=== PATIENT | female | born 1950 | race Caucasian/White ===

== ENCOUNTER 2016-04-16 12:16 | Emergency (ER) | payer MEDICARE, OTHER ==
[~2016-04-16] VITALS: Ht 157.5 cm; Wt 180.0 kg
[2016-04-16 12:16] VITALS: Ht 157.5 cm; Wt 180.0 kg
[~2016-04-16 12:16] MED LIST: BENAZEPRIL; BP MED; HTN MED; PAIN MED
--- NOTE | 2016-04-16 12:52 | ERD ---
ER Documentation Chief Complaint Date/Time DATE: 04/16/16 TIME: 12:50 Chief Complaint complains of a ground level stumble and fall last night HPI Patient is a 66-year-old female who presents with right-sided rib pain after mechanical ground-level fall. The patient states that she was walking to the bathroom at night and tripped over her slippers and struck her ribs against furniture. Denies head trauma, denies abdominal pain, denies syncope. Patient denies dyspnea. Patient states that she has pain in her right lower ribs with deep inspiration. Although not initially disclosed, prior to discharge patient states that she has had a cough for 3 days productive of yellow sputum. No measured fever. ROS All systems reviewed and are negative except as per history of present illness. Medications Home Meds Active Scripts Guaifenesin (MUCUS ER) 600 Mg Tablet.er, 600 MG PO BID, #14 TAB Prov:TAZ LANDIS 04/16/16 Tramadol HCl (Tramadol HCl) 50 Mg Tablet, 50 MG PO Q6 Y for PAIN, #24 TAB Prov:TAZ LANDIS 04/16/16 Reported Medications [Pain Med] No Conflict Check 01/27/11 [Htn Med] No Conflict Check 01/27/11 [Benazepril] No Conflict Check 01/27/11 [Bp Med] No Conflict Check 01/27/11 Allergies Allergies: Coded Allergies: No Known Allergy (Unverified , 01/28/11) PMhx/Soc Past medical history: Hypertension Past surgical history: Partial thyroidectomy, oophorectomy, partial gastrectomy , 3 Social history: Denies tobacco use History of Surgery: Yes Anesthesia Reaction: No Hx Neurological Disorder: No Hx Respiratory Disorders: No Hx Cardiac Disorders: Yes (HTN.HEP C) Hx Psychiatric Problems: No Hx Miscellaneous Medical Probl: No (PICC LINE INSERTED YESTERDAY) Hx Alcohol Use: No Hx Substance Use: No Hx Tobacco Use: No FmHx Noncontributory Family History: No coronary disease, No diabetes Physical Exam Vitals Vital Signs Date Time Temp Pulse Resp B/P Pulse Ox O2 Delivery O2 Flow Rate FiO2 04/16/16 12:16 98.4 69 20 144/69 98 Physical Exam Const: Alert, oriented, no acute Head: Atraumatic Eyes: Normal Conjunctiva ENT: Normal External Ears, Nose and Mouth. Neck: Full range of motion..~ No meningismus. NEXUS negative Resp: Anterior and lateral right-sided rib tenderness. No crepitus. No subcutaneous emphysema. Clear to auscultation bilaterally Cardio: Regular rate and rhythm, no murmurs Abd: Soft, non tender, non distended. Normal bowel sounds Skin: No petechiae or rashes Back: No midline or flank tenderness Ext: No cyanosis, or edema Neur: Awake and alert Psych: Normal Mood and Affect Results 24 hrs Current Medications Medications (Trade) Dose Ordered Sig/Bettye Route PRN Reason Start Time Stop Time Status Last Admin Dose Admin Acetaminophen/ Hydrocodone Bitart ([place] (5/325)) 1 tab ONCE ONCE PO 04/16/16 13:00 04/16/16 13:01 DC 04/16/16 13:20 Procedures/MDM MDM: Patient with mechanical ground-level fall and trauma to right chest wall. X-ray negative for fracture. Patient also reports cough productive of yellow sputum. No evidence of infiltrate on chest x-ray, afebrile, normal O2 sat. We will give prescription for guaifenesin. Tramadol for pain from rib contusion. Departure Diagnosis: Primary Impression: URI (upper respiratory infection) Condition: TAZ Pepe Apr 16, 2016 12:51
[2016-04-16] MEDS ORDERED: HYDROCODONE/APAP (5/325) TAB PO ONE (13:00)
--- NOTE | 2016-04-16 13:17 | RADRPT ---
PROCEDURE: XR right rib series. CLINICAL INDICATION: Rib pain TECHNIQUE: 2 views of the rib cage are available for review COMPARISON: No comparison study available FINDINGS: The ribs are normal in mineralization and architecture. No fracture is identified. No osseous lesi on is identified. The visualized lung miner are unremarkable. The pleural spaces are unremarkable . No effusion or pneumothorax is identified. IMPRESSION: Unremarkable examination RPTAT: HGDB .Oscar Bell MD, MD Date Time Electronically viewed and signed by .Oscar Bell MD, on 04/16/2016 13:17 .B/
[2016-04-16] MEDS ORDERED: TRAM50TA2 PO (13:26)
--- NOTE | 2016-04-16 14:17 | RADRPT ---
PROCEDURE: XR Chest. CLINICAL INDICATION: Cough. TECHNIQUE: Single frontal view. COMPARISON: None. FINDINGS: The lungs are clear. The heart size is normal. There is calcification in the aorta consistent with atherosclerosis. There is no pleural effusion. There is no pneumothorax. IMPRESSION: 1. Atherosclerosis. 2. Clear lungs. RPTAT: QQ .Obi Izaguirre MD, MD Date Time Electronically viewed and signed by .Obi Izaguirre MD, MD on 04/16/2016 14:17 .R/
[2016-04-16] MEDS ORDERED: GUAI600T PO (14:23)
[2016-04-16 16:00] VITALS: BP 141/73; PULSE 85; RESP 20; TEMP 98.3
== END 2016-04-16 17:22 | disposition home or self-care (01) ==
LOC: E/R 12:16
DX: J06.9 Acute upper respiratory infection, unspecified (principal); R40.2252 Coma scale, best verbal response, oriented, at arrival to emergency department; I10 Essential (primary) hypertension; R40.2142 Coma scale, eyes open, spontaneous, at arrival to emergency department; R40.2362 Coma scale, best motor response, obeys commands, at arrival to emergency department; W01.190A Fall on same level from slipping, tripping and stumbling with subsequent striking against furniture, initial encounter; Y92.9 Unspecified place or not applicable
CPT/HCPCS: 71010; 71100

== ENCOUNTER 2016-09-16 10:14 | Inpatient (IN) | payer MEDICARE, OTHER ==
[~2016-09-16] VITALS: Ht 162.6 cm; Wt 100.0 kg
[~2016-09-16 10:14] MED LIST changes: +GUAI600T PO; +TRAM50TA2 PO
[2016-09-16] MEDS ORDERED: SOD CHLORIDE 0.9% 1,000 ML IV STA ×2 (10:22→13:08)
--- NOTE | 2016-09-16 10:58 | RADRPT ---
PROCEDURE: XR Chest. CLINICAL INDICATION: Altered Mental Status TECHNIQUE: A single portable AP view of the chest was obtained. COMPARISON: Chest x-ray 04/16/2016 FINDINGS: The cardiac silhouette is mildly enlarged. There are atherosclerotic calcifications of the thoracic aorta. No pneumothorax, significant pleural effusion, or parenchymal consolidation is identified. There is no evidence of significant pulmonary vascular congestion. There are degenerative changes of the spine. IMPRESSION: 1. No evidence for acute cardiopulmonary disease. 2. Mild cardiomegaly. 2. Thoracic aortic atherosclerotic disease. RPTAT: QQ Physician Bridget Date Time Electronically viewed and signed by Physician Bridget on 09/16/2016 10:58 RC/
[2016-09-16 11:17] LABS: BASOPHILS % 0.4 % (0.0-2.0); EOSINOPHILS % 0.2 % (0.0-7.0); HEMATOCRIT 28.3 % (37.0-47.0); HEMOGLOBIN 9.6 g/dl (12.0-16.0); LYMPHOCYTES # 0.9 10^3/ul (0.8-2.9); LYMPHOCYTES % 10.9 % (15.0-51.0); MEAN CORPUSCULAR HEMOGLOBIN 31.6 pg (29.0-33.0); MEAN CORPUSCULAR HGB CONC 33.9 g/dl (32.0-37.0); MEAN CORPUSCULAR VOLUME 93.1 fl (82.0-101.0); MEAN PLATELET VOLUME 9.7 fl (7.4-10.4); MONOCYTE # 0.9 10^3/ul (0.3-0.9); MONOCYTES % 10.3 % (0.0-11.0); NEUTROPHIL # 6.5 10^3/ul (1.6-7.5); NEUTROPHILS % 77.6 % (39.0-77.0); PLATELET COUNT 249 10^3/UL (140-415); RED BLOOD COUNT 3.04 10^6/ul (4.20-5.40); RED CELL DISTRIBUTION WIDTH 15.3 % (11.5-14.5); WHITE BLOOD COUNT 8.3 10^3/ul (4.8-10.8)
[2016-09-16] MEDS ORDERED: DOCU250C58 PO (11:32)
[2016-09-16] MEDS ORDERED: FER325 PO (11:33)
[2016-09-16] MEDS ORDERED: GABA400C14 PO (11:33)
[2016-09-16] MEDS ORDERED: PREM625 PO (11:34)
[2016-09-16] MEDS ORDERED: MULT-105 PO (11:34)
[2016-09-16] MEDS ORDERED: LEVO137T24 PO (11:35)
[2016-09-16] MEDS ORDERED: TOPI100T42 PO (11:36)
[2016-09-16] MEDS ORDERED: ESCI20TA PO (11:36)
[2016-09-16] MEDS ORDERED: PANT40TA3 PO (11:37)
[2016-09-16] MEDS ORDERED: OLME40TA14 PO (11:37)
[2016-09-16] MEDS ORDERED: CLON-379 PO (11:38)
[2016-09-16] MEDS ORDERED: NEBI5TAB9 PO (11:39)
[2016-09-16] MEDS ORDERED: POTA20TA96 PO (11:39)
[2016-09-16] MEDS ORDERED: ERGO500037 PO (11:39)
[2016-09-16] MEDS ORDERED: PRAM0.5T18 PO (11:40)
[2016-09-16] MEDS ORDERED: SPIR25TA PO (11:40)
[2016-09-16] MEDS ORDERED: METO2.5T12 PO (11:40)
[2016-09-16] MEDS ORDERED: DIAZ5TAB4 PO ×2 (11:41→12:31)
[2016-09-16] MEDS ORDERED: HYDR50TA3 PO (11:42)
[2016-09-16] MEDS ORDERED: HYDR-902 PO (11:43)
[2016-09-16] MEDS ORDERED: LORA1TAB PO (11:43)
[2016-09-16] MEDS ORDERED: TEMA15CA PO (11:44)
[2016-09-16] MEDS ORDERED: NITR-58 PO (11:45)
[2016-09-16 11:53] LABS: INR 0.93; PROTIME 12.5 Sec (12.2-14.2)
[2016-09-16 11:54] LABS: PARTIAL THROMBOPLASTIN TIME 33.5 Sec (25.0-35.0)
[2016-09-16 12:09] LABS: ADD UMIC YES; UR AMORPHOUS CRYSTAL FEW /HPF (NONE SEEN); UR ASCORBIC ACID NEGATIVE (NEGATIVE); UR BILIRUBIN (Dip) 1+ mg/dL (NEGATIVE); UR BLOOD (Dip) NEGATIVE (NEGATIVE); UR CLARITY CLOUDY (CLEAR); UR COLOR AMBER (YELLOW); UR GLUCOSE (Dip) NEGATIVE (NEGATIVE); UR KETONES (Dip) NEGATIVE (NEGATIVE); UR LEUKOCYTE ESTERASE (Dip) 2+ Leu/ul (NEGATIVE); UR NITRITE (Dip) NEGATIVE (NEGATIVE); UR RBC 3 /HPF (0-5); UR SQUAMOUS EPITHELIAL CELL FEW /HPF (FEW); UR TOTAL PROTEIN (Dip) 1+ mg/dl (NEGATIVE); UR UROBILINOGEN (Dip) NEGATIVE (NEGATIVE)
--- NOTE | 2016-09-16 12:13 | RADRPT ---
PROCEDURE: CT Brain without. CLINICAL INDICATION: Altered mental status. TECHNIQUE: A CT of the brain was performed on multidetector high-resolution CT scanner utilizing a xial sections from the skull base through the vertex without contrast. The scan was reviewed in sof t tissue brain and high frequency resolution bone algorithm windows. Images were reviewed on a high -resolution PACS workstation. One or more the following does reduction techniques were utilized: Aut omated exposure control, adjustment of the mA/ or kV according to patient's size, or use of iterativ e reconstruction technique. The exam CTDI = 44.68 mGy and the DLP = 720.23 mGy-cm. COMPARISON: None available. FINDINGS: The ventricles and sulci are mildly prominent indicative of volume loss. There is no intracranial h emorrhage, mass effect or midline shift. No abnormal intra-axial or extra-axial fluid collections a re seen. The kincaid/white matter differentiation is preserved. There are moderate scattered foci of hypoattenuation in the white matter, which are nonspecific in e tiology but likely reflect chronic small vessel ischemic changes. There are mild intracranial vascu lar calcifications consistent with atherosclerosis. The visualized paranasal sinuses demonstrate par tial opacification of partially visualized left maxillary sinus. The mastoid air cells are essentia lly clear. IMPRESSION: 1. No acute intracranial hemorrhage, transcortical infarction or mass effect. Please note MRI is mo re sensitive for detection of acute ischemia and can be obtained as clinically warranted. 2. Mild intracranial atherosclerosis and moderate chronic small vessel ischemic changes. 3. Mild generalized cerebral volume loss. RPTAT: AA .Daniella Ojeda MD, MD Date Time Electronically viewed and signed by .Daniella Ojeda MD, MD on 09/16/2016 12:13 .N/
[2016-09-16 12:28] LABS: BARBITURATES NEGATIVE (NEGATIVE)
[2016-09-16] MEDS ORDERED: OMEP40CA6 PO (12:28)
[2016-09-16] MEDS ORDERED: LEVO125T75 PO (12:28)
[2016-09-16 12:29] LABS: BENZODIAZEPINES POSITIVE (NEGATIVE); CANNABINOIDS NEGATIVE (NEGATIVE); COCAINE NEGATIVE (NEGATIVE); OPIATES POSITIVE (NEGATIVE)
[2016-09-16] MEDS ORDERED: TOPI50TA86 PO (12:29)
[2016-09-16] MEDS ORDERED: FURO40TA4 PO (12:29)
[2016-09-16] MEDS ORDERED: CEFTRIAXONE 1 GM/50 ML (PMX) 50 ML IVPB ONE (12:30)
[2016-09-16] MEDS ORDERED: NITR50CA38 PO (12:30)
[2016-09-16] MEDS ORDERED: GABA300C16 PO (12:31)
[2016-09-16] MEDS ORDERED: NEBI10TA2 PO (12:32)
[2016-09-16] MEDS ORDERED: METO5TAB65 PO (12:33)
[2016-09-16] MEDS ORDERED: CLON1PAT2 TD (12:34)
[2016-09-16 12:58] LABS: ALANINE AMINOTRANSFERASE 36 IU/L (13-69); ALBUMIN 3.8 g/dl (3.3-4.9); ALBUMIN/GLOBULIN RATIO 1.18; ALKALINE PHOSPHATASE 56 IU/L (42-121); ANION GAP 22 (8-16); ASPARTATE AMINO TRANSFERASE 42 IU/L (15-46); BILIRUBIN,INDIRECT 0.3 mg/dl (0-1.1); BILIRUBIN,TOTAL 0.3 mg/dl (0.2-1.3); BLOOD UREA NITROGEN 81 mg/dl (7-20); CALCIUM 8.1 mg/dl (8.4-10.2); CARBON DIOXIDE 21 mmol/L (21-31); CHLORIDE 88 mmol/L (97-110); CREATINE KINASE 275 IU/L (23-200); CREATININE 6.25 mg/dl (0.44-1.00); GLUCOSE 111 mg/dl (70-220); SODIUM 125 mmol/L (135-144)
[2016-09-16 13:06] LABS: ACETAMINOPHEN < 10.0 ug/ml (10.0-30.0); ETHANOL < 10.0 mg/dl; POTASSIUM 6.2 mmol/L (3.5-5.1); SALICYLATE < 1.0 mg/dl (5.0-30.0)
[2016-09-16] MEDS ORDERED: FUROSEMIDE 40 MG INJ IV STA (13:07)
[2016-09-16] MEDS ORDERED: ALBUTEROL 0.5% (NEB) 2.5 MG/0.5 ML AMP INH STA (13:07)
[2016-09-16] MEDS ORDERED: NA BICARBONATE 8.4% 50 ML SYG IV STA (13:07)
[2016-09-16] MEDS ORDERED: CA CHLORIDE 10% 10 ML SYRINGE IV STA (13:07)
[2016-09-16] MEDS ORDERED: NA POLYST SULFON 15 GM/60 ML BTL PO STA (13:07)
[2016-09-16 13:09] LABS: CK-MB 7.71 ng/ml (0.0-2.4); TROPONIN-I < 0.012 ng/ml (0.00-0.12)
--- NOTE | 2016-09-16 13:30 | ERA ---
ER Documentation Chief Complaint Date/Time DATE: 09/16/16 TIME: 13:21 Chief Complaint FOUND ALOC PER STAFF MEMBERS. NO TRAUMA. UNK LKWT. HPI This is a 66-year-old female that presents to the emergency department with changes in her mental status. The patient lives in assisted living facility and was found crawling on the floor in the hallway of her apartment complex. The patient indicated that she had taken one [place] prior to arrival and had not eaten for several days. The patient has also complained of frequency urgency and dysuria. She states she has had no fevers or shaking or chills. She denies any difficulty breathing. She has no chest pain or pressure and denies a headache. The patient indicated she did not experience a mechanical fall but just felt weak and unable to stand up after taking the [place] several hours prior to arrival. The patient also has a large battery of medications that was brought with her by EMS and she states she has been noncompliant with all of her medications over the past several days. The patient states she takes the [place] for chronic pain but is unable to give any further history as to where the pain is located. When reviewing the patient's medications she is on Lexapro and she states she has a history of depression but denies any suicidal or homicidal thoughts ideations and indicated this was not an intentional overdose. ROS All systems reviewed and are negative except as per history of present illness. Medications Home Meds Reported Medications Clonidine Patch (CLONIDINE PATCH) 0.2 Mg/24 Hr Patch, 1 PATCH.WK TD Q7D, #4 PATCH.WK 09/16/16 Metolazone* (Metolazone*) 5 Mg Tablet, 2.5 MG PO [id number], TAB EVERY OTHER DAY 09/16/16 Nebivolol Hcl* (Bystolic*) 10 Mg Tablet, 10 MG PO DAILY, #30 TAB 09/16/16 Gabapentin* (Gabapentin*) 300 Mg Capsule, 300 MG PO BID, #60 CAP 09/16/16 Nitrofurantoin Macrocrystal* (Macrodantin*) 50 Mg Cap, 50 MG PO DAILY, CAP 09/16/16 Topiramate* (Topiramate*) 50 Mg Tablet, 50 MG PO QHS, TAB 09/16/16 Furosemide* (Furosemide*) 40 Mg Tablet, 40 MG PO DAILY, TAB 09/16/16 Omeprazole* (Omeprazole*) 40 Mg Capsule.dr, 40 MG PO DAILY, #30 CAP 09/16/16 Levothyroxine Sodium* (Levothyroxine Sodium*) 125 Mcg Tablet, 125 MCG PO BEFORE BREAKFAST, #30 TAB 09/16/16 Lorazepam* (Lorazepam*) 1 Mg Tablet, 1 MG PO TID Y for ANXIETY, #90 TAB 09/16/16 Hydrochlorothiazide* (Hydrochlorothiazide*) 50 Mg Tab, 50 MG PO DAILY, #30 TAB 09/16/16 Diazepam* (Diazepam*) 5 Mg Tablet, 5 MG PO TID, TAB 09/16/16 Spironolactone* (Aldactone*) 25 Mg Tablet, 25 MG PO DAILY, #30 TAB 09/16/16 Pramipexole* (Mirapex*) 0.5 Mg Tablet, 0.5 MG PO DAILY, TAB 09/16/16 Ergocalciferol (Vitamin D2) (VITAMIN D2) 50,000 Unit Capsule, 42971 UNIT PO Q7D , CAP 09/16/16 Potassium Chloride* (Potassium Chloride*) 20 Meq Tablet.er, 20 MEQ PO DAILY, TAB.SA 09/16/16 Clonidine Hcl* (Clonidine Hcl*) 0.1 Mg Tab, 0.1 MG PO TID Y for NEEDED, TAB FOR SBP<165 09/16/16 Olmesartan Medoxomil (Benicar) 40 Mg Tablet, 40 MG PO DAILY, #30 TAB 09/16/16 Escitalopram Oxalate* (Lexapro*) 20 Mg Tablet, 20 MG PO DAILY, #30 TAB 09/16/16 Multivitamin with Minerals (Multivitamins with Minerals) 1 Each Tablet, 1 EACH PO DAILY, TAB 09/16/16 Ferrous Sulfate* (Ferrous Sulfate*) 325 Mg Tabec, 325 MG PO DAILY, TAB 09/16/16 Docusate Sodium* (Colace*) 250 Mg Capsule, 250 MG PO DAILY, #30 CAP 09/16/16 Discontinued Reported Medications Diazepam* (Diazepam*) 5 Mg Tablet, 5 MG PO TID, TAB 09/16/16 Nitrofurantoin Monohyd Macrocr* (Macrobid*) 100 Mg Capsr, 100 MG PO DAILY, CAP 09/16/16 Temazepam* (Temazepam*) 15 Mg Capsule, 15 MG PO HS Y for INSOMNIA, CAP 09/16/16 Hydrocodone/Acetaminophen ([place] 10-325 Tablet) 1 Each Tablet, 1 EACH PO TID, TAB 09/16/16 Metolazone* (Metolazone*) 2.5 Mg Tablet, 2.5 MG PO DAILY, TAB 09/16/16 Nebivolol* (Bystolic*) 5 Mg Tab, 5 MG PO DAILY, #30 TAB 09/16/16 Pantoprazole* (Protonix*) 40 Mg Tablet.dr, 40 MG PO DAILY, TAB 09/16/16 Topiramate* (Topamax*) 100 Mg Tablet, 100 MG PO DAILY Y for NEEDED, TAB 09/16/16 Levothyroxine Sodium* (Synthroid*) 137 Mcg Tablet, 137 MCG PO BEFORE BREAKFAST, #30 TAB 09/16/16 Estrogens Conjugated* (Premarin*) 0.625 Mg Tab, 0.625 MG PO Q2DAYS, TAB 09/16/16 Gabapentin* (Gabapentin*) 400 Mg Capsule, 400 MG PO TID, #90 CAP 09/16/16 [Pain Med] No Conflict Check 01/27/11 [Htn Med] No Conflict Check 01/27/11 [Benazepril] No Conflict Check 01/27/11 [Bp Med] No Conflict Check 01/27/11 Discontinued Scripts Guaifenesin (MUCUS ER) 600 Mg Tablet.er, 600 MG PO BID, #14 TAB Prov:TAZ LANDIS 04/16/16 Tramadol HCl (Tramadol HCl) 50 Mg Tablet, 50 MG PO Q6 Y for PAIN, #24 TAB Prov:TAZ LANDIS 04/16/16 Allergies Allergies: Coded Allergies: No Known Allergy (Unverified , 09/16/16) PMhx/Soc History of Surgery: No Anesthesia Reaction: No Hx Neurological Disorder: No Hx Respiratory Disorders: No Hx Cardiac Disorders: No Hx Psychiatric Problems: Yes (depression and anxiety, HTN and Gerd, ) Hx Miscellaneous Medical Probl: Yes (chronic pain, Hepatitis C, ) Hx Alcohol Use: No Hx Substance Use: No Hx Tobacco Use: No Smoking Status: Never smoker Physical Exam Vitals Vital Signs Date Time Temp Pulse Resp B/P Pulse Ox O2 Delivery O2 Flow Rate FiO2 09/16/16 13:50 98.1 51 18 117/71 95 Room Air 09/16/16 13:30 60 18 95 21 8/6/17 10:30 97.5 75 20 133/100 98 Physical Exam Constitutional:Well-developed. Well-nourished. HEENT:Normocephalic. Atraumatic.Pupils were 2mm equal round reactive to light. Very dry mucous membranes.No tonsillar exudates. No nasoseptal hematoma. No hemotympanum. Neck: No nuchal rigidity. No lymphadenopathy. No posterior cervical spine tenderness or step-offs. Respiratory: Not using accessory muscles of respiration.Lungs were clear to auscultation bilaterally. No rhonchi. No rales. No wheezing. Cardiovascular: Regular rate regular rhythm.No murmurs. No rubs were appreciated.S1, S2 normal. Distal pulses are palpable 2+ bilaterally. GI: Abdomen was soft. Nontender. Non Distended. No pulsatile abdominal masses or bruits. No rebound. No guarding. Bowel sounds were present and normal. Muscle skeletal: Full range of motion of both the upper and lower extremities bilaterally.Normal muscle tone.No assymetrical calf tenderness or swelling. Skin: No petechia, no purpura. No lesions on the palms or the soles of the feet. No maculopapular rash. NEURO: Patient was alert, awake, orientated x3. Patient was slow to answer questions and speech was slightly slurred. No facial droop or flattening nasolabial fold. Gait not observed as patient was too altered to ambulate Result Diagram: 09/16/16 1105 09/16/16 1220 Results 24 hrs Laboratory Tests Test 09/16/16 11:05 09/16/16 11:20 09/16/16 12:20 White Blood Count 8.310^3/ul Red Blood Count 3.0410^6/ul Hemoglobin 9.6g/dl Hematocrit 28.3% Mean Corpuscular Volume 93.1fl Mean Corpuscular Hemoglobin 31.6pg Mean Corpuscular Hemoglobin Concent 33.9g/dl Red Cell Distribution Width 15.3% Platelet Count 68092^3/UL Mean Platelet Volume 9.7fl Neutrophils % 77.6% Lymphocytes % 10.9% Monocytes % 10.3% Eosinophils % 0.2% Basophils % 0.4% Nucleated Red Blood Cells % 0.0/100WBC Neutrophils # 6.510^3/ul Lymphocytes # 0.910^3/ul Monocytes # 0.910^3/ul Eosinophils # 0.010^3/ul Basophils # 0.010^3/ul Nucleated Red Blood Cells # 0.010^3/ul Prothrombin Time 12.5Sec Prothrombin Time Ratio 1.0 INR International Normalized Ratio 0.93 Activated Partial Thromboplast Time 33.5Sec Urine Color KOFI Urine Clarity CLOUDY Urine pH 5.0 Urine Specific [place] 1.020 Urine Ketones NEGATIVEmg/dL Urine Nitrite NEGATIVEmg/dL Urine Bilirubin 1+mg/dL Urine Urobilinogen NEGATIVEmg/dL Urine Leukocyte Esterase 2+Abhinav/ul Urine Microscopic RBC 3/HPF Urine Microscopic WBC 30/HPF Urine Squamous Epithelial Cells FEW/HPF Urine Amorphous Crystals FEW/HPF Urine Hemoglobin NEGATIVEmg/dL Urine Glucose NEGATIVEmg/dL Urine Total Protein 1+mg/dl Urine Opiates Screen POSITIVE Urine Barbiturates NEGATIVE Urine Amphetamines Screen NEGATIVE Urine Benzodiazepines Screen POSITIVE Urine Cocaine Screen NEGATIVE Urine Cannabinoids NEGATIVE Sodium Level 125mmol/L Potassium Level 6.2mmol/L Chloride Level 88mmol/L Carbon Dioxide Level 21mmol/L Anion Gap 22 Blood Urea Nitrogen 81mg/dl Creatinine 6.25mg/dl Glucose Level 111mg/dl Calcium Level 8.1mg/dl Total Bilirubin 0.3mg/dl Direct Bilirubin 0.00mg/dl Indirect Bilirubin 0.3mg/dl Aspartate Amino Transf (AST/SGOT) 42IU/L Alanine Aminotransferase (ALT/SGPT) 36IU/L Alkaline Phosphatase 56IU/L Creatine Kinase 275IU/L Creatine Kinase Index 2.8 Creatinine Kinase MB (Mass) 7.71ng/ml Troponin I < 0.012ng/ml Total Protein 7.0g/dl Albumin 3.8g/dl Globulin 3.20g/dl Albumin/Globulin Ratio 1.18 Salicylates Level < 1.0mg/dl Acetaminophen Level < 10.0ug/ml Ethyl Alcohol Level < 10.0mg/dl Current Medications Medications (Trade) Dose Ordered Sig/Bettye Route PRN Reason Start Time Stop Time Status Last Admin Dose Admin Sodium Chloride 1,000 ml @ 1,000 mls/hr Q1H STAT IV 09/16/16 10:22 09/16/16 11:21 DC 09/16/16 12:12 Ceftriaxone Sodium (Rocephin) 50 ml @ 100 mls/hr ONCE ONCE IVPB 8/6/17 12:30 09/16/16 12:59 DC 09/16/16 12:28 Furosemide (Lasix) 40 mg ONCE STAT IV 09/16/16 13:07 09/16/16 13:14 DC Sodium Polystyrene Sulfonate (Kayexalate) 30 gm ONCE STAT PO 09/16/16 13:07 09/16/16 13:14 DC 09/16/16 13:29 Albuterol (Proventil 0.5% (Neb)) 15 mg ONCE STAT INH 09/16/16 13:07 09/16/16 13:14 DC 09/16/16 13:28 Sodium Bicarbonate (Na Bicarb 8.4% Syg) 50 ml ONCE STAT IV 09/16/16 13:07 09/16/16 13:14 DC 09/16/16 13:29 Calcium Chloride 1000 mg 1,000 mg ONCE STAT IV 09/16/16 13:07 09/16/16 13:14 DC 09/16/16 13:30 Sodium Chloride (NS) 1,000 ml @ 1,000 mls/hr Q1H STAT IV 09/16/16 13:08 09/16/16 14:07 09/16/16 13:31 Ondansetron HCl (Zofran Inj) 4 mg ER BRIDGE PRN IV NAUSEA AND/OR VOMITING 09/16/16 14:30 09/17/16 14:29 Acetaminophen (Tylenol Tab) 650 mg ER BRIDGE PRN PO MILD PAIN/FEVER 09/16/16 14:30 09/17/16 14:29 Procedures/MDM The patient presented to the emergency department with an acute and persistent change in their mental status. The differential diagnosis is diverse however reversible causes such as hypoglycemia, opiate overdose, thiamine deficiency were immediately considered. The patient was placed on a roof mechanic, continuous pulse oximetry and IV access was established. The patients airway was secure however hypoxic events such as anemia, shock, or severe pulmonary disease were all considered as etiologies in this patients presentation. Circulation assessed with good cap refill and did not require fluids or pressure support. Finger stick for rapid glucose determined to be normal. The patient appeared to have clinical dehydration and was given a liter bolus of normal saline. The patient had significant renal failure with a BUN of 81 and a creatinine of 6.25 with a BUN to creatinine ratio of 12.96 likely indicating renal pathology. Therefore I am going to obtain a renal ultrasound as there is no previous laboratory work for comparison, which is concerning for new onset renal failure. I have added a uric acid and phosphorus in order to determine if this is likely from severe dehydration or chronic in nature. The patient was also hyperkalemic with a potassium of 6.2. This was repeated and not hemolyzed and given that it was still elevated the patient was treated for hyperkalemia given an amp of calcium chloride and bicarb Kayexalate Lasix and albuterol to improve the patient's hyperkalemia. 12 Lead EKG tracing ordered and reviewed by myself showed: Normal sinus rhythm of 76 bpm and no arrhythmia. TN interval normal. QRS duration normal. No ST segment elevation No ST segment depression. No changes consistent with acute ischemia. The patient also had a urinary tract infection. Blood cultures and urine cultures were obtained as well as a Rojas catheter for measurement of the patient's urinary output. The patient was treated with IV ceftriaxone. I obtained a CT scan of the patient's head which was reviewed by the radiologist myself and indicated the followin. The proximal intradural vertebral arteries are excluded from the images and cannot be evaluated, slightly limiting evaluation. 2. No evidence of intracranial arterial stenosis. 3. No evidence of intracranial aneurysm. 1 view chest radiograph showed cardiomegaly with no infiltrates or pneumothorax. There was concern for accidental opiate overdose but I did not administer Narcan as the patient was alert awake and answering questions appropriately. The patient's urine drug screen was positive for opiates and benzodiazepines. Serum ethanol level was undetected The patient also had hyponatremia with a serum sodium 125 and was given gentle IV fluid hydration with a liter bolus of normal saline. I spoke with the patient's brine tank tender Dr. Johnson. He indicated that the patient has a history of narcotic abuse with [place] and has not seen the patient for a while however he kindly stated he will be consulted from a nephrology perspective due to her new onset renal failure. He requested the patient be admitted to the hospitalist and therefore I spoke with Dr. Zuniga who stated he will admit the patient. When the patient initially arrived she was hypotensive however after receiving IV fluids her blood pressure was 120/90. The patient will be admitted in serious condition to the telemetry service with an anticipated stay of greater than 2 midnights. Critical Care: Time: 65 minutes Treatments/Evaluations: Close monitoring and treatment of unstable vital signs, cardiorespiratory, and neurologic status, while maintaining tight balance of fluid, respiratory, and cardiac interventions. Time does not include performing any of the above billable procedures. Departure Diagnosis: Primary Impression: Acute renal failure Qualified Code: N17.9 - Acute renal failure, unspecified acute renal failure type Additional Impressions: Hyperkalemia Urinary tract infection Qualified Code: N30.00 - Acute cystitis without hematuria Opiate overdose Qualified Code: T40.601A - Opiate overdose, accidental or unintentional, initial encounter Toxic encephalopathy Condition: Serious FERNANDO GAITAN Sep 16, 2016 13:30
--- NOTE | 2016-09-16 14:08 | RADRPT ---
PROCEDURE: Renal US. CLINICAL INDICATION: new onset renal failure TECHNIQUE: Multiple sonographic images of the kidneys were obtained. The images were reviewed on a PACS workstation. COMPARISON: No prior studies are available for comparison. FINDINGS: The kidneys are well visualized. The right kidney measures 8.9 cm. The left kidney measures 9.8 cm. There are no focal areas of abnormal echogenicity. There is no evidence for obstructive uropathy. Th e bladder is grossly unremarkable. IMPRESSION: No definite abnormalities are identified. RPTAT:AAJJ Physician Lalo Date Time Electronically viewed and signed by Physician Lalo on 09/16/2016 14:08 [place]/
[2016-09-16] MEDS ORDERED: BISACODYL 10 MG SUPP PR PRN (14:30)
[2016-09-16] MEDS ORDERED: NACL 0.9% 3 ML SYG IV SCH (14:30)
[2016-09-16] MEDS ORDERED: DOCUSATE SODIUM 100 MG CAP PO PRN (14:30)
[2016-09-16] MEDS ORDERED: morphine 2 MG INJ IV PRN (14:30)
[2016-09-16] MEDS ORDERED: HYDROCODONE/APAP (5/325) TAB PO PRN ×2 (14:30)
[2016-09-16] MEDS ORDERED: ACETAMINOPHEN 325 MG TAB PO PRN (14:30)
[2016-09-16] MEDS ORDERED: ACETAMINOPHEN 650 MG SUPP PR PRN (14:30)
[2016-09-16] MEDS ORDERED: ONDANSETRON 4 MG INJ IV PRN (14:30)
[2016-09-16] MEDS ORDERED: MAGNESIUM HYDROXIDE 30ML CUP PO PRN (14:30)
[2016-09-16 14:51] LABS: PHOSPHORUS 6.9 mg/dl (2.5-4.9); URIC ACID 12.5 mg/dl (3.1-7.9)
--- NOTE | 2016-09-16 14:53 | HP ---
Date/Time of Note Date/Time of Note DATE: 09/16/16 TIME: 14:44 Assessment/Plan VTE Prophylaxis VTE Prophylaxis Intervention: SCD's Assessment/Plan Chief Complaint/Hosp Course Impression and plan 1. Acute renal failure. Patient does have history of acute renal insufficiency and previously followed up with precision lens grinder apprentice Dr. Isaak Barr. We will consult precision lens grinder apprentice again. Will continue with IV hydration. Monitor electrolyte disturbances. 2. Hyponatremia. Patient was reported with reported poor oral intake. Will start on IV hydration. Monitor level. 3. Hyperkalemia. In the setting of acute renal failure. Provide with Kayexalate. Real Estate Loan Officer was consulted. Await recommendations. 4. Altered mentation. Likely secondary to toxic encephalopathy. Patient with underlying UTI and also with electrolyte disturbances. CT scan of the head was negative. Patient noted with positive opioid and benzodiazepine tox screen. Possible overdose. Patient more alert at this time. Continue neuro checks. We will treat underlying UTI. 5. Urinary tract infection. Will start on antibiotics for now. We will follow -up on urine cultures. 6. Suspect history of chronic pain syndrome. Will get pain management physician to follow. 7. Suspect opiate overdose. Patient alert at this time. Narcan not given. Monitor for now. Monitor neuro status. Pain management physician to follow. Admission process time greater than 40 minutes Discussed plan of care with Dr. Frank Problems: HPI/ROS Admit Date/Time Admit Date/Time Hx of Present Illness This is a 66-year-old female with history of chronic kidney disease, chronic pain on lower back, hypothyroidism, hypertension, suspect depression, who came to [facility] after reportedly being found with altered mentation. Patient reportedly lives at a living assisted facility and was found to be crawling on the floor in her hallway of her apartment complex. There is reported patient was taking [place] for her pain and reportedly patient had not been eating for several days. we did interview the patient stated that she had been feeling sick the day prior to admission. She went to her primary care provider and was told she had a bladder infection. Patient did state that she was given antibiotics but had not taken it. On the day of admission patient reportedly felt dizzy and worse with subjective reports of chest pain and shortness of breath. She did report sitting down on her hallway but denied any loss of consciousness. She states that she was able to get up and as such when she was found was brought to [facility] for further evaluation. On arrival patient was found to have large amount of medications and it is questionable whether patient has been compliant with her medications. She reports having chronic pain on her back. No reports of suicidal ideation. On examination she did have blood work drawn that did show her to be slightly anemic with hemoglobin of 9.6 hematocrit 20.3. Additionally she had basic metabolic panel done that did show her to have a sodium of 125 and potassium of 6.2 and BUN of 81 and a creatinine of 6.25. She also had a creatinine kinase of 275. Initial troponin was noted at 0.012. Renal ultrasound showed no definite abnormalities and brain CT scan of her head showed no acute intracranial hemorrhage or infarction or mass-effect. Patient is verbal communication but she is slightly lethargic. Chest x-ray also revealed her to have no evidence of acute cardio pulmonary disease process. She remained afebrile as well. Urinalysis on examination did show her to have positive leukocyte esterase test suspect for UTI. Currently the patient appears more awake however she still remains lethargic. She is responsive to verbal response. She does report less pain at this time. We will evaluate her for the aformentiond issues. ROS 12 point review of systems obtained and entirely negative except that mentioned in the history of present illness PMH/Family/Social Past Medical History Medical/surgical history chronic kidney disease, chronic pain on lower back, hypothyroidism, hypertension , suspect depression (per patient report) Social History Alcohol Use: none Smoking Status: Never smoker Drug Use: none Exam/Review of Systems Vital Signs Vitals Vital Signs Date Time Temp Pulse Resp B/P Pulse Ox O2 Delivery O2 Flow Rate FiO2 09/16/16 13:50 98.1 51 18 117/71 95 Room Air 09/16/16 13:30 21 Exam Constitutional: alert (Lethargic), other (Obese) Psych: other Head: normocephalic (Appears slightly anxious) Eyes: nl conjunctiva Neck: supple, No jvd Respiratory: clear to auscultation Cardiovascular: other (Bradycardic to regular rate) Gastrointestinal: soft, No tender Musculoskeletal: swelling (Minimally bilateral lower extremities) Neurological: other (Alert to verbal response. Slightly lethargic. Oriented to self) Labs Result Diagram: 09/16/16 1105 09/16/16 1220 Medications Medications Current Medications Diazepam (Valium) 5 mg TID PO ; Start 09/16/16 at 21:00 Docusate Sodium (Colace) 250 mg DAILY PO ; Start 09/17/16 at 09:00 Ferrous Sulfate (Ferrous Sulfate (Ec)) 325 mg DAILY PO ; Start 09/17/16 at 09:00 Gabapentin (Neurontin) 300 mg BID PO ; Start 09/16/16 at 21:00 Miscellaneous Medication (Bystolic) 10 mg DAILY PO ; Start 09/17/16 at 09:00 Topiramate (Topamax) 50 mg QHS PO ; Start 09/16/16 at 21:00 Multivitamins/ Minerals (Theragran-M) 1 tab DAILY PO ; Start 09/17/16 at 09:00 Pantoprazole 40 mg 40 mg DAILY@06 PO ; Start 09/17/16 at 06:00 Sodium Chloride (NS) 1,000 ml @ 100 mls/hr Q10H IV ; Start 09/16/16 at 14:11 Ondansetron HCl (Zofran Inj) 4 mg Q6H PRN IV NAUSEA AND/OR VOMITING; Start 09/16 at 14:30 Acetaminophen (Tylenol Tab) 650 mg Q6H PRN PO PAIN LEVEL 1-3 OR FEVER; Start at 14:30 Acetaminophen (Tylenol Supp) 650 mg Q6H PRN GA PAIN LEVEL 1-3 OR FEVER; Start 09/16/16 at 14:30 Acetaminophen/ Hydrocodone Bitart ([place] (5/325)) 1 tab Q6H PRN PO MODERATE PAIN LEVEL 4-6; Start 09/16/16 at 14:30 Acetaminophen/ Hydrocodone Bitart ([place] (5/325)) 2 tab Q6H PRN PO SEVERE PAIN LEVEL 7-10; Start 09/16/16 at 14:30 Morphine Sulfate (morphine) 2 mg Q4H PRN IV SEVERE PAIN LEVEL 7-10; Start at 14:30 Docusate Sodium (Colace) 100 mg Q12H PRN PO CONSTIPATION; Start 09/16/16 at 14: 30 Magnesium Hydroxide (Milk Of Mag) 30 ml DAILY PRN PO CONSTIPATION; Start at 14:30 Bisacodyl (Dulcolax Supp) 10 mg DAILY PRN [place] CONSTIPATION; Start 09/16/16 at 14: 30 ARIAN WASHINGTON Sep 16, 2016 14:53
[2016-09-16 15:10] VITALS: TEMP 98.1
[2016-09-16 15:39] VITALS: PULSE 85
[2016-09-16 15:40] VITALS: Ht 162.6 cm; Wt 100.0 kg
[2016-09-16 15:58] VITALS: BP 91/55; RESP 18
[2016-09-16] MEDS: SOD CHLORIDE 0.9% 1,000 ML IV SCH ×2 (15:58→23:03)
[2016-09-16 17:00] VITALS: PULSE 85
[2016-09-16 20:00] VITALS: BP 96/48; RESP 18
[2016-09-16 20:05] VITALS: PULSE 66
[2016-09-16] MEDS: DIAZEPAM 5 MG TAB PO SCH (20:48)
[2016-09-16] MEDS: GABAPENTIN 300 MG CAP PO SCH (20:48)
[2016-09-16] MEDS ORDERED: FAMOTIDINE 20 MG TAB PO SCH (21:00)
[2016-09-16] MEDS: TOPIRAMATE 25 MG TAB PO SCH (23:03)
[2016-09-17] VITALS (11 sets, daily range): BP systolic 88–129; BP diastolic 45–68; PULSE 69–96; RESP 15–19
[2016-09-17] MEDS: SOD CHLORIDE 0.9% 1,000 ML IV SCH ×2 (03:13→20:11)
[2016-09-17] MEDS: ALBUTEROL/IPRATROPIUM (NEB) 3 ML AMP HHN PRN (03:49)
[2016-09-17] MEDS: PANTOPRAZOLE (EC) 40 MG TAB PO SCH (05:19)
--- NOTE | 2016-09-17 05:20 | RADRPT ---
PROCEDURE: Chest. CLINICAL INDICATION: Wheezing. TECHNIQUE: Single frontal view of the chest was obtained. COMPARISON: 09/16/2016. FINDINGS: The cardiac silhouette is magnified. The aortic arch is uncoiled and calcified. There is no focal consolidation, vascular congestion or pleural effusion. There is no pneumothorax. IMPRESSION: No evidence for active cardiopulmonary disease. Aortic atherosclerosis. .Miller Fisher MD, Date Time Electronically viewed and signed by .Miller Fisher MD, MD on 09/17/2016 05:20 .T/
[2016-09-17] MEDS: LEVOTHYROXINE 125 MCG TAB PO SCH (06:11)
[2016-09-17 07:06] LABS: ALBUMIN 2.9 g/dl (3.3-4.9); ALBUMIN/GLOBULIN RATIO 1.03; CHOL/HDL RATIO 3.2 RATIO; CREATININE 4.04 mg/dl (0.44-1.00); MAGNESIUM 1.8 mg/dl (1.7-2.5); PHOSPHORUS 6.7 mg/dl (2.5-4.9); TOTAL PROTEIN 5.7 g/dl (6.1-8.1)
[2016-09-17 07:13] LABS: TOTAL IRON BINDING CAPACITY 245 ug/dl (241-421)
[2016-09-17 07:23] LABS: T3 UPTAKE 40.7 % (23.5-40.5)
[2016-09-17 07:25] LABS: IRON 31 ug/dl (35-150)
[2016-09-17 07:37] LABS: THYROID STIMULATING HORMONE 2.03 MIU/L (0.465-4.680)
[2016-09-17] MEDS ORDERED: NEBIVOLOL 5 MG TAB PO SCH (09:00)
--- NOTE | 2016-09-17 09:29 | CONS ---
DATE OF ADMISSION: 09/16/2016 DATE OF CONSULTATION: 09/17/2016 Nephrology Consultation REASON FOR CONSULTATION: Acute kidney injury. REQUESTING PHYSICIANS: MD Philly Banks MD HISTORY OF PRESENT ILLNESS: This is a 66-year-old female with a past medical history of chronic kidney disease stage 3B/4, history of chronic lower back pain, hypothyroidism, hypertension, who presented to [facility] with altered mental status. The patient lives at an assisted living facility and was found to be on the floor in the apartment complex. The patient was taking [place] for pain and reportedly has not been eating for several days. The patient stated she recently went to her primary care physician for a bladder infection, was given antibiotics but had not taken them. The patient, as a result, came to [facility] Emergency Room. Upon arrival, the patient was noted to be altered. Her laboratory data showed a BUN of 81, creatinine 6.25, potassium 6.2, and a sodium of 125. The patient also had a urinalysis that was noted to be dirty. She was given IV fluids, IV antibiotics in the emergency room and admitted to telemetry. Overnight the patient has remained confused, but no other acute events noted. In terms of patient's renal history, the patient has underlying chronic kidney disease with unknown recent baseline creatinine. She was seen by her pan dumper in an outpatient setting. The patient, however, is unaware of the pan dumper's name. She denies any reports of any hemoptysis, hematemesis, or hematochezia. PAST MEDICAL HISTORY: As stated above. History of chronic kidney disease, history of hypothyroidism, history of back pain, hypertension. PAST SURGICAL HISTORY: Unclear. ALLERGIES: NO KNOWN DRUG ALLERGIES. FAMILY HISTORY: Noncontributory. SOCIAL HISTORY: Does not drink, smoke, or do drugs. MEDICATION: Patient medications been reviewed. REVIEW OF SYSTEMS: Review of systems was somewhat limited as the patient is altered. Pertinent positives obtained by reviewing medical records, speaking to hospital staff, as stated in HPI, otherwise negative. PHYSICAL EXAMINATION: VITAL SIGNS: Blood pressure is 88/62, respirations 19, pulse 65, temperature 98.3. HEENT: Head is normocephalic. NECK: Supple. HEART: Regular rate. LUNGS: Diminished breath sounds at the base. ABDOMEN: Soft, nontender to palpation. No rebound or guarding. EXTREMITIES: Negative for clubbing, cyanosis. Trace edema. DERMATOLOGIC: No rashes. MUSCULOSKELETAL: No joint effusion. NEUROLOGIC: Limited exam due to lack of patient cooperation but no obvious focal deficits. LABORATORY: Sodium 130, potassium 5.0, chloride 94. BUN 76, creatinine 4.04. White count 8.3, hemoglobin 9.6, hematocrit of 28.2, and platelet count of 249. Initial imaging studies reviewed, no acute cardiopulmonary disease. ASSESSMENT AND PLAN: This is a 66-year-old female presents with: 1. Nonoliguric acute kidney injury on top of chronic kidney disease stage 3B/4 with unknown baseline creatinine. Etiology of acute kidney injury secondary to hemodynamics, volume depletion due to diuretic therapy. The patient's renal function has improved with IV hydration. The patient's urinalysis was reviewed, no active sediment. The plan at this point is to continue current treatment plan. Continue gentle IV hydration. Continue to hold diuretic therapy. Will monitor renal function closely. Will repeat urinalysis. The patient's renal ultrasound was reviewed, no evidence of obstruction. 2. Hyperkalemia. Etiology is multifactorial secondary to acute kidney injury, aldactone effect, potassium chloride supplementation. The patient's potassium levels have improved. Continue IV hydration and monitor. Continue low potassium diet. 3. Hyponatremia secondary to acute kidney injury causing decreased free water urinary excretion. The patient's sodium levels are improving. Continue IV hydration. 4. Anemia. Monitor hemoglobin and hematocrit levels. 5. Mineral bone disorder. Continue to monitor calcium and phosphorus levels. 6. Acute encephalopathy. Etiology is multifactorial secondary to medications, toxic metabolic, uremia. Continue to monitor. Continue current treatment plan. 7. Sepsis, secondary to urinary tract infection. Continue current antibiotic regimen. 8. History of opiate dependence. Continue to monitor. Thank you, Dr. Frank, for this interesting consult. It will be a pleasure to follow the patient with you throughout the hospital course. Dictated By: Lucas Long DO /marco/kyung /Document#: [id number]
[2016-09-17] MEDS: FERROUS SULFATE (EC) 325 MG TAB PO SCH (09:44)
[2016-09-17] MEDS: DIAZEPAM 5 MG TAB PO SCH ×2 (09:45→12:41)
[2016-09-17] MEDS: MULTIVITAMINS/MINERALS TAB PO SCH (09:45)
[2016-09-17] MEDS: GABAPENTIN 300 MG CAP PO SCH (09:45)
[2016-09-17] MEDS: DOCUSATE SODIUM 250 MG CAP PO SCH (09:45)
[2016-09-17] MEDS: CEFTRIAXONE 2 GM/50 ML (PMX) 50 ML IVPB SCH (12:41)
[2016-09-17 15:36] LABS: ADD UMIC YES; UR AMORPHOUS CRYSTAL FEW /HPF (NONE SEEN); UR ASCORBIC ACID NEGATIVE (NEGATIVE); UR BILIRUBIN (Dip) NEGATIVE (NEGATIVE); UR BLOOD (Dip) 1+ mg/dL (NEGATIVE); UR CLARITY CLOUDY (CLEAR); UR COLOR YELLOW (YELLOW); UR GLUCOSE (Dip) NEGATIVE (NEGATIVE); UR KETONES (Dip) NEGATIVE (NEGATIVE); UR LEUKOCYTE ESTERASE (Dip) NEGATIVE Leu/ul (NEGATIVE); UR NITRITE (Dip) NEGATIVE (NEGATIVE); UR RBC 0 /HPF (0-5); UR TOTAL PROTEIN (Dip) NEGATIVE (NEGATIVE); UR UROBILINOGEN (Dip) NEGATIVE (NEGATIVE)
--- NOTE | 2016-09-17 18:40 | PN ---
Date/Time of Note Date/Time of Note DATE: 09/17/16 TIME: 18:37 Assessment/Plan VTE Prophylaxis VTE Prophylaxis Intervention: LMWH Lines/Catheters IV Catheter Type (from Nrs): Peripheral IV Urinary Cath still in place: No Assessment/Plan Chief Complaint/Hosp Course 66 yo femlae with unclear medical history presenting with encephelopathy of unclear duration. Found to have hyponatremia, hyperkalemia, and CARLOS Hyponatremia: - FW restrict CARLOS on CKD of unclear stage: - Improved, good UOP with IVF - Continue IVF overnight Hyperkalemia is resolved Cause of encephelopathy is unlcear. Will hold all benzos, gapabentin and opaites. EEG and MRI if no improvement. NCHCT unremarkable. Need to obatin collateral. Suspect an elemtn of dementia as she is a senior living resident. Also not clear why on AEDs Problems: Subjective 24 Hr Interval Summary Free Text/Dictation No complaints Clearly remains encephelopathic Cant provide history coherently Exam/Review of Systems Vital Signs Vitals Vital Signs Date Time Temp Pulse Resp B/P Pulse Ox O2 Delivery O2 Flow Rate FiO2 09/17/16 16:29 79 09/17/16 15:12 98.4 19 109/58 99 09/17/16 03:51 2.0 09/17/16 03:50 Nasal Cannula 09/16/16 13:30 21 Intake and Output 09/16/16 09/16/16 09/17/16 15:00 23:00 07:00 Intake Total 820 ml Balance 820 ml Exam Alert Disoriented (1917, can't identify [facility] as a [facility], says Luis Arnett) RRR Comfortable appearing No edema Results Result Diagram: 09/16/16 1105 09/17/16 0611 Results 24 hrs Laboratory Tests Test 09/17/16 06:11 09/17/16 14:50 Sodium Level 132 L Potassium Level 5.0 Chloride Level 94 L Carbon Dioxide Level 23 Anion Gap 20 H Blood Urea Nitrogen 76 H Creatinine 4.04 #H Glucose Level 115 Calcium Level 8.0 L Phosphorus Level 6.7 H Magnesium Level 1.8 Iron Level 31 L Total Iron Binding Capacity 245 Percent Iron Saturation 13 L Total Bilirubin 0.0 L Direct Bilirubin 0.00 Indirect Bilirubin 0.0 Aspartate Amino Transf (AST/SGOT) 34 Alanine Aminotransferase (ALT/SGPT) 34 Alkaline Phosphatase 42 Total Protein 5.7 #L Albumin 2.9 L Globulin 2.80 Albumin/Globulin Ratio 1.03 Triglycerides Level 81 Cholesterol Level 129 LDL Cholesterol, Calculated 73 HDL Cholesterol 40 Cholesterol/HDL Ratio 3.2 Thyroid Stimulating Hormone (TSH) 2.030 Free Thyroxine Index 1.87 Thyroxine (T4) 4.6 L Triiodothyronine (T3) Uptake 40.7 H Urine Color YELLOW Urine Clarity CLOUDY A Urine pH 5.0 Urine Specific Palmer 1.010 Urine Ketones NEGATIVE Urine Nitrite NEGATIVE Urine Bilirubin NEGATIVE Urine Urobilinogen NEGATIVE Urine Leukocyte Esterase NEGATIVE Urine Microscopic RBC 0 Urine Microscopic WBC 0 Urine Amorphous Crystals FEW A Urine Hemoglobin 1+ H Urine Random Creatinine 62.54 Urine Random Sodium 44 Urine Glucose NEGATIVE Urine Total Protein 25.0 H Medications Medications Current Medications Docusate Sodium (Colace) 250 mg DAILY PO Last administered on 09/17/16 09:45; Admin Dose 250 MG; Start 09/17/16 at 09:00 Ferrous Sulfate (Ferrous Sulfate (Ec)) 325 mg DAILY PO Last administered on 09/17 09:44; Admin Dose 325 MG; Start 09/17/16 at 09:00 Topiramate (Topamax) 50 mg QHS PO Last administered on 09/16/16 23:03; Admin Dose 50 MG; Start 09/16/16 at 21:00 Multivitamins/ Minerals (Theragran-M) 1 tab DAILY PO Last administered on 09:45; Admin Dose 1 TAB; Start 09/17/16 at 09:00 Pantoprazole 40 mg 40 mg DAILY@06 PO Last administered on 09/17/16 05:19; Admin Dose 40 MG; Start 09/17/16 at 06:00 Sodium Chloride (NS) 1,000 ml @ 100 mls/hr Q10H IV Last administered on 03:13; Admin Dose 100 MLS/HR; Start 09/16/16 at 14:11 Ondansetron HCl (Zofran Inj) 4 mg Q6H PRN IV NAUSEA AND/OR VOMITING; Start 09/16 at 14:30 Acetaminophen (Tylenol Tab) 650 mg Q6H PRN PO PAIN LEVEL 1-3 OR FEVER; Start at 14:30 Acetaminophen (Tylenol Supp) 650 mg Q6H PRN [place] PAIN LEVEL 1-3 OR FEVER; Start 09/16/16 at 14:30 Acetaminophen/ Hydrocodone Bitart ([place] (5/325)) 1 tab Q6H PRN PO MODERATE PAIN LEVEL 4-6 Last administered on 09/17/16 18:27; Admin Dose 1 TAB; Start 09/16 at 14:30 Acetaminophen/ Hydrocodone Bitart ([place] (5/325)) 2 tab Q6H PRN PO SEVERE PAIN LEVEL 7-10; Start 09/16/16 at 14:30 Morphine Sulfate (morphine) 2 mg Q4H PRN IV SEVERE PAIN LEVEL 7-10; Start at 14:30 Docusate Sodium (Colace) 100 mg Q12H PRN PO CONSTIPATION; Start 09/16/16 at 14: 30 Magnesium Hydroxide (Milk Of Mag) 30 ml DAILY PRN PO CONSTIPATION; Start at 14:30 Bisacodyl (Dulcolax Supp) 10 mg DAILY PRN [place] CONSTIPATION; Start 09/16/16 at 14: 30 Miscellaneous Information Patients own medicat... BID@10,16 XX ; Start 09/16/16 at 16:26 Ceftriaxone Sodium (Rocephin) 50 ml @ 100 mls/hr Q24H IVPB Last administered on 09/17/16 12:41; Admin Dose 100 MLS/HR; Start 09/17/16 at 12:00 Diazepam (Valium) 5 mg TID PRN PO ANXIETY; Start 09/17/16 at 15:30 TAZ BRANDT MD Sep 17, 2016 18:40
--- NOTE | 2016-09-17 18:57 | RADRPT ---
Echocardiogram Report Patient Name: JOSEPH HELTON Gender: Female Date: 1950 Study Date: 17-Sep-2016 Cable Wirer: Julia Golden [facility] Location: [facility] Ref. Physician: ARIAN WASHINGTON Quality: Technically Difficult Study Procedures: Transthoracic echocardiogram with complete 2D, M-Mode, and doppler examination. Indications: Dyspnea. 2D/M Mode Doppler Measurement Value Normal Ranges Measurement Value Normal Ranges LVIDd 2D 3.6 3.5 - 5.6 cm GUILLERMO Vmax 2.5 cm2 LVIDs 2D 1.9 2.1 - 4.1 cm GUILLERMO VTI 2.5 cm2 LVPWd 2D 1.0 0.6 - 1.1 cm AV Mean William 1.4 m/sec IVSd 2D 0.9 0.6 - 1.1 cm AV Mean PG 9.6 mmHg AoR Diam 2D 2.4 2.0 - 3.7 cm AV Peak William 2.3 m/sec EDV 2D 55.0 cm3 AV Peak PG 21.1 mmHg ESV 2D 6.8 cm3 AV VTI 49.9 cm LA Dimen 2D 3.6 2.3 - 4.0 cm LVOT Mean William 1.0 m/sec LVOT Diam 2.1 cm LVOT Mean PG 5.2 mmHg LVOT Peak William 1.6 m/sec LVOT Peak PG 10.2 mmHg LVOT VTI 35.7 cm MV E Peak William 1.1 m/sec MV A Peak William 1.3 m/sec MV E/A 0.9 MV Decel Time 314 msec MV Decel Pope 4 MV E/A 0.9 TR Peak William 2.5 m/sec TR Peak PG 24.5 mmHg RVSP 33.0 mmHg Findings Left Ventricle: Normal left ventricular systolic function. Normal left ventricular cavity size. Normal left ventricular wall thickness. Ejection fraction is visually estimated at 65 %. Tissue Doppler/Mitral Doppler indices are consistent with impaired relaxation (Stage I diastolic dysfunction). Right Ventricle: Normal right ventricular size. Normal right ventricular systolic function. Left Atrium: The left atrium is normal in size. Right Atrium: The right atrium is normal in size. Mitral Valve: Normal appearance and function of the mitral valve with trace physiologic regurgitation. Aortic Valve: Aortic valve Max velocity 2.30 m/sec. Max PG 21.10 mmHg. Mean PG 9.60 mmHg. Aortic valve area 2.50 cm2. Aortic sclerosis without stenosis. Trace aortic valve regurgitation. Tricuspid Valve: Normal appearance of the tricuspid valve. Estimated peak PA systolic pressure 33 mmHg. There is trace to mild tricuspid regurgitation. Pulmonic Valve: Pulmonic valve not well visualized. Pericardium: Normal pericardium with no significant pericardial effusion. Aorta: Normal aortic root. IVC: Normal size and normal respiratory collapse consistent with normal right atrial pressure. Conclusions 1.The left ventricle is normal in size and systolic function. 2.Estimated left ventricular ejection fraction of 65%. 3.Grade 1 diastolic dysfunction. 4.Aortic valve sclerosis without stenosis. Electronically Signed By: Dariusz Ivan 17-Sep-2016 18:56:10 -0700 Patient Name: JOSEPH HELTON Study Date: 17-Sep-2016 [id number]
[2016-09-17] MEDS: TOPIRAMATE 25 MG TAB PO SCH (21:18)
[2016-09-18] VITALS (12 sets, daily range): BP systolic 105–127; BP diastolic 58–82; PULSE 69–92; RESP 15–19
[2016-09-18] MEDS: PANTOPRAZOLE (EC) 40 MG TAB PO SCH (06:00)
[2016-09-18] MEDS: SOD CHLORIDE 0.9% 1,000 ML IV SCH (06:11)
[2016-09-18] MEDS: LEVOTHYROXINE 125 MCG TAB PO SCH (07:31)
[2016-09-18 07:51] LABS: BASOPHILS % 0.3 % (0.0-2.0); EOSINOPHILS % 1.3 % (0.0-7.0); HEMATOCRIT 26.8 % (37.0-47.0); HEMOGLOBIN 8.5 g/dl (12.0-16.0); LYMPHOCYTES # 0.9 10^3/ul (0.8-2.9); LYMPHOCYTES % 27.9 % (15.0-51.0); MEAN CORPUSCULAR HEMOGLOBIN 30.5 pg (29.0-33.0); MEAN CORPUSCULAR HGB CONC 31.7 g/dl (32.0-37.0); MEAN CORPUSCULAR VOLUME 96.1 fl (82.0-101.0); MEAN PLATELET VOLUME 9.7 fl (7.4-10.4); MONOCYTE # 0.5 10^3/ul (0.3-0.9); MONOCYTES % 16.6 % (0.0-11.0); NEUTROPHIL # 1.6 10^3/ul (1.6-7.5); NEUTROPHILS % 52.6 % (39.0-77.0); PLATELET COUNT 181 10^3/UL (140-415); RED BLOOD COUNT 2.79 10^6/ul (4.20-5.40); RED CELL DISTRIBUTION WIDTH 15.7 % (11.5-14.5); WHITE BLOOD COUNT 3.1 10^3/ul (4.8-10.8)
[2016-09-18 08:23] LABS: ALBUMIN 3.2 g/dl (3.3-4.9); ALBUMIN/GLOBULIN RATIO 1.03; CALCIUM 8.7 mg/dl (8.4-10.2); CREATININE 1.66 mg/dl (0.44-1.00); POTASSIUM 4.7 mmol/L (3.5-5.1); TOTAL PROTEIN 6.3 g/dl (6.1-8.1)
[2016-09-18] MEDS: FERROUS SULFATE (EC) 325 MG TAB PO SCH (08:43)
[2016-09-18] MEDS: DOCUSATE SODIUM 250 MG CAP PO SCH (08:43)
[2016-09-18] MEDS: MULTIVITAMINS/MINERALS TAB PO SCH (08:43)
[2016-09-18 08:54] LABS: THYROID STIMULATING HORMONE 3.23 MIU/L (0.465-4.680)
--- NOTE | 2016-09-18 09:17 | PN ---
DATE: 09/18/2016 SUBJECTIVE DATA: The patient remains confused, although mildly more alert this morning. No other events noted. No hemoptysis, hematemesis, hematochezia. OBJECTIVE DATA: VITAL SIGNS: Blood pressure 119/71, respirations 19, pulse 65, temperature 98.3. HEENT: Head is normocephalic. Pupils are reactive to light. NECK: Supple. HEART: Regular rate. LUNGS: Diminished breath sounds at the base. ABDOMEN: Soft, nontender to palpation. No rebound or guarding. EXTREMITIES: Negative for clubbing, cyanosis. Positive for trace edema. DERMATOLOGIC: No rashes. MUSCULOSKELETAL: No joint effusion. NEUROLOGIC: No change in exam. The patient's medications have been reviewed. LABORATORY AND DIAGNOSTIC DATA: White count of 3.1, hemoglobin 8.5, hematocrit 26.8; platelet count is 181. Patient's BMP is pending. Urine electrolytes show a FENa of greater than 1 percent. No active sediment on urinalysis. Protein-to- creatinine ratio of 500 mg/g of creatinine. ASSESSMENT AND PLAN: 1. Nonoliguric acute kidney injury on top of chronic kidney disease, stage 3B/4. Etiology of current acute kidney injury secondary to hemodynamics, volume depletion due to diuretic therapy. The patient's urinalysis is bland, fractional excretion of sodium greater than 1 percent. Proteinuria is non glomerular. Renal ultrasound shows no obstruction. At this point continue current treatment plan. Continue IV hydration. Continue to monitor intake and output closely. Would recommend Rojas catheter placement. Otherwise continue supportive care and renally dose medications. Avoid nephrotoxins. 2. Hypokalemia. Etiology secondary to acute kidney injury, aldactone effect, and potassium chloride supplementation. The patient is currently normokalemic. Will continue to monitor. Continue hydration. 3. Hyponatremia, secondary to acute kidney injury, improved. Continue to monitor. 4. Anemia. Monitor hemoglobin and hematocrit levels. 5. Mineral bone disorder. Monitor calcium and phosphorus levels. 6. Acute encephalopathy. Etiology is multifactorial secondary to medications, toxic metabolic, possible anemia. The patient's mental status is slowly improving. Continue to monitor. 7. Sepsis, secondary to urinary tract infection. Continue current antibiotic regimen. 8. History of opiate dependence. Continue to monitor. Dictated By: Lucas Long DO /marco/kyung /Document#: [id number]
[2016-09-18] MEDS: CEFTRIAXONE 2 GM/50 ML (PMX) 50 ML IVPB SCH (13:33)
[2016-09-18 14:13] LABS: MAGNESIUM 1.9 mg/dl (1.7-2.5); PHOSPHORUS 3.5 mg/dl (2.5-4.9)
[2016-09-18 14:28] LABS: MICROALBUMIN 0.7 mg/dL
[2016-09-18] MEDS: THIAMINE 100 MG TAB PO SCH (17:20)
[2016-09-18] MEDS: FOLIC ACID 1 MG TAB PO SCH (17:20)
--- NOTE | 2016-09-18 18:57 | PN ---
Date/Time of Note Date/Time of Note DATE: 09/18/16 TIME: 18:54 Assessment/Plan VTE Prophylaxis VTE Prophylaxis Intervention: LMWH Lines/Catheters IV [facility]ter Type (from [facility]): Peripheral IV Urinary Cath still in place: No Assessment/Plan Chief Complaint/Hosp Course 66 yo femlae with alcohol use disorder presenting with acute encephelopathy/ found down in assisted living facility. Found to have hyponatremia, hyperkalemia, and CARLOS Hyponatremia: - Resolved CARLOS: - CARLOS has resolved, creatinine now likely at baseline Hyperkalemia is resolved Cause of encephelopathy is unlcear. Will hold all benzos, gapabentin and opaites. Toxic/metabolic derangements may be causative. Wernickes encephalopathy certainly possible, will treat with thiamine - EEG and MRI if no improvement. NCHCT unremarkable. Also not clear why on AEDs , hold for now Problems: Subjective 24 Hr Interval Summary Free Text/Dictation More alert today, yet still seem alterted Unable to provide coherent histoyr Collateral obtained from [place]. State the patient is a very heavy daily drinker. Recently was started on opiates/benzos by PMD for anxiety and that is when acute presentation began Exam/Review of Systems Vital Signs Vitals Vital Signs Date Time Temp Pulse Resp B/P Pulse Ox O2 Delivery O2 Flow Rate FiO2 09/18/16 16:19 86 09/18/16 15:32 98.3 18 124/82 96 09/17/16 03:51 2.0 09/17/16 03:50 Nasal Cannula 09/16/16 13:30 21 Intake and Output 09/17/16 09/17/16 09/18/16 15:00 23:00 07:00 Intake Total 500 ml 1150 ml Balance 500 ml 1150 ml Exam Alert, oriented to "[place]", thinks it's 1909 No tremors/fasciculations or other signs of w/d Obese No edema Comfortable appearing Results Result Diagram: 09/18/16 0720 09/18/16 0720 Results 24 hrs Laboratory Tests Test 09/18/16 07:20 White Blood Count 3.1 #L Red Blood Count 2.79 L Hemoglobin 8.5 L Hematocrit 26.8 L Mean Corpuscular Volume 96.1 Mean Corpuscular Hemoglobin 30.5 Mean Corpuscular Hemoglobin Concent 31.7 L Red Cell Distribution Width 15.7 H Platelet Count 181 # Mean Platelet Volume 9.7 Neutrophils % 52.6 Lymphocytes % 27.9 Monocytes % 16.6 H Eosinophils % 1.3 Basophils % 0.3 Nucleated Red Blood Cells % 0.0 Neutrophils # 1.6 Lymphocytes # 0.9 Monocytes # 0.5 Eosinophils # 0.0 Basophils # 0.0 Nucleated Red Blood Cells # 0.0 Sodium Level 140 Potassium Level 4.7 Chloride Level 101 Carbon Dioxide Level 27 Anion Gap 17 H Blood Urea Nitrogen 56 H Creatinine 1.66 #H Glucose Level 106 Calcium Level 8.7 Phosphorus Level 3.5 # Magnesium Level 1.9 Total Bilirubin 0.0 L Direct Bilirubin 0.00 Indirect Bilirubin 0.0 Aspartate Amino Transf (AST/SGOT) 31 Alanine Aminotransferase (ALT/SGPT) 37 Alkaline Phosphatase 49 Total Protein 6.3 Albumin 3.2 L Globulin 3.10 Albumin/Globulin Ratio 1.03 Thyroid Stimulating Hormone (TSH) 3.230 Medications Medications Current Medications Docusate Sodium (Colace) 250 mg DAILY PO Last administered on 09/18/16 08:43; Admin Dose 250 MG; Start 09/17/16 at 09:00 Ferrous Sulfate (Ferrous Sulfate (Ec)) 325 mg DAILY PO Last administered on 09/18 08:43; Admin Dose 325 MG; Start 09/17/16 at 09:00 Multivitamins/ Minerals (Theragran-M) 1 tab DAILY PO Last administered on 08:43; Admin Dose 1 TAB; Start 09/17/16 at 09:00 Ondansetron HCl (Zofran Inj) 4 mg Q6H PRN IV NAUSEA AND/OR VOMITING; Start 09/16 at 14:30 Acetaminophen (Tylenol Tab) 650 mg Q6H PRN PO PAIN LEVEL 1-3 OR FEVER; Start at 14:30 Acetaminophen (Tylenol Supp) 650 mg Q6H PRN [place] PAIN LEVEL 1-3 OR FEVER; Start 09/16/16 at 14:30 Docusate Sodium (Colace) 100 mg Q12H PRN PO CONSTIPATION; Start 09/16/16 at 14: 30 Magnesium Hydroxide (Milk Of Mag) 30 ml DAILY PRN PO CONSTIPATION; Start at 14:30 Bisacodyl (Dulcolax Supp) 10 mg DAILY PRN [place] CONSTIPATION; Start 09/16/16 at 14: 30 Miscellaneous Information Patients own medicat... BID@10,16 XX ; Start 09/16/16 at 16:26 Ceftriaxone Sodium (Rocephin) 50 ml @ 100 mls/hr Q24H IVPB Last administered on 09/18/16 13:33; Admin Dose 100 MLS/HR; Start 09/17/16 at 12:00 Diazepam (Valium) 5 mg TID PRN PO ANXIETY; Start 09/17/16 at 15:30 Thiamine HCl (Vitamin B1) 500 mg BID PO Last administered on 09/18/16 17:20; Admin Dose 500 MG; Start 09/18/16 at 16:01 Folic Acid 1 mg 1 mg DAILY PO Last administered on 09/18/16 17:20; Admin Dose 1 MG; Start 09/18/16 at 16:00 Multivitamins/ Thiamine HCl/ Folic Acid/Sodium Chloride (Mvi Adult/ Vitamin B1/ Folic Acid/NS) 1,011.2 ml @ 125 mls/ hr DAILY@09 IVPB ; Start 09/19/16 at 09:00 TAZ BRANDT MD Sep 18, 2016 18:57
[2016-09-19] VITALS (9 sets, daily range): BP systolic 123–182; BP diastolic 71–99; PULSE 76–94; RESP 16–20
[2016-09-19] MEDS: ACETAMINOPHEN 325 MG TAB PO PRN ×2 (01:46→08:25)
[2016-09-19] MEDS: DIAZEPAM 5 MG TAB PO PRN (01:50)
[2016-09-19] MEDS: ALBUTEROL/IPRATROPIUM (NEB) 3 ML AMP HHN PRN (03:18)
[2016-09-19] MEDS: ONDANSETRON 4 MG INJ IV PRN ×2 (06:25→14:48)
[2016-09-19 08:01] LABS: ABNORMAL IP MESSAGE 1; BASOPHILS % 0.5 % (0.0-2.0); HEMATOCRIT 28.8 % (37.0-47.0); HEMOGLOBIN 9.3 g/dl (12.0-16.0); LYMPHOCYTES # 0.3 10^3/ul (0.8-2.9); LYMPHOCYTES % 7.6 % (15.0-51.0); MEAN CORPUSCULAR HEMOGLOBIN 31.2 pg (29.0-33.0); MEAN CORPUSCULAR HGB CONC 32.3 g/dl (32.0-37.0); MEAN CORPUSCULAR VOLUME 96.6 fl (82.0-101.0); MEAN PLATELET VOLUME 9.2 fl (7.4-10.4); MONOCYTE # 0.4 10^3/ul (0.3-0.9); MONOCYTES % 8.6 % (0.0-11.0); NEUTROPHIL # 3.4 10^3/ul (1.6-7.5); NEUTROPHILS % 81.9 % (39.0-77.0); PLATELET COUNT 176 10^3/UL (140-415); RED BLOOD COUNT 2.98 10^6/ul (4.20-5.40); RED CELL DISTRIBUTION WIDTH 15.1 % (11.5-14.5); RETICULOCYTE COUNT % 2.8 % (0.5-1.5); WHITE BLOOD COUNT 4.2 10^3/ul (4.8-10.8)
[2016-09-19 08:05] LABS: POSITIVE DIFF @See below
[2016-09-19] MEDS: DOCUSATE SODIUM 250 MG CAP PO SCH (08:18)
[2016-09-19] MEDS: LEVOTHYROXINE 125 MCG TAB PO SCH (08:18)
[2016-09-19] MEDS: FOLIC ACID 1 MG TAB PO SCH (08:18)
[2016-09-19] MEDS: MULTIVITAMINS 10 ML, THIAMINE 100 MG, FOLIC ACID 1 MG in SOD CHLORIDE 0.9% 1,000 ML IVPB SCH (08:18)
[2016-09-19] MEDS: THIAMINE 100 MG TAB PO SCH ×2 (08:19→21:12)
[2016-09-19] MEDS: MULTIVITAMINS/MINERALS TAB PO SCH (08:19)
[2016-09-19] MEDS: FERROUS SULFATE (EC) 325 MG TAB PO SCH (08:21)
[2016-09-19 08:29] LABS: ALBUMIN 3.5 g/dl (3.3-4.9); ALBUMIN/GLOBULIN RATIO 1.02; CALCIUM 8.9 mg/dl (8.4-10.2); CREATININE 1.08 mg/dl (0.44-1.00); POTASSIUM 3.9 mmol/L (3.5-5.1); TOTAL PROTEIN 6.9 g/dl (6.1-8.1)
--- NOTE | 2016-09-19 08:37 | PN ---
DATE: 09/19/2016 SUBJECTIVE DATA: The patient is stable. No acute events overnight. No fevers, chills, nausea, vomiting. No shortness of breath. OBJECTIVE DATA: VITAL SIGNS: Blood pressure of 170/99, respirations 20, pulse 87, temperature 98.0. I's and O's reviewed. HEENT: Head is normocephalic. NECK: Supple. HEART: Regular rate. LUNGS: Show diminished breath sounds at the base. ABDOMEN: Soft, nontender to palpation. No rebound or guarding. EXTREMITIES: Negative for clubbing, cyanosis. Trace edema. DERMATOLOGIC: Clean. No rashes. MUSCULOSKELETAL: No joint effusion. NEUROLOGIC: No change in exam. MEDICATIONS: Reviewed. LABORATORY AND DIAGNOSTIC DATA: Reviewed. Currently pending. ASSESSMENT AND PLAN: 1. Nonoliguric acute kidney injury on top of chronic kidney disease stage 3B. The etiology of acute kidney injury is secondary to hemodynamics, volume depletion. The patient's renal function has significantly improved with intravenous fluids. Agree with discontinuing intravenous fluids at this time. Plan is to follow up renal panel. Would otherwise continue supportive care. Renally dose all meds. Avoid nephrotoxins. 2. Hyperkalemia. Etiology secondary to acute kidney injury, Aldactone effect, improved. Continue to monitor. 3. Hyponatremia secondary to acute kidney injury, improved. 4. Anemia. Continue to monitor H and H levels. 5. Mineral bone disorder. Continue to monitor calcium and phosphorus levels. 6. Encephalopathy. Etiology is multifactorial. The patient's mental status is slowly improving. Continue to monitor. 7. Sepsis secondary to urinary tract infection. Continue current antibiotic regimen. 8. History of opiate dependence. Dictated By: Lucas Long DO /marco/hetal /Document#: [id number]
[2016-09-19 09:36] LABS: MAGNESIUM 1.7 mg/dl (1.7-2.5)
[2016-09-19] MEDS ORDERED: HYDROCODONE/APAP (5/325) TAB PO ONE (10:00)
[2016-09-19] MEDS: CEFTRIAXONE 2 GM/50 ML (PMX) 50 ML IVPB SCH (13:14)
--- NOTE | 2016-09-19 13:53 | PN ---
Date/Time of Note Date/Time of Note DATE: 09/19/16 TIME: 13:50 Assessment/Plan VTE Prophylaxis VTE Prophylaxis Intervention: LMWH Lines/Catheters IV Catheter Type (from [facility]): Peripheral IV Urinary Cath still in place: No Assessment/Plan Chief Complaint/Hosp Course 66 yo femlae with alcohol use disorder presenting with acute encephelopathy/ found down in assisted living facility. Found to have hyponatremia, hyperkalemia, and CARLOS Hyponatremia: - Resolved CARLOS: - CARLOS has resolved, creatinine now likely at baseline Hyperkalemia is resolved Alcohol use disorder by collateral from assisted living facility Cause of encephelopathy is unlcear - Continue to hold all benzos, gapabentin and opaites. - Toxic/metabolic derangements may be causative. - Wernickes encephalopathy certainly possible, will treat with thiamine - EEG and MRI if no improvement. - NCHCT unremarkable. - Also not clear why on AEDs, hold for now Dispo: to [facility] when stable PT/OT Problems: Subjective 24 Hr Interval Summary Free Text/Dictation Electrlyote derangements have normalized as well as renal function Remains cognitively impaired Today complains of mild abdominal pain, has had a couple episdes of diarrhea Exam/Review of Systems Vital Signs Vitals Vital Signs Date Time Temp Pulse Resp B/P Pulse Ox O2 Delivery O2 Flow Rate FiO2 09/19/16 12:26 76 09/19/16 11:27 2.0 09/19/16 10:57 98.2 19 182/86 100 09/19/16 03:18 21 09/17/16 03:50 Nasal Cannula Intake and Output 09/18/16 09/18/16 09/19/16 15:00 23:00 07:00 Intake Total 850 ml 800 ml Output Total 500 ml 850 ml Balance 350 ml -50 ml Exam WEll appearing female, resting comfortably in NAD Alert, disoriented. Thinks it is 1910. Can't identify she is in a hosptial. Knows Luis Arnett RRR Abdomen obese, soft, mildly tender in epigastrium, no rebound or guarding No edema Labs reviewed TTE wnl Results Result Diagram: 09/19/16 0742 09/19/16 0742 Results 24 hrs Laboratory Tests Test 09/19/16 07:42 White Blood Count 4.2 #L Red Blood Count 2.98 L Hemoglobin 9.3 L Hematocrit 28.8 L Mean Corpuscular Volume 96.6 Mean Corpuscular Hemoglobin 31.2 Mean Corpuscular Hemoglobin Concent 32.3 Red Cell Distribution Width 15.1 H Platelet Count 176 Mean Platelet Volume 9.2 Neutrophils % 81.9 H Lymphocytes % 7.6 L Monocytes % 8.6 Eosinophils % 0.0 Basophils % 0.5 Nucleated Red Blood Cells % 0.0 Neutrophils # 3.4 Lymphocytes # 0.3 L Monocytes # 0.4 Eosinophils # 0.0 Basophils # 0.0 Nucleated Red Blood Cells # 0.0 Absolute Reticulocyte Count 0.083 Percent Reticulocyte Count 2.8 H Sodium Level 139 Potassium Level 3.9 Chloride Level 96 L Carbon Dioxide Level 29 Anion Gap 18 H Blood Urea Nitrogen 32 #H Creatinine 1.08 H Glucose Level 171 Calcium Level 8.9 Phosphorus Level 2.0 #L Magnesium Level 1.7 Ferritin 115.0 Total Bilirubin 0.0 L Direct Bilirubin 0.00 Indirect Bilirubin 0.0 Aspartate Amino Transf (AST/SGOT) 32 Alanine Aminotransferase (ALT/SGPT) 41 Alkaline Phosphatase 53 Total Protein 6.9 Albumin 3.5 Globulin 3.40 H Albumin/Globulin Ratio 1.02 HIV (1&2) Antibody NEGATIVE Medications Medications Current Medications Ferrous Sulfate (Ferrous Sulfate (Ec)) 325 mg DAILY PO Last administered on 09/19 08:21; Admin Dose 325 MG; Start 09/17/16 at 09:00 Multivitamins/ Minerals (Theragran-M) 1 tab DAILY PO Last administered on 08:19; Admin Dose 1 TAB; Start 09/17/16 at 09:00 Ondansetron HCl (Zofran Inj) 4 mg Q6H PRN IV NAUSEA AND/OR VOMITING Last administered on 09/19/16 06:25; Admin Dose 4 MG; Start 09/16/16 at 14:30 Acetaminophen (Tylenol Tab) 650 mg Q6H PRN PO PAIN LEVEL 1-3 OR FEVER Last administered on 09/19/16 08:25; Admin Dose 650 MG; Start 09/16/16 at 14:30 Acetaminophen (Tylenol Supp) 650 mg Q6H PRN [place] PAIN LEVEL 1-3 OR FEVER; Start 09/16/16 at 14:30 Miscellaneous Information Patients own medicat... BID@ XX ; Start 09/16/16 at 16:26 Ceftriaxone Sodium (Rocephin) 50 ml @ 100 mls/hr Q24H IVPB Last administered on 09/19/16 13:14; Admin Dose 100 MLS/HR; Start 09/17/16 at 12:00 Diazepam (Valium) 5 mg TID PRN PO ANXIETY Last administered on 09/19/16 01:50; Admin Dose 5 MG; Start 09/17/16 at 15:30 Thiamine HCl (Vitamin B1) 500 mg BID PO Last administered on 09/19/16 08:19; Admin Dose 500 MG; Start 09/18/16 at 16:01 Folic Acid 1 mg 1 mg DAILY PO Last administered on 09/19/16 08:18; Admin Dose 1 MG; Start 09/18/16 at 16:00 Multivitamins/ Thiamine HCl/ Folic Acid/Sodium Chloride (Mvi Adult/ Vitamin B1/ Folic Acid/NS) 1,011.2 ml @ 125 mls/ hr DAILY@09 IVPB Last administered on 09/19 08:18; Admin Dose 125 MLS/HR; Start 09/19/16 at 09:00 TAZ BRANDT MD Sep 19, 2016 13:52
[2016-09-19] MEDS ORDERED: BARIUM SULF 2% 450 ML BTL (BERRY SMOOTHIE) PO ONE ×2 (16:00→18:30)
[2016-09-19] MEDS: HYDROCODONE/APAP (5/325) TAB PO PRN ×2 (16:19→21:12)
[2016-09-20 02:00] VITALS: BP 179/88; RESP 20
[2016-09-20 02:30] VITALS: BP 142/79; PULSE 72; RESP 18
[2016-09-20] MEDS: DIAZEPAM 5 MG TAB PO PRN (03:08)
[2016-09-20 06:37] LABS: BASOPHILS % 0.2 % (0.0-2.0); HEMOGLOBIN 9.7 g/dl (12.0-16.0); LYMPHOCYTES # 0.6 10^3/ul (0.8-2.9); LYMPHOCYTES % 5.4 % (15.0-51.0); MEAN CORPUSCULAR HEMOGLOBIN 29.9 pg (29.0-33.0); MEAN CORPUSCULAR HGB CONC 31.3 g/dl (32.0-37.0); MEAN CORPUSCULAR VOLUME 95.7 fl (82.0-101.0); MEAN PLATELET VOLUME 9.4 fl (7.4-10.4); MONOCYTE # 1.1 10^3/ul (0.3-0.9); NEUTROPHIL # 9.9 10^3/ul (1.6-7.5); NEUTROPHILS % 84.3 % (39.0-77.0); PLATELET COUNT 188 10^3/UL (140-415); RED BLOOD COUNT 3.24 10^6/ul (4.20-5.40); RED CELL DISTRIBUTION WIDTH 15.1 % (11.5-14.5); WHITE BLOOD COUNT 11.8 10^3/ul (4.8-10.8)
[2016-09-20 06:54] LABS: CALCIUM 8.7 mg/dl (8.4-10.2); CREATININE 0.95 mg/dl (0.44-1.00); MAGNESIUM 1.6 mg/dl (1.7-2.5); PHOSPHORUS 2.5 mg/dl (2.5-4.9); POTASSIUM 4.1 mmol/L (3.5-5.1)
[2016-09-20] MEDS: LEVOTHYROXINE 125 MCG TAB PO SCH (07:00)
[2016-09-20 07:58] VITALS: BP 149/78; RESP 20
--- NOTE | 2016-09-20 08:48 | RADRPT ---
PROCEDURE: CT Abdomen and Pelvis without contrast. CLINICAL INDICATION: Abdominal pain sepsis, UTI chronic kidney disease. TECHNIQUE: CT scan of the abdomen and pelvis without contrast was performed on a multidetector hig h-resolution CT scanner. The patient was scanned without intravenous contrast. Coronal and sagittal reformatted images were obtained from the axial source images. Images were reviewed on a high-resol [employer] PACS workstation. The total exam CTDI equals 23.38 mGy and the total exam DLP equals 1258.18 m Gy-cm. One or more of the following dose reduction techniques were used: Automated exposure control. Adjustment of the mA and/or kV according to patient size. Use of iterative reconstruction technique. COMPARISON: None FINDINGS: CT abdomen: The lung bases are remarkable for bibasilar atelectasis. The heart size is normal, without pericard ial thickening or effusion. The gallbladder is markedly distended with abnormal wall thickening and mild pericholecystic inflamm atory changes suggesting acute cholecystitis. Multiple sub centimeter layering gallstones in the ne ck of the gallbladder. There is no dilatation of the biliary tree. The liver is normal in size and density without focal mass or intrahepatic biliary dilatation. There is mild splenomegaly. The stomach is partially collapsed, but is grossly unremarkable. The pancre as as visualized is normal. The adrenal glands are symmetric and normal. The kidneys are symmetric ally unremarkable as well. The kidneys are borderline small in size measuring 9 cm in length. There is a fat-containing epigastric hernia. There is a fat-containing small periumbilical hernia. The aorta is of normal caliber. Aortic vascular calcifications are present. There is no retroperit morris lymphadenopathy. The katja hepatis region is clear. The bowel and mesentery, as visualized, are equally unremarkable. CT pelvis: The small bowel loops situated within the pelvis are unremarkable. The pelvic organs are normal. T he pelvic sidewalls and inguinal regions are clear. The sigmoid colon and rectum are remarkable for a few diverticula in the sigmoid colon without evidence of acute diverticulitis. No mass, lymphade nopathy, or free fluid is seen. No acute inflammation is seen. The surrounding osseous structures are remarkable for degenerative spondylosis of the spine. No osteolytic or osteoblastic lesion is d etected. IMPRESSION: 1. Markedly distended gallbladder containing multiple sub centimeter gallstones with thickened gall bladder wall and surrounding inflammatory changes in keeping with acute cholecystitis. No biliary d uctal dilatation. 2. Mild splenomegaly. 3. Few sigmoid diverticula without evidence of acute diverticulitis. 4. Epigastric and periumbilical fat-containing ventral abdominal hernias. 5. Scattered aortoiliac atherosclerosis. 6. Borderline small size bilateral kidneys with no hydronephrosis. RPTAT: BB .Lamont King MD, MD Date Time Electronically viewed and signed by .Lamont King MD, on 09/20/2016 08:48 .O/
[2016-09-20 09:36] LABS: ALBUMIN 3.4 g/dl (3.3-4.9); BILIRUBIN,INDIRECT 0.2 mg/dl (0-1.1); BILIRUBIN,TOTAL 0.2 mg/dl (0.2-1.3); TOTAL PROTEIN 6.6 g/dl (6.1-8.1)
[2016-09-20] MEDS: THIAMINE 100 MG TAB PO SCH ×2 (09:47→21:41)
[2016-09-20] MEDS: MULTIVITAMINS/MINERALS TAB PO SCH (09:47)
[2016-09-20] MEDS: FOLIC ACID 1 MG TAB PO SCH (09:47)
[2016-09-20] MEDS: MULTIVITAMINS 10 ML, THIAMINE 100 MG, FOLIC ACID 1 MG in SOD CHLORIDE 0.9% 1,000 ML IVPB SCH (09:47)
--- NOTE | 2016-09-20 10:50 | PN ---
DATE: 09/20/2016 SUBJECTIVE DATA: The patient is stable. No events overnight. No fevers, chills, nausea, vomiting. OBJECTIVE DATA: VITAL SIGNS: Blood pressure is 149/78, respirations 20, pulse 67, temperature 98.8. HEENT: Head is normocephalic. NECK: Supple. HEART: Regular rate. LUNGS: Diminished breath sounds at the base. ABDOMEN: Patient has tenderness to palpation in right upper quadrant. No rebound. EXTREMITIES: Negative for clubbing or cyanosis. No edema. DERMATOLOGIC: Clean. No rashes. MUSCULOSKELETAL: No joint effusion. NEUROLOGIC: No change in exam. MEDICATIONS: The patient's medications are reviewed. LABORATORY AND DIAGNOSTIC DATA: Sodium 139, potassium 4.1, BUN 24, creatinine 0.94. Magnesium 1.6. White count 9.8, hemoglobin 9.7, hematocrit 31.0, platelet count is 188. ASSESSMENT AND PLAN: 1. Nonoliguric acute kidney injury on top of chronic kidney disease with baseline creatinine unknown. The patient's etiology of acute kidney injury is secondary to hemodynamics following depletion. The patient has shown excellent renal recovery. At this point, continue current treatment, supportive care, renally dose all medications. 2. Hypokalemia, resolved. 3. Hyponatremia secondary to acute kidney injury, resolved. 4. Anemia. Monitor hemoglobin and hematocrit levels. 5. Hypomagnesemia. Replete with magnesium sulfate. 6. Mineral bone disorder. Continue to monitor calcium and phosphorus levels. 7. , etiology multifactorial, slowly improving. Continue to monitor. 8. Sepsis secondary to urinary tract infection. Continue current antibiotic regimen. 9. History of opiate dependence. 10. Lower extremity edema. Etiology is likely venous insufficiency. Continue to monitor. May consider resuming intermittent diuretic therapy as needed. 11. Abdominal pain. The patient is status post CT scan of abdomen and pelvis, which shows findings of possible acute cholecystitis. The patient remains on antibiotic therapy. Would recommend possible general surgery evaluation. Continue current treatment plan. Dictated By: Lucas Long DO /marco/tobi /Document#: [id number]
[2016-09-20] MEDS: PIPER-TAZO 3.375 GM IV (PMX) 100 ML IVPB SCH ×3 (11:49→23:33)
[2016-09-20 15:33] VITALS: BP 131/64; RESP 18
--- NOTE | 2016-09-20 15:54 | PN ---
Date/Time of Note Date/Time of Note DATE: 09/20/16 TIME: 15:50 Assessment/Plan VTE Prophylaxis VTE Prophylaxis Intervention: LMWH Lines/Catheters IV Catheter Type (from [facility]rs): [place] Urinary Cath still in place: No Assessment/Plan Chief Complaint/Hosp Course 66 yo femlae with alcohol use disorder presenting with acute encephelopathy/ found down in assisted living facility. Found to have hyponatremia, hyperkalemia, and CARLOS Acute cholecystitis: - Developed on ceftrixaone, will broaden to zosyn - Dr Landon from gen surgery has been consulted Hyponatremia: - Resolved CARLOS: - CARLOS has resolved, creatinine now likely at baseline Hyperkalemia is resolved Alcohol use disorder by collateral from assisted living facility - thiamine, folate, MVI Cause of encephelopathy is unlcear - Continue to hold all benzos, gapabentin and opaites. - Toxic/metabolic derangements may be causative. - Wernickes encephalopathy certainly possible, will treat with thiamine - EEG and MRI if no improvement. - NCHCT unremarkable. - Also not clear why on AEDs, hold for now Dispo: to [facility] when stable PT/OT Problems: Subjective 24 Hr Interval Summary Free Text/Dictation Renal function recovered to normal, no evidence of CKD now Patient remains encephelopathic Still mild abd pain, CT showning acute cholecystitis, gen surg consulted Exam/Review of Systems Vital Signs Vitals Vital Signs Date Time Temp Pulse Resp B/P Pulse Ox O2 Delivery O2 Flow Rate FiO2 09/20/16 15:33 98.1 64 18 131/64 97 09/19/16 11:27 2.0 09/19/16 03:18 21 09/17/16 03:50 Nasal Cannula Intake and Output 09/19/16 09/19/16 09/20/16 15:00 23:00 07:00 Intake Total 400 ml 690 ml 1311.2 ml Balance 400 ml 690 ml 1311.2 ml Exam Alert, disoriented, appears delirious RRR Breathing unlabored Abdomen soft, minimal tenderness in epigasrium, neg murphys, no rebound/guarding No edema Labs, CT reviewed Results Result Diagram: 09/20/16 0544 09/20/16 0542 Results 24 hrs Laboratory Tests Test 09/20/16 05:42 09/20/16 05:44 Sodium Level 139 Potassium Level 4.1 Chloride Level 96 L Carbon Dioxide Level 31 Anion Gap 16 Blood Urea Nitrogen 24 H Creatinine 0.95 Glucose Level 151 Calcium Level 8.7 Phosphorus Level 2.5 Magnesium Level 1.6 L Total Bilirubin 0.2 Direct Bilirubin 0.00 Indirect Bilirubin 0.2 Aspartate Amino Transf (AST/SGOT) 39 Alanine Aminotransferase (ALT/SGPT) 37 Alkaline Phosphatase 49 Total Protein 6.6 Albumin 3.4 White Blood Count 11.8 #H Red Blood Count 3.24 L Hemoglobin 9.7 L Hematocrit 31.0 L Mean Corpuscular Volume 95.7 Mean Corpuscular Hemoglobin 29.9 Mean Corpuscular Hemoglobin Concent 31.3 L Red Cell Distribution Width 15.1 H Platelet Count 188 Mean Platelet Volume 9.4 Neutrophils % 84.3 H Lymphocytes % 5.4 L Monocytes % 9.0 Eosinophils % 0.0 Basophils % 0.2 Nucleated Red Blood Cells % 0.0 Neutrophils # 9.9 H Lymphocytes # 0.6 L Monocytes # 1.1 H Eosinophils # 0.0 Basophils # 0.0 Nucleated Red Blood Cells # 0.0 Medications Medications Current Medications Multivitamins/ Minerals (Theragran-M) 1 tab DAILY PO Last administered on 09:47; Admin Dose 1 TAB; Start 09/17/16 at 09:00 Acetaminophen (Tylenol Tab) 650 mg Q6H PRN PO PAIN LEVEL 1-3 OR FEVER Last administered on 09/19/16 08:25; Admin Dose 650 MG; Start 09/16/16 at 14:30 Miscellaneous Information Patients own medicat... BID@10,16 XX ; Start 09/16/16 at 16:26 Thiamine HCl (Vitamin B1) 500 mg BID PO Last administered on 09/20/16 09:47; Admin Dose 500 MG; Start 09/18/16 at 16:01 Folic Acid 1 mg 1 mg DAILY PO Last administered on 09/20/16 09:47; Admin Dose 1 MG; Start 09/18/16 at 16:00 Multivitamins/ Thiamine HCl/ Folic Acid/Sodium Chloride (Mvi Adult/ Vitamin B1/ Folic Acid/NS) 1,011.2 ml @ 125 mls/ hr DAILY@09 IVPB Last administered on 09:47; Admin Dose 125 MLS/HR; Start 09/19/16 at 09:00 Acetaminophen/ Hydrocodone Bitart 1 tab 1 tab Q3H PRN PO PAIN Last administered on 09/19/16 21:12; Admin Dose 1 TAB; Start 09/19/16 at 16:00 Piperacillin Sod/ Tazobactam Sod (Zosyn 3.375gm/ 100 ml (Pmx)) 100 ml @ 200 mls /hr Q6 IVPB Last administered on 09/20/16 11:49; Admin Dose 200 MLS/HR; Start 09/20/16 at 12:00 TAZ BRANDT MD Sep 20, 2016 15:54
--- NOTE | 2016-09-20 18:16 | CONS ---
Date/Time of Note Date/Time of Note DATE: 09/20/16 TIME: 18:03 Assessment/Plan Assessment/Plan Chief Complaint/Hosp Course 66-year-old morbidly obese female with multiple medical problems and acute cholecystitis * Obviously the patient is a poor surgical candidate given her multiple baseline comorbidities as well as acute issues that she has going on. * Would prefer to treat her conservatively with bowel rest, broad-spectrum intravenous antibiotics and pain control as needed. * If symptoms do not improve we may need to consider percutaneous CT-guided cholecystostomy. Further recommendations will made based on patient's clinical course Problems: Consultation Date/Type/Reason Admit Date/Time Date of Consultation: Sep 20, 2016 Type of Consultation: GENERAL surgery Reason for Consultation Abdominal pain Hx of Present Illness The patient is a a 66-year-old female with a past medical history of chronic kidney disease, chronic lower back pain, hypothyroidism, hypertension, who presented to [facility] with altered mental status. The patient lives at an assisted living facility and was found to be on the floor in the apartment complex. The patient apparently has chronic dependence on narcotics for pain control. On arrival to the emergency room she was found to be in acute renal failure with hyperkalemia. She has since been admitted and her condition has stabilized somewhat. Starting yesterday she began complaining of epigastric and right upper quadrant abdominal pain. CT scan of the abdomen and pelvis which was done showed a distended gallbladder with stones and pericholecystic inflammatory changes. Surgical consultation has been requested. My information is all from chart review as the patient is unable to answer any of my questions due to confusion. She cannot remember her age and thinks it is the year 1900s. I am unable to get any information out of her. She does, however, complain of right upper quadrant abdominal pain. She has a large midline scar from prior surgery the details of which are unclear at this time. She has been afebrile. White count today was 11,000. LFTs are normal. Unable to be obtained secondary to confusion and altered mental state. Psychological: other Past Medical History As in HPI Past Surgical History There is a large midline abdominal scar, however, surgical history is unclear as the patient is unable to answer questions. Social History Alcohol Use: none Smoking Status: Former smoker Drug Use: none Exam/Review of Systems Vital Signs Vitals Vital Signs Date Time Temp Pulse Resp B/P Pulse Ox O2 Delivery O2 Flow Rate FiO2 09/20/16 15:33 98.1 64 18 131/64 97 09/19/16 11:27 2.0 09/19/16 03:18 21 09/17/16 03:50 Nasal Cannula Intake and Output 09/19/16 09/19/16 09/20/16 15:00 23:00 07:00 Intake Total 400 ml 690 ml 1311.2 ml Balance 400 ml 690 ml 1311.2 ml Exam GENERAL: Morbidly obese, awake, but not oriented. No acute distress. SKIN: No jaundice. HEENT: PERRLA, EOMI, No Scleral Icterus NECK: Supple without JVD CARDIOVASCULAR: S1S2, regular rate and rhythm. No murmurs appreciated. RESPIRATORY: Decreased breath sounds bilateral bases. ABDOMEN: Morbidly obese, soft, bowel sounds present, there is right upper quadrant tenderness to palpation. There is no evidence of rebound or guarding or diffuse peritonitis. EXTREMITIES: Free range of motion x 4. No cyanosis, edema, or clubbing. NEUROLOGIC: Cranial nerves II-XII are intact. Sensation is intact grossly. Results Result Diagram: 09/20/16 0544 09/20/16 0542 Results 24 hrs Laboratory Tests Test 09/20/16 05:42 09/20/16 05:44 Sodium Level 139 Potassium Level 4.1 Chloride Level 96 L Carbon Dioxide Level 31 Anion Gap 16 Blood Urea Nitrogen 24 H Creatinine 0.95 Glucose Level 151 Calcium Level 8.7 Phosphorus Level 2.5 Magnesium Level 1.6 L Total Bilirubin 0.2 Direct Bilirubin 0.00 Indirect Bilirubin 0.2 Aspartate Amino Transf (AST/SGOT) 39 Alanine Aminotransferase (ALT/SGPT) 37 Alkaline Phosphatase 49 Total Protein 6.6 Albumin 3.4 White Blood Count 11.8 #H Red Blood Count 3.24 L Hemoglobin 9.7 L Hematocrit 31.0 L Mean Corpuscular Volume 95.7 Mean Corpuscular Hemoglobin 29.9 Mean Corpuscular Hemoglobin Concent 31.3 L Red Cell Distribution Width 15.1 H Platelet Count 188 Mean Platelet Volume 9.4 Neutrophils % 84.3 H Lymphocytes % 5.4 L Monocytes % 9.0 Eosinophils % 0.0 Basophils % 0.2 Nucleated Red Blood Cells % 0.0 Neutrophils # 9.9 H Lymphocytes # 0.6 L Monocytes # 1.1 H Eosinophils # 0.0 Basophils # 0.0 Nucleated Red Blood Cells # 0.0 Medications Medications Current Medications Multivitamins/ Minerals (Theragran-M) 1 tab DAILY PO Last administered on 09:47; Admin Dose 1 TAB; Start 09/17/16 at 09:00 Acetaminophen (Tylenol Tab) 650 mg Q6H PRN PO PAIN LEVEL 1-3 OR FEVER Last administered on 09/19/16 08:25; Admin Dose 650 MG; Start 09/16/16 at 14:30 Miscellaneous Information Patients own medicat... BID@10,16 XX ; Start 09/16/16 at 16:26 Thiamine HCl (Vitamin B1) 500 mg BID PO Last administered on 09/20/16 09:47; Admin Dose 500 MG; Start 09/18/16 at 16:01 Folic Acid 1 mg 1 mg DAILY PO Last administered on 09/20/16 09:47; Admin Dose 1 MG; Start 09/18/16 at 16:00 Multivitamins/ Thiamine HCl/ Folic Acid/Sodium Chloride (Mvi Adult/ Vitamin B1/ Folic Acid/NS) 1,011.2 ml @ 125 mls/ hr DAILY@09 IVPB Last administered on 09:47; Admin Dose 125 MLS/HR; Start 09/19/16 at 09:00 Acetaminophen/ Hydrocodone Bitart 1 tab 1 tab Q3H PRN PO PAIN Last administered on 09/19/16 21:12; Admin Dose 1 TAB; Start 09/19/16 at 16:00 Piperacillin Sod/ Tazobactam Sod (Zosyn 3.375gm/ 100 ml (Pmx)) 100 ml @ 200 mls /hr Q6 IVPB Last administered on 09/20/16 17:27; Admin Dose 200 MLS/HR; Start 09/20/16 at 12:00 Procedures Procedures PROCEDURE: CT Abdomen and Pelvis without contrast. CLINICAL INDICATION: Abdominal pain sepsis, UTI chronic kidney disease. TECHNIQUE: CT scan of the abdomen and pelvis without contrast was performed on a multidetector high-resolution CT scanner. The patient was scanned without intravenous contrast. Coronal and sagittal reformatted images were obtained from the axial source images. Images were reviewed on a high-resolution PACS workstation. The total exam CTDI equals 23.38 mGy and the total exam DLP equals 1258.18 mGy-cm. One or more of the following dose reduction techniques were used: Automated exposure control. Adjustment of the mA and/or kV according to patient size. Use of iterative reconstruction technique. COMPARISON: None FINDINGS: CT abdomen: The lung bases are remarkable for bibasilar atelectasis. The heart size is normal, without pericardial thickening or effusion. The gallbladder is markedly distended with abnormal wall thickening and mild pericholecystic inflammatory changes suggesting acute cholecystitis. Multiple sub centimeter layering gallstones in the neck of the gallbladder. There is no dilatation of the biliary tree. The liver is normal in size and density without focal mass or intrahepatic biliary dilatation. There is mild splenomegaly. The stomach is partially collapsed, but is grossly unremarkable. The pancreas as visualized is normal. The adrenal glands are symmetric and normal. The kidneys are symmetrically unremarkable as well. The kidneys are borderline small in size measuring 9 cm in length. There is a fat-containing epigastric hernia. There is a fat- containing small periumbilical hernia. The aorta is of normal caliber. Aortic vascular calcifications are present. There is no retroperitoneal lymphadenopathy. The katja hepatis region is clear. The bowel and mesentery, as visualized, are equally unremarkable. CT pelvis: The small bowel loops situated within the pelvis are unremarkable. The pelvic organs are normal. The pelvic sidewalls and inguinal regions are clear. The sigmoid colon and rectum are remarkable for a few diverticula in the sigmoid colon without evidence of acute diverticulitis. No mass, lymphadenopathy, or free fluid is seen. No acute inflammation is seen. The surrounding osseous structures are remarkable for degenerative spondylosis of the spine. No osteolytic or osteoblastic lesion is detected. IMPRESSION: 1. Markedly distended gallbladder containing multiple sub centimeter gallstones with thickened gallbladder wall and surrounding inflammatory changes in keeping with acute cholecystitis. No biliary ductal dilatation. 2. Mild splenomegaly. 3. Few sigmoid diverticula without evidence of acute diverticulitis. 4. Epigastric and periumbilical fat-containing ventral abdominal hernias. 5. Scattered aortoiliac atherosclerosis. 6. Borderline small size bilateral kidneys with no hydronephrosis. RPTAT: BB .Lamont King MD, Date Time Electronically viewed and signed by .Lamont King MD, on 09/20/2016 08:48 .O/ CC: TAZ BRANDT MD, MICHAEL A. MD Sep 20, 2016 18:13
[2016-09-20 19:54] VITALS: BP 152/82; RESP 18
[2016-09-20] MEDS: HYDROCODONE/APAP (5/325) TAB PO PRN (21:40)
[2016-09-21 01:58] VITALS: BP 134/72; RESP 18
[2016-09-21] MEDS: LEVOTHYROXINE 125 MCG TAB PO SCH ×2 (06:36→06:46)
[2016-09-21] MEDS: PIPER-TAZO 3.375 GM IV (PMX) 100 ML IVPB SCH ×4 (06:36→23:27)
[2016-09-21 07:28] VITALS: BP 155/85; RESP 18
[2016-09-21] MEDS: THIAMINE 100 MG TAB PO SCH ×2 (09:00→21:34)
[2016-09-21] MEDS: FOLIC ACID 1 MG TAB PO SCH (09:04)
[2016-09-21] MEDS: MULTIVITAMINS/MINERALS TAB PO SCH (09:04)
[2016-09-21] MEDS: MULTIVITAMINS 10 ML, THIAMINE 100 MG, FOLIC ACID 1 MG in SOD CHLORIDE 0.9% 1,000 ML IVPB SCH (09:21)
--- NOTE | 2016-09-21 09:42 | PN ---
DATE: 09/21/2016 SUBJECTIVE DATA: The patient is currently stable. No events overnight. Patient complains of mild abdominal pain. No other events noted. OBJECTIVE DATA: VITAL SIGNS: Blood pressure 155/85, respirations 18, pulse 87, temperature 99.2. HEENT: Head is normocephalic. NECK: Supple. HEART: Regular rate. LUNGS: Show diminished breath sounds base. ABDOMEN: Soft, nontender to palpation. EXTREMITIES: Negative for clubbing, cyanosis. No trace edema. DERMATOLOGIC: Clean. No rashes. MUSCULOSKELETAL: No joint effusion. NEUROLOGIC: Unchanged exam. MEDICATIONS: Reviewed. LABORATORY AND DIAGNOSTIC DATA: Reviewed. New laboratories currently pending. ASSESSMENT AND PLAN: 1. Nonoliguric acute kidney injury on top of chronic kidney disease with unknown baseline creatinine. Etiology of acute kidney injury is secondary hemodynamics, volume depletion. The patient's renal function improved after intravenous fluids. At this point, continue current treatment, supportive care. Renally dose all meds. 2. Anemia. Continue to monitor H and H levels. 3. Hypomagnesemia. Continue to monitor and replete. 4. Mineral bone disorder. Monitor calcium and phosphorus levels. 5. Acute cholecystitis. The patient has been seen by General Surgery. No plans for surgery at this time. The patient may require CT-guided cholecystostomy if no improvement in symptoms. Continue current antibiotic regimen. 6. Sepsis secondary to urinary tract infection. Continue current antibiotic regimen. 7. Lower extremity edema. Etiology is likely from venous insufficiency. Continue to monitor. 8. History of opiate dependence. Dictated By: Lucas Long DO /marco/hetal /Document#: [id number]
[2016-09-21 12:21] LABS: ABNORMAL IP MESSAGE 1; BASOPHILS % 0.1 % (0.0-2.0); HEMATOCRIT 30.1 % (37.0-47.0); HEMOGLOBIN 9.6 g/dl (12.0-16.0); LYMPHOCYTES # 0.5 10^3/ul (0.8-2.9); LYMPHOCYTES % 3.2 % (15.0-51.0); MEAN CORPUSCULAR HEMOGLOBIN 30.6 pg (29.0-33.0); MEAN CORPUSCULAR HGB CONC 31.9 g/dl (32.0-37.0); MEAN CORPUSCULAR VOLUME 95.9 fl (82.0-101.0); MEAN PLATELET VOLUME 9.5 fl (7.4-10.4); MONOCYTES % 6.3 % (0.0-11.0); NEUTROPHIL # 14.5 10^3/ul (1.6-7.5); NEUTROPHILS % 89.2 % (39.0-77.0); PLATELET COUNT 177 10^3/UL (140-415); RED BLOOD COUNT 3.14 10^6/ul (4.20-5.40); RED CELL DISTRIBUTION WIDTH 15.1 % (11.5-14.5); WHITE BLOOD COUNT 16.3 10^3/ul (4.8-10.8)
[2016-09-21 12:28] LABS: POSITIVE DIFF @See below
[2016-09-21 12:54] LABS: ALBUMIN 2.9 g/dl (3.3-4.9); ALBUMIN/GLOBULIN RATIO 0.9; BILIRUBIN,INDIRECT 0.4 mg/dl (0-1.1); BILIRUBIN,TOTAL 0.4 mg/dl (0.2-1.3); CREATININE 0.95 mg/dl (0.44-1.00); POTASSIUM 3.4 mmol/L (3.5-5.1); TOTAL PROTEIN 6.1 g/dl (6.1-8.1)
[2016-09-21] MEDS: HYDROCODONE/APAP (5/325) TAB PO PRN ×3 (13:17→23:28)
[2016-09-21 13:51] VITALS: BP 163/92; RESP 18
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
[2016-09-21] MEDS ORDERED: FUROSEMIDE 20 MG INJ IV ONE (19:00)
[2016-09-21 19:50] VITALS: BP 146/89; RESP 20
--- NOTE | 2016-09-21 20:16 | PN ---
Date/Time of Note Date/Time of Note DATE: 09/21/16 TIME: 20:14 Assessment/Plan Lines/Catheters IV Catheter Type (from [facility]): Peripheral IV Rojas in Place (from [facility]): No Assessment/Plan Assessment/Plan 66-year-old morbidly obese female with multiple medical problems and acute cholecystitis * Obviously the patient is a poor surgical candidate given her multiple baseline comorbidities as well as acute issues that she has going on. * Would prefer to treat her conservatively with broad-spectrum intravenous antibiotics and pain control as needed. * If symptoms do not improve we may need to consider percutaneous CT-guided cholecystostomy. * Continue conservative management Further recommendations will made based on patient's clinical course Subjective 24 Hr Interval Summary Complaining of back pain. Afebrile. Exam/Review of Systems Vital Signs Vitals Vital Signs Date Time Temp Pulse Resp B/P Pulse Ox O2 Delivery O2 Flow Rate FiO2 09/21/16 19:50 99.1 72 20 146/89 97 09/21/16 16:53 2.0 09/19/16 03:18 21 Intake and Output 09/20/16 09/20/16 09/21/16 15:00 23:00 07:00 Intake Total 100 ml 1951.2 ml 540 ml Balance 100 ml 1951.2 ml 540 ml Exam Free Text/Dictation GENERAL: Morbidly obese, awake, but not oriented. No acute distress. SKIN: No jaundice. HEENT: PERRLA, EOMI, No Scleral Icterus CARDIOVASCULAR: S1S2, regular rate and rhythm. No murmurs appreciated. RESPIRATORY: Decreased breath sounds bilateral bases. ABDOMEN: Morbidly obese, soft, bowel sounds present, there is mild right upper quadrant tenderness to palpation. There is no evidence of rebound or guarding or diffuse peritonitis. EXTREMITIES: Free range of motion x 4. No cyanosis, edema, or clubbing. Results Result Diagram: 09/21/16 1139 09/21/16 1139 TONIE LORA MD Sep 21, 2016 20:16
[2016-09-22 02:57] VITALS: BP 135/78; RESP 19
[2016-09-22] MEDS: HYDROCODONE/APAP (5/325) TAB PO PRN ×4 (05:44→20:52)
[2016-09-22] MEDS: LEVOTHYROXINE 125 MCG TAB PO SCH (05:44)
[2016-09-22] MEDS: PIPER-TAZO 3.375 GM IV (PMX) 100 ML IVPB SCH ×3 (05:45→18:06)
[2016-09-22 07:43] VITALS: BP 137/86; RESP 18
[2016-09-22] MEDS: FOLIC ACID 1 MG TAB PO SCH (09:23)
[2016-09-22] MEDS: MULTIVITAMINS/MINERALS TAB PO SCH (09:23)
[2016-09-22] MEDS: THIAMINE 100 MG TAB PO SCH ×2 (09:24→20:51)
[2016-09-22] MEDS: ACETAMINOPHEN 325 MG TAB PO PRN (09:24)
--- NOTE | 2016-09-22 10:02 | PN ---
DATE: 09/22/2016 SUBJECTIVE DATA: The patient is stable. Continues to complain of some general pain. No other events noted. No hemoptysis, hematemesis, or hematochezia. OBJECTIVE DATA: VITAL SIGNS: Blood pressure 137/86, respirations 18, pulse 80, temperature 100.5. HEENT: Head is normocephalic. NECK: Supple. HEART: Regular rate. LUNGS: Diminished breath sounds at the base. ABDOMEN: Soft, nontender to palpation. No rebound or guarding. EXTREMITIES: Negative for clubbing, cyanosis. Trace edema. DERMATOLOGIC: No rashes. MUSCULOSKELETAL: No joint effusion. NEUROLOGIC: Unchanged exam. MEDICATIONS: Reviewed. LABORATORY DATA: Sodium 130, potassium 3.4, BUN is 21, creatinine 0.95. White count is 16.3, hemoglobin 9.6, platelet count 177,000 this is laboratory data from 09/21. Laboratory data from 09/22/2016 is pending. ASSESSMENT AND PLAN: 1. Nonoliguric acute kidney injury on top of chronic kidney disease with unknown baseline creatinine. Etiology secondary to hemodynamics. Renal function has improved. Continue current treatment plan. 2. Anemia. Monitor hemoglobin and hematocrit levels. 3. Hypomagnesemia. Continue to monitor and replete. 4. Hypokalemia. Continue to monitor and replete. 5. Mineral bone disorder. Continue to monitor calcium and phosphorus levels. 6. Acute cholecystitis. Patient is on antibiotic therapy. Continue follow up with General Surgery. 7. Sepsis. Continue current antibiotic regimen. 8. Lower extremity edema. Continue to monitor. 9. History of opiate dependence. Dictated By: Lucas Long DO /marco/mis /Document#: [id number]
[2016-09-22] MEDS ORDERED: POTASSIUM CHLORIDE (SR) 20 MEQ TAB PO STA (10:08)
[2016-09-22] MEDS ORDERED: FUROSEMIDE 20 MG INJ IV ONE (10:30)
[2016-09-22] MEDS: ALBUTEROL 0.083% (NEB) 2.5 MG/3 ML AMP HHN PRN (11:06)
[2016-09-22 14:17] VITALS: BP 103/62; RESP 18
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
--- NOTE | 2016-09-22 18:36 | RADRPT ---
PROCEDURE: XR Chest. CLINICAL INDICATION: Shortness of breath, wheezing TECHNIQUE: Single frontal view of the chest was obtained COMPARISON: 04/16/2016 FINDINGS: Atherosclerotic changes are seen in the aortic arch. There is persistent tortuosity of the descending thoracic aorta. The cardiac silhouette is unremarkable. The lungs are clear. There is no pleural effusion or pneumothorax. The bones and soft tissue show no acute change. IMPRESSION: No acute abnormalities are identified on this single view. RPTAT:AAJJ Physician Lalo Date Time Electronically viewed and signed by Ron Barrett Physician on 09/22/2016 18:35 /
--- NOTE | 2016-09-22 18:38 | PN ---
Date/Time of Note Date/Time of Note DATE: 09/22/16 TIME: 18:37 Assessment/Plan Lines/Catheters IV Catheter Type (from Nrs): Saline Lock Rojas in Place (from Nrs): No Assessment/Plan Assessment/Plan 66-year-old morbidly obese female with multiple medical problems and acute cholecystitis * Obviously the patient is a poor surgical candidate given her multiple baseline comorbidities as well as acute issues that she has going on. * Would prefer to treat her conservatively with broad-spectrum intravenous antibiotics and pain control as needed. * If symptoms do not improve we may need to consider percutaneous CT-guided cholecystostomy. * Continue conservative management * Check labs in a.m. Further recommendations will made based on patient's clinical course Subjective 24 Hr Interval Summary Says she feels better. Still with some mild right upper quadrant pain. Tolerating diet. Still somewhat disoriented. T-max 100.5 Exam/Review of Systems Vital Signs Vitals Vital Signs Date Time Temp Pulse Resp B/P Pulse Ox O2 Delivery O2 Flow Rate FiO2 09/22/16 14:17 98.5 69 18 103/62 95 09/22/16 11:06 21 09/21/16 16:53 2.0 Intake and Output 09/21/16 09/21/16 09/22/16 15:00 23:00 07:00 Intake Total 300 ml 1881 ml Balance 300 ml 1881 ml Exam Free Text/Dictation GENERAL: Morbidly obese, awake, but not oriented. No acute distress. SKIN: No jaundice. HEENT: PERRLA, EOMI, No Scleral Icterus CARDIOVASCULAR: S1S2, regular rate and rhythm. No murmurs appreciated. RESPIRATORY: Decreased breath sounds bilateral bases. ABDOMEN: Morbidly obese, soft, bowel sounds present, there is mild right upper quadrant tenderness to palpation. There is no evidence of rebound or guarding or diffuse peritonitis. EXTREMITIES: Free range of motion x 4. No cyanosis, edema, or clubbing. Results Result Diagram: 09/21/16 1139 09/21/16 1139 TONIE LORA MD Sep 22, 2016 18:38
[2016-09-22 19:41] VITALS: BP 136/72; RESP 20
[2016-09-23] MEDS: PIPER-TAZO 3.375 GM IV (PMX) 100 ML IVPB SCH ×5 (00:40→23:58)
[2016-09-23] MEDS: ALBUTEROL 0.083% (NEB) 2.5 MG/3 ML AMP HHN PRN (00:57)
[2016-09-23] MEDS: HYDROCODONE/APAP (5/325) TAB PO PRN ×3 (01:19→23:06)
[2016-09-23 01:48] VITALS: BP 130/87; RESP 18
[2016-09-23 06:06] LABS: BASOPHILS % 0.1 % (0.0-2.0); EOSINOPHILS % 0.1 % (0.0-7.0); HEMATOCRIT 26.6 % (37.0-47.0); HEMOGLOBIN 8.6 g/dl (12.0-16.0); LYMPHOCYTES # 0.8 10^3/ul (0.8-2.9); LYMPHOCYTES % 5.3 % (15.0-51.0); MEAN CORPUSCULAR HGB CONC 32.3 g/dl (32.0-37.0); MEAN CORPUSCULAR VOLUME 92.7 fl (82.0-101.0); MONOCYTE # 1.4 10^3/ul (0.3-0.9); MONOCYTES % 9.3 % (0.0-11.0); NEUTROPHIL # 12.7 10^3/ul (1.6-7.5); NEUTROPHILS % 83.9 % (39.0-77.0); PLATELET COUNT 165 10^3/UL (140-415); RED BLOOD COUNT 2.87 10^6/ul (4.20-5.40); RED CELL DISTRIBUTION WIDTH 15.2 % (11.5-14.5); WHITE BLOOD COUNT 15.2 10^3/ul (4.8-10.8)
[2016-09-23 06:23] LABS: MAGNESIUM 1.2 mg/dl (1.7-2.5); PHOSPHORUS 2.1 mg/dl (2.5-4.9)
[2016-09-23 06:46] LABS: ALBUMIN 2.5 g/dl (3.3-4.9); ALBUMIN/GLOBULIN RATIO 0.83; BILIRUBIN,INDIRECT 0.5 mg/dl (0-1.1); BILIRUBIN,TOTAL 0.5 mg/dl (0.2-1.3); CALCIUM 7.5 mg/dl (8.4-10.2); CREATININE 1.08 mg/dl (0.44-1.00); POTASSIUM 3.1 mmol/L (3.5-5.1); TOTAL PROTEIN 5.5 g/dl (6.1-8.1)
[2016-09-23 08:12] VITALS: BP 103/60; RESP 21
[2016-09-23] MEDS ORDERED: POTASSIUM CHLORIDE (SR) 20 MEQ TAB PO STA (08:22)
[2016-09-23] MEDS ORDERED: NEUTRA-PHOS 250 MG PACKET PO ONE (08:30)
[2016-09-23] MEDS ORDERED: MAGNESIUM SULFATE 2 GM/50 ML 50 ML IVPB ONE (09:30)
[2016-09-23] MEDS: LEVOTHYROXINE 125 MCG TAB PO SCH (09:37)
[2016-09-23] MEDS: THIAMINE 100 MG TAB PO SCH ×2 (09:37→22:41)
[2016-09-23] MEDS: FOLIC ACID 1 MG TAB PO SCH (09:38)
[2016-09-23] MEDS: MULTIVITAMINS/MINERALS TAB PO SCH (09:38)
--- NOTE | 2016-09-23 09:40 | PN ---
DATE: SUBJECTIVE DATA: The patient is stable. The patient continues to have mild pain, although improving. The patient also describes drinking copious amounts of fluid. I explained to the patient to minimize her free water intake and to encourage more p.o. intake of solid foods and solutes. No other events noted. OBJECTIVE DATA: VITAL SIGNS: Blood pressure 130/60, respirations 21, pulse 92, temperature 98.6. HEENT: Head is normocephalic. NECK: Supple. HEART: Regular rate. LUNGS: Diminished breath sounds base. ABDOMEN: Soft, no tenderness to palpation. No rebound or guarding. EXTREMITIES: Negative for clubbing, cyanosis, no edema. DERMATOLOGIC: No rashes. MUSCULOSKELETAL: No joint effusion. NEUROLOGIC: No change in exam. MEDICATIONS: Reviewed. LABORATORY AND DIAGNOSTIC DATA: Shows a white count 15.2, hemoglobin 8.6, hematocrit 26.6, platelet count is 165. Sodium 130, potassium 3.1, chloride 90, BUN 20, creatinine 1.08, phosphorus 2.1, magnesium 1.2. Chest x-ray showed no acute findings. ASSESSMENT AND PLAN: 1. Nonoliguric acute kidney injury with unknown baseline creatinine. Etiology is likely secondary to hemodynamics. Renal function has improved overall. Continue to monitor. Continue current treatment plan. 2. Hypomagnesemia, hypokalemia. Continue to monitor and replete. 3. Mineral bone disorder. The patient is hypophosphatemic. We will replete with sodium phosphate. 4. Hyponatremia, etiology is multifactorial, in part due to polydipsia in the setting low solute intake, hypokalemic. Plan is to encourage increase solute intake. Limit free water intake. Will correct underlying hypokalemia. Monitor. 5. Acute cholecystitis. Continue current antibiotic regimen. Follow up with General Surgery. 6. Sepsis. Continue current treatment plan. 7. Lower extremity edema. Improved. 8. History of opiate dependence. Dictated By: Lucas Long DO /[email or web address]/[email or web address] /Document#: [id number]
--- NOTE | 2016-09-23 12:30 | PN ---
Date/Time of Note Date/Time of Note DATE: 09/23/16 TIME: 12:28 Assessment/Plan Lines/Catheters IV Catheter Type (from [facility]): Saline Lock Rojas in Place (from [facility]): No Assessment/Plan Assessment/Plan 66-year-old morbidly obese female with multiple medical problems and acute cholecystitis * Obviously the patient is a poor surgical candidate given her multiple baseline comorbidities as well as acute issues that she has going on. * Would prefer to treat her conservatively with broad-spectrum intravenous antibiotics and pain control as needed. * If symptoms do not improve we may need to consider percutaneous CT-guided cholecystostomy. * Clinically stable. Continue conservative management Further recommendations will made based on patient's clinical course Subjective 24 Hr Interval Summary No acute issues. Afebrile. Exam/Review of Systems Vital Signs Vitals Vital Signs Date Time Temp Pulse Resp B/P Pulse Ox O2 Delivery O2 Flow Rate FiO2 09/23/16 08:12 98.6 92 21 103/60 96 09/23/16 00:57 21 09/21/16 16:53 2.0 Intake and Output 09/22/16 09/22/16 09/23/16 15:00 23:00 07:00 Intake Total 800 ml 920 ml 200 ml Balance 800 ml 920 ml 200 ml Exam Free Text/Dictation GENERAL: Morbidly obese, awake, but not oriented. No acute distress. SKIN: No jaundice. HEENT: PERRLA, EOMI, No Scleral Icterus CARDIOVASCULAR: S1S2, regular rate and rhythm. No murmurs appreciated. RESPIRATORY: Decreased breath sounds bilateral bases. ABDOMEN: Morbidly obese, soft, bowel sounds present, there is mild right upper quadrant tenderness to palpation. There is no evidence of rebound or guarding or diffuse peritonitis. EXTREMITIES: Free range of motion x 4. No cyanosis, edema, or clubbing. Results Result Diagram: 09/23/16 0524 09/23/16 0524 TONIE LORA MD Sep 23, 2016 12:30
[2016-09-23 13:52] VITALS: BP 113/67; RESP 19
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
[2016-09-23 20:06] VITALS: BP 117/68; RESP 18
[2016-09-24 02:00] VITALS: BP 106/72; RESP 18
[2016-09-24] MEDS: HYDROCODONE/APAP (5/325) TAB PO PRN ×3 (03:15→21:36)
[2016-09-24] MEDS: PIPER-TAZO 3.375 GM IV (PMX) 100 ML IVPB SCH ×3 (05:29→17:58)
[2016-09-24 06:14] LABS: CALCIUM 7.7 mg/dl (8.4-10.2); CREATININE 1.12 mg/dl (0.44-1.00); MAGNESIUM 1.8 mg/dl (1.7-2.5); PHOSPHORUS 2.4 mg/dl (2.5-4.9); POTASSIUM 3.1 mmol/L (3.5-5.1)
[2016-09-24 07:46] VITALS: BP 118/78; RESP 20
[2016-09-24] MEDS ORDERED: POTASSIUM CHLORIDE (SR) 20 MEQ TAB PO STA (08:04)
[2016-09-24] MEDS ORDERED: POTASSIUM PHOSPHATE 20 MEQ in SOD CHLORIDE 0.9% 250 ML IVPB ONE (08:30)
[2016-09-24] MEDS: FOLIC ACID 1 MG TAB PO SCH (09:03)
[2016-09-24] MEDS: LEVOTHYROXINE 125 MCG TAB PO SCH (09:03)
[2016-09-24] MEDS: MULTIVITAMINS/MINERALS TAB PO SCH (09:03)
[2016-09-24] MEDS: SOD CHLORIDE 0.9% 1,000 ML IV SCH (09:04)
[2016-09-24] MEDS: THIAMINE 100 MG TAB PO SCH ×2 (09:04→20:54)
--- NOTE | 2016-09-24 09:54 | PN ---
DATE: 09/24/2016 SUBJECTIVE: The patient is stable. No events overnight. No fevers, chills, nausea, vomiting. OBJECTIVE DATA: VITAL SIGNS: Blood pressure is 118/78. Respirations 20. Pulse 83. Temperature 99.1. HEENT: Head is normocephalic. NECK: Supple. HEART: Regular rate. LUNGS: Showed diminished breath sounds at the bases. ABDOMEN: Soft, nontender to palpation. No rebound or guarding. EXTREMITIES: Negative for clubbing, cyanosis with no edema. DERMATOLOGIC: Clean. No rashes. MUSCULOSKELETAL: No joint effusion. NEUROLOGIC: No change in exam. MEDICATIONS: Reviewed. LABORATORY AND DIAGNOSTIC DATA: Sodium 137, potassium 3.1, chloride 93, BUN 19, creatinine 1.12, phosphorous 2.4. White count 15.2, hemoglobin 8.6, hematocrit 26.6, platelet count 155. ASSESSMENT AND PLAN: 1. Nonoliguric acute kidney injury. Etiology was secondary to hemodynamics. The patient's renal function has improved with intravenous fluids. Over the last 48 hours, there has been a mild decline in renal function. This may be due to hemodynamics. We will reintroduce the patient on normal saline. 2. Hyponatremia. Etiology may be secondary to a combination of hypokalemia and low solid intake. The patient is placed on free water restriction. We will also give the patient a fluid challenge and repeat urine sodium, urine osmolarity, and serum osmolarity studies. We will monitor closely. 3. Hypomagnesemia, hypokalemia. Continue to monitor and replete. 4. Mineral and bone disorder. The patient is hypophosphatemic. We will treat with sodium phosphate. 5. Acute cholecystitis. Continue current antibiotic regimen. Follow up with Surgery. 6. Sepsis. Continue current antibiotic regimen. 7. History of opiate dependence. Dictated By: Lucas Long DO /marco/linda /Document#: [id number]
[2016-09-24 10:56] LABS: ADD UMIC YES; UR ASCORBIC ACID NEGATIVE (NEGATIVE); UR BILIRUBIN (Dip) NEGATIVE (NEGATIVE); UR BLOOD (Dip) 1+ mg/dL (NEGATIVE); UR CLARITY CLEAR (CLEAR); UR COLOR YELLOW (YELLOW); UR GLUCOSE (Dip) NEGATIVE (NEGATIVE); UR KETONES (Dip) NEGATIVE (NEGATIVE); UR LEUKOCYTE ESTERASE (Dip) NEGATIVE Leu/ul (NEGATIVE); UR NITRITE (Dip) NEGATIVE (NEGATIVE); UR RBC 1 /HPF (0-5); UR SPECIFIC GRAVITY (Dip) 1.017 (1.003-1.030); UR SQUAMOUS EPITHELIAL CELL FEW /HPF (FEW); UR TOTAL PROTEIN (Dip) 1+ mg/dl (NEGATIVE); UR UROBILINOGEN (Dip) NEGATIVE (NEGATIVE)
--- NOTE | 2016-09-24 13:14 | PN ---
Date/Time of Note Date/Time of Note DATE: 09/24/16 TIME: 13:12 Assessment/Plan Lines/Catheters IV Catheter Type (from Nrs): Peripheral IV Rojas in Place (from [facility]): No Assessment/Plan Assessment/Plan 66-year-old morbidly obese female with multiple medical problems and acute cholecystitis * Obviously the patient is a poor surgical candidate given her multiple baseline comorbidities as well as acute issues that she has going on. * Would prefer to treat her conservatively with broad-spectrum intravenous antibiotics and pain control as needed. * If symptoms do not improve we may need to consider percutaneous CT-guided cholecystostomy. * Clinically stable. Continue conservative management Further recommendations will made based on patient's clinical course Subjective 24 Hr Interval Summary No acute events overnight. Afebrile. Tolerating diet. Exam/Review of Systems Vital Signs Vitals Vital Signs Date Time Temp Pulse Resp B/P Pulse Ox O2 Delivery O2 Flow Rate FiO2 09/24/16 07:46 99.1 83 20 118/78 98 09/23/16 00:57 21 09/21/16 16:53 2.0 Intake and Output 09/23/16 09/23/16 09/24/16 15:00 23:00 07:00 Intake Total 750 ml 810 ml 450 ml Balance 750 ml 810 ml 450 ml Exam Free Text/Dictation GENERAL: Morbidly obese, awake, but not oriented. No acute distress. SKIN: No jaundice. HEENT: PERRLA, EOMI, No Scleral Icterus CARDIOVASCULAR: S1S2, regular rate and rhythm. No murmurs appreciated. RESPIRATORY: Decreased breath sounds bilateral bases. ABDOMEN: Morbidly obese, soft, bowel sounds present, there is mild right upper quadrant tenderness to palpation. There is no evidence of rebound or guarding or diffuse peritonitis. EXTREMITIES: Free range of motion x 4. No cyanosis, edema, or clubbing. Results Result Diagram: 09/23/16 0524 09/24/16 0452 TONIE LORA MD Sep 24, 2016 13:14
[2016-09-24 13:31] VITALS: BP 146/85; RESP 20
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
[2016-09-24 21:01] VITALS: BP 123/85; RESP 20
[2016-09-24] MEDS: ALBUTEROL 0.083% (NEB) 2.5 MG/3 ML AMP HHN PRN (21:59)
[2016-09-25] MEDS: PIPER-TAZO 3.375 GM IV (PMX) 100 ML IVPB SCH ×4 (00:18→18:20)
[2016-09-25 02:00] VITALS: BP 123/70; RESP 20
[2016-09-25] MEDS: SOD CHLORIDE 0.9% 1,000 ML IV SCH (06:00)
[2016-09-25 07:28] VITALS: BP 120/74; RESP 20
[2016-09-25] MEDS: MULTIVITAMINS/MINERALS TAB PO SCH (09:26)
[2016-09-25] MEDS: FOLIC ACID 1 MG TAB PO SCH (09:26)
[2016-09-25] MEDS: LEVOTHYROXINE 125 MCG TAB PO SCH (09:26)
[2016-09-25] MEDS: THIAMINE 100 MG TAB PO SCH ×2 (09:26→20:35)
[2016-09-25] MEDS: HYDROCODONE/APAP (5/325) TAB PO PRN ×3 (09:33→20:35)
--- NOTE | 2016-09-25 09:45 | PN ---
Date/Time of Note Date/Time of Note DATE: 09/25/16 TIME: 09:44 Assessment/Plan Lines/Catheters IV Catheter Type (from Nrs): Peripheral IV Rojas in Place (from [facility]): No Assessment/Plan Assessment/Plan 66-year-old morbidly obese female with multiple medical problems and acute cholecystitis * Obviously the patient is a poor surgical candidate given her multiple baseline comorbidities as well as acute issues that she has going on. * Would prefer to treat her conservatively with broad-spectrum intravenous antibiotics and pain control as needed. * Clinically stable. Continue conservative management * Surgically stable for discharge back to SNF on antibiotics when medically cleared. If she should worsen clinically then would recommend CT-guided cholecystostomy tube. Further recommendations will made based on patient's clinical course Subjective 24 Hr Interval Summary Comfortable. Says she feels better. Tolerating regular diet with bowel movements. Afebrile. Exam/Review of Systems Vital Signs Vitals Vital Signs Date Time Temp Pulse Resp B/P Pulse Ox O2 Delivery O2 Flow Rate FiO2 09/25/16 07:28 98.9 79 20 120/74 96 09/24/16 22:00 21 09/21/16 16:53 2.0 Intake and Output 09/24/16 09/24/16 09/25/16 15:00 23:00 07:00 Intake Total 354.5455 ml 955 ml 825 ml Output Total 200 ml Balance 354.5455 ml 755 ml 825 ml Exam Free Text/Dictation GENERAL: Morbidly obese, awake, but not oriented. No acute distress. SKIN: No jaundice. HEENT: PERRLA, EOMI, No Scleral Icterus CARDIOVASCULAR: S1S2, regular rate and rhythm. No murmurs appreciated. RESPIRATORY: Decreased breath sounds bilateral bases. ABDOMEN: Morbidly obese, soft, bowel sounds present, there is mild right upper quadrant tenderness to palpation. There is no evidence of rebound or guarding or diffuse peritonitis. EXTREMITIES: Free range of motion x 4. No cyanosis, edema, or clubbing. Results Result Diagram: 09/23/16 0524 09/24/16 0452 TONIE LORA MD Sep 25, 2016 09:45
--- NOTE | 2016-09-25 10:21 | PN ---
Date/Time of Note Date/Time of Note DATE: 09/25/16 TIME: 10:19 Assessment/Plan VTE Prophylaxis VTE Prophylaxis Intervention: other Lines/Catheters [facility] (from [facility]): Peripheral IV Urinary Cath still in place: No Assessment/Plan Assessment/Plan 1. Nonoliguric acute kidney injury. Etiology was secondary to hemodynamics. The patient's renal function has improved with intravenous fluids. 2. Hyponatremia. Etiology may be secondary to a combination of hypokalemia and low solid intake. The patient is placed on free water restriction. We will also give the patient a fluid challenge and repeat urine sodium, urine osmolarity, and serum osmolarity studies. We will monitor closely. 3. Hypomagnesemia, hypokalemia. Continue to monitor and replete. 4. Mineral and bone disorder. The patient is hypophosphatemic. We will treat with sodium phosphate. 5. Acute cholecystitis. Continue current antibiotic regimen. Follow up with Surgery. 6. Sepsis. Continue current antibiotic regimen. 7. History of opiate dependence. dc planning to SNF under care of Dr Barr discussed with case management Subjective 24 Hr Interval Summary Free Text/Dictation SUBJECTIVE: The patient is stable. No events overnight. No fevers, chills, nausea, vomiting. d/w case management still has sharp pain in RUQ wbc remains elevated good uop unwilling to work with PT due to weakness and pain OBJECTIVE DATA: HEENT: Head is normocephalic. NECK: Supple. HEART: Regular rate. LUNGS: Showed diminished breath sounds at the bases. ABDOMEN: Soft, nontender to palpation. No rebound or guarding. EXTREMITIES: Negative for clubbing, cyanosis with no edema. DERMATOLOGIC: Clean. No rashes. MUSCULOSKELETAL: No joint effusion. NEUROLOGIC: No change in exam. MEDICATIONS: Reviewed. Exam/Review of Systems Vital Signs Vitals Vital Signs Date Time Temp Pulse Resp B/P Pulse Ox O2 Delivery O2 Flow Rate FiO2 09/25/16 07:28 98.9 79 20 120/74 96 09/24/16 22:00 21 09/21/16 16:53 2.0 Intake and Output 09/24/16 09/24/16 09/25/16 15:00 23:00 07:00 Intake Total 354.5455 ml 955 ml 825 ml Output Total 200 ml Balance 354.5455 ml 755 ml 825 ml Results Result Diagram: 8/13/17 0524 09/24/16 0452 Results 24 hrs Laboratory Tests Test 09/24/16 13:55 Osmolality 271 L Medications Medications Current Medications Multivitamins/ Minerals (Theragran-M) 1 tab DAILY PO Last administered on 09:26; Admin Dose 1 TAB; Start 09/17/16 at 09:00 Acetaminophen (Tylenol Tab) 650 mg Q6H PRN PO PAIN LEVEL 1-3 OR FEVER Last administered on 09/22/16 09:24; Admin Dose 650 MG; Start 09/16/16 at 14:30 Miscellaneous Information Patients own medicat... BID@10,16 XX ; Start 09/16/16 at 16:26 Thiamine HCl (Vitamin B1) 500 mg BID PO Last administered on 09/25/16 09:26; Admin Dose 500 MG; Start 09/18/16 at 16:01 Folic Acid (Folic Acid) 1 mg DAILY PO Last administered on 09/25/16 09:26; Admin Dose 1 MG; Start 09/18/16 at 16:00 Acetaminophen/ Hydrocodone Bitart 1 tab 1 tab Q3H PRN PO PAIN Last administered on 09/25/16 09:33; Admin Dose 1 TAB; Start 09/19/16 at 16:00 Piperacillin Sod/ Tazobactam Sod 100 ml @ 200 mls/hr Q6 IVPB Last administered on 09/25/16 05:59; Admin Dose 200 MLS/HR; Start 09/20/16 at 12:00 Sodium Chloride (NS) 1,000 ml @ 50 mls/hr Q20H IV Last administered on 06:00; Admin Dose 50 MLS/HR; Start 09/24/16 at 08:30 ESME FISHER DO Sep 25, 2016 10:21
[2016-09-25 11:29] LABS: CREATININE 0.87 mg/dl (0.44-1.00); MAGNESIUM 1.8 mg/dl (1.7-2.5); PHOSPHORUS 2.6 mg/dl (2.5-4.9); POTASSIUM 3.5 mmol/L (3.5-5.1)
[2016-09-25 13:22] VITALS: BP 141/74; RESP 20
[2016-09-25 14:36] LABS: MICROALBUMIN 1.3 mg/dL
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
[2016-09-25 19:57] VITALS: BP 133/72; RESP 20
[2016-09-26] MEDS: PIPER-TAZO 3.375 GM IV (PMX) 100 ML IVPB SCH ×4 (00:12→18:16)
[2016-09-26] MEDS: HYDROCODONE/APAP (5/325) TAB PO PRN ×5 (00:12→20:42)
[2016-09-26] MEDS: SOD CHLORIDE 0.9% 1,000 ML IV SCH ×2 (00:30→11:58)
[2016-09-26 02:00] VITALS: BP 130/65; RESP 20
[2016-09-26 06:26] LABS: BASOPHILS % 0.3 % (0.0-2.0); EOSINOPHILS # 0.2 10^3/ul (0.0-0.5); EOSINOPHILS % 3.5 % (0.0-7.0); HEMATOCRIT 24.3 % (37.0-47.0); HEMOGLOBIN 7.8 g/dl (12.0-16.0); LYMPHOCYTES # 0.8 10^3/ul (0.8-2.9); LYMPHOCYTES % 13.3 % (15.0-51.0); MEAN CORPUSCULAR HEMOGLOBIN 30.1 pg (29.0-33.0); MEAN CORPUSCULAR HGB CONC 32.1 g/dl (32.0-37.0); MEAN CORPUSCULAR VOLUME 93.8 fl (82.0-101.0); MEAN PLATELET VOLUME 9.9 fl (7.4-10.4); MONOCYTE # 0.9 10^3/ul (0.3-0.9); NEUTROPHILS % 66.9 % (39.0-77.0); PLATELET COUNT 164 10^3/UL (140-415); RED BLOOD COUNT 2.59 10^6/ul (4.20-5.40); RED CELL DISTRIBUTION WIDTH 15.4 % (11.5-14.5)
[2016-09-26 06:37] LABS: CREATININE 1.06 mg/dl (0.44-1.00); POTASSIUM 3.8 mmol/L (3.5-5.1)
[2016-09-26 07:01] LABS: POSITIVE DIFF @See below
[2016-09-26 07:48] VITALS: BP 124/72; RESP 18
[2016-09-26] MEDS: THIAMINE 100 MG TAB PO SCH ×2 (08:23→20:42)
[2016-09-26] MEDS: LEVOTHYROXINE 125 MCG TAB PO SCH (08:23)
[2016-09-26] MEDS: FOLIC ACID 1 MG TAB PO SCH (08:23)
[2016-09-26] MEDS: MULTIVITAMINS/MINERALS TAB PO SCH (08:23)
--- NOTE | 2016-09-26 10:03 | PN ---
Date/Time of Note Date/Time of Note DATE: 09/26/16 TIME: 10:00 Assessment/Plan VTE Prophylaxis VTE Prophylaxis Intervention: other Lines/Catheters [facility] Saline Lock Urinary Cath still in place: No Assessment/Plan Chief Complaint/Hosp Course 1. Nonoliguric acute kidney injury. Etiology was secondary to hemodynamics. The patient's renal function has improved with intravenous fluids. 2. Acute cholecystitis. Continue current antibiotic regimen. no surgery at this point. 3. anemia: iron depleted. will start iv iron 4. Sepsis. Continue current antibiotic regimen. 6. History of opiate dependence. dc planning to SNF under care of Dr Barr discussed with case management SUBJECTIVE: The patient is stable. No events overnight. No fevers, chills, nausea, vomiting. d/w case management her abdominal pain is improving wbc is now normal more anemic good uop unwilling to work with PT due to weakness and pain OBJECTIVE DATA: HEENT: Head is normocephalic. NECK: Supple. HEART: Regular rate. LUNGS: Showed diminished breath sounds at the bases. ABDOMEN: Soft, nontender to palpation. No rebound or guarding. EXTREMITIES: Negative for clubbing, cyanosis with no edema. DERMATOLOGIC: Clean. No rashes. MUSCULOSKELETAL: No joint effusion. NEUROLOGIC: No change in exam. Problems: Exam/Review of Systems Vital Signs Vitals Vital Signs Date Time Temp Pulse Resp B/P Pulse Ox O2 Delivery O2 Flow Rate FiO2 09/26/16 07:48 98.8 60 18 124/72 97 09/24/16 22:00 21 Intake and Output 09/25/16 09/25/16 09/26/16 15:00 23:00 07:00 Intake Total 100 ml 900 ml 1250 ml Balance 100 ml 900 ml 1250 ml Results Result Diagram: 09/26/16 0558 09/26/16 0557 Results 24 hrs Laboratory Tests Test 09/25/16 10:05 09/26/16 05:57 09/26/16 05:58 Sodium Level 132 L 134 L Potassium Level 3.5 3.8 Chloride Level 94 L 101 Carbon Dioxide Level 26 27 Anion Gap 16 10 # Blood Urea Nitrogen 15 13 Creatinine 0.87 1.06 H Glucose Level 154 114 # Calcium Level 8.0 L 8.0 L Phosphorus Level 2.6 Magnesium Level 1.8 White Blood Count 6.0 # Red Blood Count 2.59 L Hemoglobin 7.8 L Hematocrit 24.3 L Mean Corpuscular Volume 93.8 Mean Corpuscular Hemoglobin 30.1 Mean Corpuscular Hemoglobin Concent 32.1 Red Cell Distribution Width 15.4 H Platelet Count 164 Mean Platelet Volume 9.9 Neutrophils % 66.9 Lymphocytes % 13.3 L Monocytes % 15.0 H Eosinophils % 3.5 Basophils % 0.3 Nucleated Red Blood Cells % 0.0 Neutrophils # (Manual) 4.0 Lymphocytes # 0.8 Monocytes # 0.9 Eosinophils # 0.2 Basophils # 0.0 Nucleated Red Blood Cells # 0.0 Medications Medications Current Medications Multivitamins/ Minerals (Theragran-M) 1 tab DAILY PO Last administered on 08:23; Admin Dose 1 TAB; Start 09/17/16 at 09:00 Acetaminophen (Tylenol Tab) 650 mg Q6H PRN PO PAIN LEVEL 1-3 OR FEVER Last administered on 09/22/16 09:24; Admin Dose 650 MG; Start 09/16/16 at 14:30 Miscellaneous Information Patients own medicat... BID@16 XX ; Start 09/16/16 at 16:26 Thiamine HCl (Vitamin B1) 500 mg BID PO Last administered on 09/26/16 08:23; Admin Dose 500 MG; Start 09/18/16 at 16:01 Folic Acid (Folic Acid) 1 mg DAILY PO Last administered on 09/26/16 08:23; Admin Dose 1 MG; Start 09/18/16 at 16:00 Acetaminophen/ Hydrocodone Bitart 1 tab 1 tab Q3H PRN PO PAIN Last administered on 09/26/16 09:53; Admin Dose 1 TAB; Start 09/19/16 at 16:00 Piperacillin Sod/ Tazobactam Sod 100 ml @ 200 mls/hr Q6 IVPB Last administered on 09/26/16 06:06; Admin Dose 200 MLS/HR; Start 09/20/16 at 12:00 Sodium Chloride (NS) 1,000 ml @ 50 mls/hr Q20H IV Last administered on 06:00; Admin Dose 50 MLS/HR; Start 09/24/16 at 08:30 ESME FISHER DO Sep 26, 2016 10:02
[2016-09-26] MEDS: SOD FERRIC GLUC COMPLX 125 MG in SOD CHLORIDE 0.9% 100 ML IVPB SCH (12:37)
--- NOTE | 2016-09-26 12:52 | PN ---
Date/Time of Note Date/Time of Note DATE: 09/26/16 TIME: 12:51 Assessment/Plan Lines/Catheters IV Catheter Type (from Nrs): Saline Lock Rojas in Place (from Nrs): No Assessment/Plan Assessment/Plan 66-year-old morbidly obese female with multiple medical problems and acute cholecystitis * Obviously the patient is a poor surgical candidate given her multiple baseline comorbidities as well as acute issues that she has going on. * Would prefer to treat her conservatively with broad-spectrum intravenous antibiotics and pain control as needed. * Clinically stable. Continue conservative management * White blood cell count normal * Surgically stable for discharge back to SNF on antibiotics when medically cleared. If she should worsen clinically then would recommend CT-guided cholecystostomy tube. Further recommendations will made based on patient's clinical course Subjective 24 Hr Interval Summary Sleeping comfortably. Afebrile. Exam/Review of Systems Vital Signs Vitals Vital Signs Date Time Temp Pulse Resp B/P Pulse Ox O2 Delivery O2 Flow Rate FiO2 09/26/16 07:48 98.8 60 18 124/72 97 09/24/16 22:00 21 Intake and Output 09/25/16 09/25/16 09/26/16 15:00 23:00 07:00 Intake Total 100 ml 900 ml 1250 ml Balance 100 ml 900 ml 1250 ml Exam Free Text/Dictation GENERAL: Morbidly obese, awake, but not oriented. No acute distress. SKIN: No jaundice. HEENT: PERRLA, EOMI, No Scleral Icterus CARDIOVASCULAR: S1S2, regular rate and rhythm. No murmurs appreciated. RESPIRATORY: Decreased breath sounds bilateral bases. ABDOMEN: Morbidly obese, soft, bowel sounds present, there is mild right upper quadrant tenderness to palpation. There is no evidence of rebound or guarding or diffuse peritonitis. EXTREMITIES: Free range of motion x 4. No cyanosis, edema, or clubbing. Results Result Diagram: 09/26/16 0558 09/26/16 0557 TONIE LORA MD Sep 26, 2016 12:52
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
[2016-09-26 20:14] VITALS: BP 143/74; RESP 18
[2016-09-27] MEDS: PIPER-TAZO 3.375 GM IV (PMX) 100 ML IVPB SCH ×3 (00:02→11:50)
[2016-09-27 02:14] VITALS: BP 140/85; RESP 18
[2016-09-27] MEDS: HYDROCODONE/APAP (5/325) TAB PO PRN ×4 (05:48→20:29)
[2016-09-27] MEDS: LEVOTHYROXINE 125 MCG TAB PO SCH (06:09)
[2016-09-27 06:26] LABS: BASOPHILS % 0.4 % (0.0-2.0); EOSINOPHILS % 0.1 % (0.0-7.0); HEMATOCRIT 27.8 % (37.0-47.0); HEMOGLOBIN 8.8 g/dl (12.0-16.0); LYMPHOCYTES # 1.2 10^3/ul (0.8-2.9); LYMPHOCYTES % 17.8 % (15.0-51.0); MEAN CORPUSCULAR HGB CONC 31.7 g/dl (32.0-37.0); MEAN CORPUSCULAR VOLUME 94.9 fl (82.0-101.0); MEAN PLATELET VOLUME 9.7 fl (7.4-10.4); MONOCYTE # 0.9 10^3/ul (0.3-0.9); MONOCYTES % 13.5 % (0.0-11.0); NEUTROPHILS % 67.2 % (39.0-77.0); PLATELET COUNT 190 10^3/UL (140-415); RED BLOOD COUNT 2.93 10^6/ul (4.20-5.40); RED CELL DISTRIBUTION WIDTH 15.3 % (11.5-14.5); WHITE BLOOD COUNT 6.9 10^3/ul (4.8-10.8)
[2016-09-27 06:40] LABS: CALCIUM 8.5 mg/dl (8.4-10.2); CREATININE 0.92 mg/dl (0.44-1.00); MAGNESIUM 1.8 mg/dl (1.7-2.5); PHOSPHORUS 2.9 mg/dl (2.5-4.9); POTASSIUM 4.2 mmol/L (3.5-5.1)
[2016-09-27 08:09] VITALS: BP 141/84; RESP 22
[2016-09-27] MEDS: FOLIC ACID 1 MG TAB PO SCH (08:38)
[2016-09-27] MEDS: THIAMINE 100 MG TAB PO SCH ×2 (08:38→20:27)
[2016-09-27] MEDS: MULTIVITAMINS/MINERALS TAB PO SCH (08:38)
--- NOTE | 2016-09-27 10:11 | PN ---
Date/Time of Note Date/Time of Note DATE: 09/27/16 TIME: 10:10 Assessment/Plan VTE Prophylaxis VTE Prophylaxis Intervention: other Lines/Catheters [facility] (from [facility] Peripheral IV Urinary Cath still in place: No Assessment/Plan Chief Complaint/Hosp Course 1. Nonoliguric acute kidney injury. Etiology was secondary to hemodynamics. The patient's renal function has improved with intravenous fluids. 2. Acute cholecystitis. Continue current antibiotic regimen. no surgery at this point. 3. anemia: iron depleted. will continue iv iron 4. Sepsis. Continue current antibiotic regimen. 6. History of opiate dependence. dc planning to ARF or SNF under care of Dr Barr discussed with case management SUBJECTIVE: The patient is stable. No events overnight. No fevers, chills, nausea, vomiting. d/w case management her abdominal pain is improving wbc is now normal more anemic good uop unwilling to work with PT due to weakness and pain OBJECTIVE DATA: HEENT: Head is normocephalic. NECK: Supple. HEART: Regular rate. LUNGS: Showed diminished breath sounds at the bases. ABDOMEN: Soft, nontender to palpation. No rebound or guarding. EXTREMITIES: Negative for clubbing, cyanosis with no edema. DERMATOLOGIC: Clean. No rashes. MUSCULOSKELETAL: No joint effusion. NEUROLOGIC: No change in exam. Problems: Exam/Review of Systems Vital Signs Vitals Vital Signs Date Time Temp Pulse Resp B/P Pulse Ox O2 Delivery O2 Flow Rate FiO2 09/27/16 08:09 99.3 81 22 141/84 95 09/24/16 22:00 21 Intake and Output 09/26/16 09/26/16 09/27/16 15:00 23:00 07:00 Intake Total 360 ml 1000 ml 1350 ml Balance 360 ml 1000 ml 1350 ml Results Result Diagram: 09/27/16 0556 09/27/16 0540 Results 24 hrs Laboratory Tests Test 09/27/16 05:40 09/27/16 05:56 Sodium Level 137 Potassium Level 4.2 Chloride Level 103 Carbon Dioxide Level 28 Anion Gap 10 Blood Urea Nitrogen 11 Creatinine 0.92 Glucose Level 105 Calcium Level 8.5 Phosphorus Level 2.9 Magnesium Level 1.8 White Blood Count 6.9 Red Blood Count 2.93 L Hemoglobin 8.8 L Hematocrit 27.8 L Mean Corpuscular Volume 94.9 Mean Corpuscular Hemoglobin 30.0 Mean Corpuscular Hemoglobin Concent 31.7 L Red Cell Distribution Width 15.3 H Platelet Count 190 Mean Platelet Volume 9.7 Neutrophils % 67.2 Lymphocytes % 17.8 Monocytes % 13.5 H Eosinophils % 0.1 Basophils % 0.4 Nucleated Red Blood Cells % 0.0 Neutrophils # (Manual) 4.6 Lymphocytes # 1.2 Monocytes # 0.9 Eosinophils # 0.0 Basophils # 0.0 Nucleated Red Blood Cells # 0.0 Medications Medications Current Medications Multivitamins/ Minerals (Theragran-M) 1 tab DAILY PO Last administered on 08:38; Admin Dose 1 TAB; Start 09/17/16 at 09:00 Acetaminophen (Tylenol Tab) 650 mg Q6H PRN PO PAIN LEVEL 1-3 OR FEVER Last administered on 09/22/16 09:24; Admin Dose 650 MG; Start 09/16/16 at 14:30 Miscellaneous Information Patients own medicat... BID@10,16 XX ; Start 09/16/16 at 16:26 Thiamine HCl (Vitamin B1) 500 mg BID PO Last administered on 09/27/16 08:38; Admin Dose 500 MG; Start 09/18/16 at 16:01 Folic Acid (Folic Acid) 1 mg DAILY PO Last administered on 09/27/16 08:38; Admin Dose 1 MG; Start 09/18/16 at 16:00 Acetaminophen/ Hydrocodone Bitart 1 tab 1 tab Q3H PRN PO PAIN Last administered on 09/27/16 08:41; Admin Dose 1 TAB; Start 09/19/16 at 16:00 Piperacillin Sod/ Tazobactam Sod 100 ml @ 200 mls/hr Q6 IVPB Last administered on 09/27/16 05:48; Admin Dose 200 MLS/HR; Start 09/20/16 at 12:00 Sodium Chloride 1,000 ml @ 50 mls/hr Q20H IV Last administered on 09/26/16 11 :58; Admin Dose 50 MLS/HR; Start 09/24/16 at 08:30 Ferric Sodium Gluconate Complex/ Sodium Chloride (Ferrlecit/NS) 110 ml @ 110 mls/hr Q24H IVPB Last administered on 09/26/16 12:37; Admin Dose 110 MLS/HR; Start 09/26/16 at 11:00; Stop 09/30/16 at 11:59 ESME FISHER DO Sep 27, 2016 10:11
[2016-09-27] MEDS: SOD FERRIC GLUC COMPLX 125 MG in SOD CHLORIDE 0.9% 100 ML IVPB SCH (10:15)
[2016-09-27] MEDS: SOD CHLORIDE 0.9% 1,000 ML IV SCH (11:50)
[2016-09-27 13:39] VITALS: BP 139/96; RESP 20
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
[2016-09-27] MEDS: LORAZEPAM 0.5 MG TAB PO PRN (16:58)
--- NOTE | 2016-09-27 19:52 | PN ---
Date/Time of Note Date/Time of Note DATE: 09/27/16 TIME: 19:51 Assessment/Plan Lines/Catheters IV Catheter Type (from Nrs): Peripheral IV Rojas in Place (from Nrs): No Assessment/Plan Assessment/Plan 66-year-old morbidly obese female with multiple medical problems and acute cholecystitis * Obviously the patient is a poor surgical candidate given her multiple baseline comorbidities as well as acute issues that she has going on. * Would prefer to treat her conservatively with broad-spectrum intravenous antibiotics and pain control as needed. * Clinically stable. Continue conservative management * White blood cell count normal * Surgically stable for discharge back to SNF on antibiotics when medically cleared. Subjective 24 Hr Interval Summary Stable. Abdominal pain continues to improve. Afebrile. Exam/Review of Systems Vital Signs Vitals Vital Signs Date Time Temp Pulse Resp B/P Pulse Ox O2 Delivery O2 Flow Rate FiO2 09/27/16 13:39 98.7 75 20 139/96 100 09/24/16 22:00 21 Intake and Output 09/26/16 09/26/16 09/27/16 15:00 23:00 07:00 Intake Total 360 ml 1000 ml 1350 ml Balance 360 ml 1000 ml 1350 ml Exam Free Text/Dictation GENERAL: Morbidly obese, awake, but not oriented. No acute distress. SKIN: No jaundice. HEENT: PERRLA, EOMI, No Scleral Icterus CARDIOVASCULAR: S1S2, regular rate and rhythm. No murmurs appreciated. RESPIRATORY: Decreased breath sounds bilateral bases. ABDOMEN: Morbidly obese, soft, bowel sounds present, there is mild right upper quadrant tenderness to palpation, improved. There is no evidence of rebound or guarding or diffuse peritonitis. EXTREMITIES: Free range of motion x 4. No cyanosis, edema, or clubbing. Results Result Diagram: 09/27/16 0556 09/27/16 0540 TONIE LORA MD Sep 27, 2016 19:52
[2016-09-27 20:00] VITALS: BP 119/76; RESP 20
[2016-09-28] MEDS: HYDROCODONE/APAP (5/325) TAB PO PRN ×4 (01:37→20:41)
[2016-09-28] MEDS: LORAZEPAM 0.5 MG TAB PO PRN ×4 (01:37→21:33)
[2016-09-28 02:00] VITALS: BP 135/91; RESP 20
[2016-09-28] MEDS: LEVOTHYROXINE 125 MCG TAB PO SCH (06:01)
[2016-09-28 07:54] VITALS: BP 169/91; RESP 22
[2016-09-28] MEDS: THIAMINE 100 MG TAB PO SCH ×2 (09:03→20:40)
[2016-09-28] MEDS: FOLIC ACID 1 MG TAB PO SCH (09:04)
[2016-09-28] MEDS: MULTIVITAMINS/MINERALS TAB PO SCH (09:04)
[2016-09-28 09:55] LABS: BASOPHILS % 0.5 % (0.0-2.0); EOSINOPHILS % 0.2 % (0.0-7.0); HEMATOCRIT 27.3 % (37.0-47.0); HEMOGLOBIN 8.4 g/dl (12.0-16.0); LYMPHOCYTES # 0.9 10^3/ul (0.8-2.9); LYMPHOCYTES % 13.4 % (15.0-51.0); MEAN CORPUSCULAR HEMOGLOBIN 29.3 pg (29.0-33.0); MEAN CORPUSCULAR HGB CONC 30.8 g/dl (32.0-37.0); MEAN CORPUSCULAR VOLUME 95.1 fl (82.0-101.0); MEAN PLATELET VOLUME 9.2 fl (7.4-10.4); MONOCYTE # 0.6 10^3/ul (0.3-0.9); MONOCYTES % 8.6 % (0.0-11.0); NEUTROPHILS % 75.9 % (39.0-77.0); PLATELET COUNT 204 10^3/UL (140-415); RED BLOOD COUNT 2.87 10^6/ul (4.20-5.40); RED CELL DISTRIBUTION WIDTH 15.2 % (11.5-14.5); WHITE BLOOD COUNT 6.4 10^3/ul (4.8-10.8)
[2016-09-28 10:17] LABS: CALCIUM 8.6 mg/dl (8.4-10.2); CREATININE 0.71 mg/dl (0.44-1.00); POTASSIUM 3.5 mmol/L (3.5-5.1)
[2016-09-28] MEDS: SOD FERRIC GLUC COMPLX 125 MG in SOD CHLORIDE 0.9% 100 ML IVPB SCH (10:28)
--- NOTE | 2016-09-28 12:32 | PN ---
Date/Time of Note Date/Time of Note DATE: 09/28/16 TIME: 12:28 Assessment/Plan VTE Prophylaxis VTE Prophylaxis Intervention: other Lines/Catheters IV [facility]ter Type (from [facility]): Peripheral IV Urinary Cath still in place: No Assessment/Plan Chief Complaint/Hosp Course 1. Nonoliguric acute kidney injury. Etiology was secondary to hemodynamics. The patient's renal function has improved with intravenous fluids. 2. Acute cholecystitis. Continue current antibiotic regimen. no surgery at this point. 3. anemia: iron depleted. will continue iv iron 4. Sepsis. Continue current antibiotic regimen. 6. History of opiate dependence. dc planning to ARF or SNF under care of Dr Barr discussed with case management SUBJECTIVE: The patient is stable. No events overnight. No fevers, chills, nausea, vomiting. d/w case management her abdominal pain is improving wbc is now normal more anemic good uop unwilling to work with PT due to weakness and pain OBJECTIVE DATA: HEENT: Head is normocephalic. NECK: Supple. HEART: Regular rate. LUNGS: Showed diminished breath sounds at the bases. ABDOMEN: Soft, nontender to palpation. No rebound or guarding. EXTREMITIES: Negative for clubbing, cyanosis with no edema. DERMATOLOGIC: Clean. No rashes. MUSCULOSKELETAL: No joint effusion. NEUROLOGIC: No change in exam. Problems: Exam/Review of Systems Vital Signs Vitals Vital Signs Date Time Temp Pulse Resp B/P Pulse Ox O2 Delivery O2 Flow Rate FiO2 09/28/16 07:54 98.7 85 22 169/91 97 09/24/16 22:00 21 Intake and Output 09/27/16 09/27/16 09/28/16 15:00 23:00 07:00 Intake Total 260 ml 1005 ml 500 ml Output Total 700 ml Balance 260 ml 1005 ml -200 ml Results Result Diagram: 09/28/16 0910 09/28/16 0910 Results 24 hrs Laboratory Tests Test 09/28/16 09:10 White Blood Count 6.4 Red Blood Count 2.87 L Hemoglobin 8.4 L Hematocrit 27.3 L Mean Corpuscular Volume 95.1 Mean Corpuscular Hemoglobin 29.3 Mean Corpuscular Hemoglobin Concent 30.8 L Red Cell Distribution Width 15.2 H Platelet Count 204 Mean Platelet Volume 9.2 Neutrophils % 75.9 Lymphocytes % 13.4 L Monocytes % 8.6 Eosinophils % 0.2 Basophils % 0.5 Nucleated Red Blood Cells % 0.0 Neutrophils # (Manual) 5 Lymphocytes # 0.9 Monocytes # 0.6 Eosinophils # 0.0 Basophils # 0.0 Nucleated Red Blood Cells # 0.0 Sodium Level 139 Potassium Level 3.5 Chloride Level 101 Carbon Dioxide Level 27 Anion Gap 15 Blood Urea Nitrogen 7 Creatinine 0.71 Glucose Level 119 Calcium Level 8.6 Medications Medications Current Medications Multivitamins/ Minerals (Theragran-M) 1 tab DAILY PO Last administered on 09:04; Admin Dose 1 TAB; Start 09/17/16 at 09:00 Acetaminophen (Tylenol Tab) 650 mg Q6H PRN PO PAIN LEVEL 1-3 OR FEVER Last administered on 09/22/16 09:24; Admin Dose 650 MG; Start 09/16/16 at 14:30 Miscellaneous Information Patients own medicat... BID@10,16 XX ; Start 09/16/16 at 16:26 Thiamine HCl (Vitamin B1) 500 mg BID PO Last administered on 09/28/16 09:03; Admin Dose 500 MG; Start 09/18/16 at 16:01 Folic Acid (Folic Acid) 1 mg DAILY PO Last administered on 09/28/16 09:04; Admin Dose 1 MG; Start 09/18/16 at 16:00 Acetaminophen/ Hydrocodone Bitart ([place] (5/325)) 1 tab Q3H PRN PO PAIN Last administered on 09/28/16 09:07; Admin Dose 1 TAB; Start 09/19/16 at 16:00 Lorazepam (Ativan) 0.5 mg Q6H PRN PO ANXIETY Last administered on 09/28/16 09: 07; Admin Dose 0.5 MG; Start 09/27/16 at 15:30 ESME FISHER DO Sep 28, 2016 12:31
[2016-09-28 14:49] VITALS: BP 162/97; RESP 20
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
[2016-09-28 20:16] VITALS: BP 164/99; RESP 20
[2016-09-29 02:00] VITALS: BP 145/88; RESP 18
[2016-09-29] MEDS: LEVOTHYROXINE 125 MCG TAB PO SCH (07:54)
[2016-09-29] MEDS: HYDROCODONE/APAP (5/325) TAB PO PRN ×3 (07:54→22:12)
[2016-09-29] MEDS: MULTIVITAMINS/MINERALS TAB PO SCH (08:02)
[2016-09-29] MEDS: FOLIC ACID 1 MG TAB PO SCH (08:02)
[2016-09-29] MEDS: THIAMINE 100 MG TAB PO SCH ×2 (08:03→20:31)
[2016-09-29 10:41] LABS: ADD UMIC NO; UR ASCORBIC ACID NEGATIVE (NEGATIVE); UR BILIRUBIN (Dip) NEGATIVE (NEGATIVE); UR BLOOD (Dip) NEGATIVE (NEGATIVE); UR CLARITY CLEAR (CLEAR); UR COLOR YELLOW (YELLOW); UR GLUCOSE (Dip) NEGATIVE (NEGATIVE); UR KETONES (Dip) NEGATIVE (NEGATIVE); UR LEUKOCYTE ESTERASE (Dip) NEGATIVE Leu/ul (NEGATIVE); UR NITRITE (Dip) NEGATIVE (NEGATIVE); UR SPECIFIC GRAVITY (Dip) 1.008 (1.003-1.030); UR TOTAL PROTEIN (Dip) NEGATIVE (NEGATIVE); UR UROBILINOGEN (Dip) NEGATIVE (NEGATIVE)
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
--- NOTE | 2016-09-29 11:21 | PN ---
Date/Time of Note Date/Time of Note DATE: 09/29/16 TIME: 11:21 Assessment/Plan VTE Prophylaxis VTE Prophylaxis Intervention: other Lines/Catheters IV C[facility] Type (from [facility] Peripheral IV Urinary Cath still in place: No Assessment/Plan Chief Complaint/Hosp Course 1. Nonoliguric acute kidney injury. Etiology was secondary to hemodynamics. The patient's renal function has improved with intravenous fluids. 2. Acute cholecystitis. Continue current antibiotic regimen. no surgery at this point. 3. anemia: iron depleted. will continue iv iron 4. Sepsis. Continue current antibiotic regimen. 6. History of opiate dependence. dc planning to ARF or SNF under care of Dr Barr discussed with case management SUBJECTIVE: The patient is stable. No events overnight. No fevers, chills, nausea, vomiting. d/w case management her abdominal pain is improving wbc is now normal more anemic good uop unwilling to work with PT due to weakness and pain OBJECTIVE DATA: HEENT: Head is normocephalic. NECK: Supple. HEART: Regular rate. LUNGS: Showed diminished breath sounds at the bases. ABDOMEN: Soft, nontender to palpation. No rebound or guarding. EXTREMITIES: Negative for clubbing, cyanosis with no edema. DERMATOLOGIC: Clean. No rashes. MUSCULOSKELETAL: No joint effusion. NEUROLOGIC: No change in exam. Problems: Exam/Review of Systems Vital Signs Vitals Vital Signs Date Time Temp Pulse Resp B/P Pulse Ox O2 Delivery O2 Flow Rate FiO2 09/29/16 02:00 98.7 81 18 145/88 97 Intake and Output 09/28/16 09/28/16 09/29/16 15:00 23:00 07:00 Intake Total 760 ml 800 ml Output Total 10 ml Balance -10 ml 760 ml 800 ml Results Result Diagram: 09/28/16 0910 09/28/16 0910 Results 24 hrs Laboratory Tests Test 09/29/16 03:50 Urine Color YELLOW Urine Clarity CLEAR Urine pH 7.0 Urine Specific [place] 1.008 Urine Ketones NEGATIVE Urine Nitrite NEGATIVE Urine Bilirubin NEGATIVE Urine Urobilinogen NEGATIVE Urine Leukocyte Esterase NEGATIVE Urine Hemoglobin NEGATIVE Urine Glucose NEGATIVE Urine Total Protein NEGATIVE Medications Medications Current Medications Multivitamins/ Minerals (Theragran-M) 1 tab DAILY PO Last administered on t 08:02; Admin Dose 1 TAB; Start 09/17/16 at 09:00 Acetaminophen (Tylenol Tab) 650 mg Q6H PRN PO PAIN LEVEL 1-3 OR FEVER Last administered on 09/22/16 09:24; Admin Dose 650 MG; Start 09/16/16 at 14:30 Miscellaneous Information Patients own medicat... BID@10,16 XX ; Start 09/16/16 at 16:26 Thiamine HCl (Vitamin B1) 500 mg BID PO Last administered on 09/29/16 08:03; Admin Dose 500 MG; Start 09/18/16 at 16:01 Folic Acid (Folic Acid) 1 mg DAILY PO Last administered on 09/29/16 08:02; Admin Dose 1 MG; Start 09/18/16 at 16:00 Acetaminophen/ Hydrocodone Bitart ([place] (5/325)) 1 tab Q3H PRN PO PAIN Last administered on 09/29/16 07:54; Admin Dose 1 TAB; Start 09/19/16 at 16:00 Lorazepam (Ativan) 0.5 mg Q6H PRN PO ANXIETY Last administered on 09/28/16 21: 33; Admin Dose 0.5 MG; Start 09/27/16 at 15:30 ESME FISHER DO Sep 29, 2016 11:21
[2016-09-29] MEDS: LORAZEPAM 0.5 MG TAB PO PRN ×2 (13:38→22:12)
[2016-09-29 13:48] VITALS: BP 175/98; RESP 20
[2016-09-29 19:35] VITALS: BP 154/68; RESP 18
[2016-09-30 02:34] VITALS: BP 142/81; RESP 20
[2016-09-30] MEDS: LEVOTHYROXINE 125 MCG TAB PO SCH (06:24)
[2016-09-30] MEDS: HYDROCODONE/APAP (5/325) TAB PO PRN ×4 (06:25→23:21)
[2016-09-30] MEDS: MULTIVITAMINS/MINERALS TAB PO SCH (09:22)
[2016-09-30] MEDS: FOLIC ACID 1 MG TAB PO SCH (09:22)
[2016-09-30] MEDS: THIAMINE 100 MG TAB PO SCH ×3 (09:23→21:00)
--- NOTE | 2016-09-30 10:25 | PN ---
Date/Time of Note Date/Time of Note DATE: 09/30/16 TIME: 10:23 Assessment/Plan VTE Prophylaxis VTE Prophylaxis Intervention: other Lines/Catheters IV Catheter Type (from [facility]): Peripheral IV Urinary Cath still in place: No Assessment/Plan Chief Complaint/Hosp Course SUBJECTIVE: The patient is stable. No events overnight. No fevers, chills, nausea, vomiting. d/w case management her abdominal pain is improving wbc is now normal more anemic good uop unwilling to work with PT due to weakness and pain OBJECTIVE DATA: HEENT: Head is normocephalic. NECK: Supple. HEART: Regular rate. LUNGS: Showed diminished breath sounds at the bases. ABDOMEN: Soft, nontender to palpation. No rebound or guarding. EXTREMITIES: Negative for clubbing, cyanosis with no edema. DERMATOLOGIC: Clean. No rashes. MUSCULOSKELETAL: No joint effusion. NEUROLOGIC: No change in exam. 1. Nonoliguric acute kidney injury. Etiology was secondary to hemodynamics. The patient's renal function has improved with intravenous fluids. 2. Acute cholecystitis. Continue current antibiotic regimen. no surgery at this point. 3. anemia: iron depleted. will continue iv iron 4. Sepsis. Continue current antibiotic regimen. 6. History of opiate dependence. dc planning to ARF or SNF under care of Dr Barr discussed with case management Problems: Exam/Review of Systems Vital Signs Vitals Vital Signs Date Time Temp Pulse Resp B/P Pulse Ox O2 Delivery O2 Flow Rate FiO2 09/30/16 02:34 98.1 81 20 142/81 98 Intake and Output 09/29/16 09/29/16 09/30/16 15:00 23:00 07:00 Intake Total 680 ml 260 ml Balance 680 ml 260 ml Results Result Diagram: 09/28/16 0910 09/28/16 0910 Medications Medications Current Medications Multivitamins/ Minerals (Theragran-M) 1 tab DAILY PO Last administered on 09:22; Admin Dose 1 TAB; Start 09/17/16 at 09:00 Acetaminophen (Tylenol Tab) 650 mg Q6H PRN PO PAIN LEVEL 1-3 OR FEVER Last administered on 09/22/16 09:24; Admin Dose 650 MG; Start 09/16/16 at 14:30 Miscellaneous Information Patients own medicat... BID@10,16 XX ; Start 09/16/16 at 16:26 Thiamine HCl (Vitamin B1) 500 mg BID PO Last administered on 09/30/16 09:23; Admin Dose 500 MG; Start 09/18/16 at 16:01 Folic Acid (Folic Acid) 1 mg DAILY PO Last administered on 09/30/16 09:22; Admin Dose 1 MG; Start 09/18/16 at 16:00 Acetaminophen/ Hydrocodone Bitart ([place] (5/325)) 1 tab Q3H PRN PO PAIN Last administered on 09/30/16 06:25; Admin Dose 1 TAB; Start 09/19/16 at 16:00 Lorazepam (Ativan) 0.5 mg Q6H PRN PO ANXIETY Last administered on 09/29/16 22: 12; Admin Dose 0.5 MG; Start 09/27/16 at 15:30 ESME FISHER DO Sep 30, 2016 10:25
[2016-09-30] MEDS: LORAZEPAM 0.5 MG TAB PO PRN ×2 (14:34→20:07)
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
[2016-09-30 19:23] VITALS: BP 180/101; RESP 20
[2016-09-30] MEDS ORDERED: hydrALAzine 20 MG INJ IV PRN (20:00)
[2016-09-30 20:03] VITALS: BP 178/105; PULSE 67
[2016-09-30 23:05] VITALS: BP 142/91; PULSE 75
[2016-10-01] VITALS (8 sets, daily range): BP systolic 150–185; BP diastolic 81–186; PULSE 68–88; RESP 18–20
[2016-10-01] MEDS: NEBIVOLOL 5 MG TAB PO SCH ×2 (02:00→05:33)
[2016-10-01] MEDS: LOSARTAN 50 MG TAB PO SCH ×2 (02:06→08:38)
[2016-10-01] MEDS: HYDROCODONE/APAP (5/325) TAB PO PRN ×2 (02:06→14:14)
[2016-10-01] MEDS: LORAZEPAM 0.5 MG TAB PO PRN ×2 (02:06→14:14)
[2016-10-01] MEDS: LEVOTHYROXINE 125 MCG TAB PO SCH (05:33)
[2016-10-01] MEDS: MULTIVITAMINS/MINERALS TAB PO SCH (08:35)
[2016-10-01] MEDS: THIAMINE 100 MG TAB PO SCH (08:38)
[2016-10-01] MEDS: FOLIC ACID 1 MG TAB PO SCH (08:40)
--- NOTE | 2016-10-01 10:35 | PN ---
Date/Time of Note Date/Time of Note DATE: 10/01/16 TIME: 10:34 Assessment/Plan VTE Prophylaxis VTE Prophylaxis Intervention: other Lines/Catheters IV Catheter Type (from [facility]): [place] Urinary Cath still in place: No Assessment/Plan Chief Complaint/Hosp Course SUBJECTIVE: The patient is stable. No events overnight. No fevers, chills, nausea, vomiting. d/w case management her abdominal pain is improving wbc is now normal more anemic good uop unwilling to work with PT due to weakness and pain OBJECTIVE DATA: HEENT: Head is normocephalic. NECK: Supple. HEART: Regular rate. LUNGS: Showed diminished breath sounds at the bases. ABDOMEN: Soft, nontender to palpation. No rebound or guarding. EXTREMITIES: Negative for clubbing, cyanosis with no edema. DERMATOLOGIC: Clean. No rashes. MUSCULOSKELETAL: No joint effusion. NEUROLOGIC: No change in exam. 1. Nonoliguric acute kidney injury. Etiology was secondary to hemodynamics. The patient's renal function has improved with intravenous fluids. 2. Acute cholecystitis. Continue current antibiotic regimen. no surgery at this point. 3. anemia: iron depleted. will continue iv iron 4. Sepsis. Continue current antibiotic regimen. 6. History of opiate dependence. I had a long discussion with the patient regarding goals of care dc planning to [facility] in am under care of Dr Barr Problems: Exam/Review of Systems Vital Signs Vitals Vital Signs Date Time Temp Pulse Resp B/P Pulse Ox O2 Delivery O2 Flow Rate FiO2 10/01/16 08:35 97.9 68 18 156/81 100 Room Air Intake and Output 09/30/16 09/30/16 10/01/16 15:00 23:00 07:00 Intake Total 720 ml 500 ml Balance 720 ml 500 ml Results Result Diagram: 09/28/16 0910 09/28/16 0910 Medications Medications Current Medications Multivitamins/ Minerals (Theragran-M) 1 tab DAILY PO Last administered on 08:35; Admin Dose 1 TAB; Start 09/17/16 at 09:00 Acetaminophen (Tylenol Tab) 650 mg Q6H PRN PO PAIN LEVEL 1-3 OR FEVER Last administered on 09/22/16 09:24; Admin Dose 650 MG; Start 09/16/16 at 14:30 Miscellaneous Information Patients own medicat... BID@ XX ; Start 09/16/16 at 16:26 Thiamine HCl (Vitamin B1) 500 mg BID PO Last administered on 10/01/16 08:38; Admin Dose 500 MG; Start 09/18/16 at 16:01 Folic Acid (Folic Acid) 1 mg DAILY PO Last administered on 10/01/16 08:40; Admin Dose 1 MG; Start 09/18/16 at 16:00 Acetaminophen/ Hydrocodone Bitart ([place] (5/325)) 1 tab Q3H PRN PO PAIN Last administered on 10/01/16 02:06; Admin Dose 1 TAB; Start 09/19/16 at 16:00 Lorazepam (Ativan) 0.5 mg Q6H PRN PO ANXIETY Last administered on 10/01/16 02: 06; Admin Dose 0.5 MG; Start 09/27/16 at 15:30 Hydralazine HCl (Apresoline) 10 mg Q4H PRN IV ELEVATED BLOOD PRESSURE Last administered on 09/30/16 20:01; Admin Dose 10 MG; Start 09/30/16 at 20:00; Status Future Hold Miscellaneous Medication (Bystolic) 10 mg DAILY PO Last administered on 05:33; Admin Dose 10 MG; Start 10/01/16 at 02:00 Losartan Potassium (Cozaar) 100 mg DAILY PO Last administered on 10/01/16 08: 38; Admin Dose 100 MG; Start 10/01/16 at 02:00 ESME FISHER DO Oct 01, 2016 10:35
--- NOTE | 2016-10-01 11:29 | PDOCDIS ---
Discharge Instructions DIAGNOSIS Discharge Diagnosis Acute renal failure Cholecystitis Acute encephelopathy CONDITION Patient Condition: Good HOME CARE INSTRUCTIONS: Diet Instructions: RegularSpecial Diet: Renal ACTIVITY: Activity Restrictions: No Restrictions FOLLOW UP/APPOINTMENTS Follow-up Plan Follow up with your primary care provider in the coming 1-2 weeks We have stopped you home blood pressure medications as these likely were the cause of you acute kidney injury which has now resolved. Your blood pressure has been adequately controlled here, but you should discuss further care with your primary doctor If you develop recurrence of abdmoinal pain, or other concerning symptoms, seek medical care TAZ BRANDT MD Oct 01, 2016 11:29
--- NOTE | 2016-10-01 15:02 | DS ---
Date/Time of Note Date/Time of Note DATE: 10/01/16 TIME: 14:49 Discharge Summary Admission/Discharge Info Admit Date/Time Sep 16, 2016 at 14:03 Discharge Date/Time Discharge Diagnosis Acute renal failure Cholecystitis Acute encephelopathy Patient Condition: Good Hx of Present Illness This is a 66-year-old female with history of chronic kidney disease, chronic pain on lower back, hypothyroidism, hypertension, suspect depression, who came to [facility] after reportedly being found with altered mentation. Patient reportedly lives at a living assisted facility and was found to be crawling on the floor in her hallway of her apartment complex. There is reported patient was taking Union for her pain and reportedly patient had not been eating for several days. we did interview the patient stated that she had been feeling sick the day prior to admission. She went to her primary care provider and was told she had a bladder infection. Patient did state that she was given antibiotics but had not taken it. On the day of admission patient reportedly felt dizzy and worse with subjective reports of chest pain and shortness of breath. She did report sitting down on her hallway but denied any loss of consciousness. She states that she was able to get up and as such when she was found was brought to [facility] for further evaluation. On arrival patient was found to have large amount of medications and it is questionable whether patient has been compliant with her medications. She reports having chronic pain on her back. No reports of suicidal ideation. On examination she did have blood work drawn that did show her to be slightly anemic with hemoglobin of 9.6 hematocrit 20.3. Additionally she had basic metabolic panel done that did show her to have a sodium of 125 and potassium of 6.2 and BUN of 81 and a creatinine of 6.25. She also had a creatinine kinase of 275. Initial troponin was noted at 0.012. Renal ultrasound showed no definite abnormalities and brain CT scan of her head showed no acute intracranial hemorrhage or infarction or mass-effect. Patient is verbal communication but she is slightly lethargic. Chest x-ray also revealed her to have no evidence of acute cardio pulmonary disease process. She remained afebrile as well. Urinalysis on examination did show her to have positive leukocyte esterase test suspect for UTI. Currently the patient appears more awake however she still remains lethargic. She is responsive to verbal response. She does report less pain at this time. We will evaluate her for the aformentiond issues. Hospital Course The patient was found to be in renal faiulre on admission with creatinine of 6. Her home meds of anti-hypertensives and diuretics were held and she was given IV fluids. Her CARLOS resolved. She was found to have acute encephelopathy on admission. This also gradually resolved with normalization of her electrolytes and holding of her home medications. She developed abdominal pain and was found to have acute cholecystitis. General surgery was consulted who declined intervention. She recieved a course of antitbitoics and her symptoms resolved She became physically deconditioned during her admission and worked with PT/OT. She is being discharged to subacute rehab for further physical therapy. She was encouraged to hold her home BP meds and diuretics given her presentation with CARLOS. BP was reasonably controlled off of meds while here Home Meds Reported Medications Levothyroxine Sodium* (Levothyroxine Sodium*) 125 Mcg Tablet, 125 MCG PO BEFORE BREAKFAST, #30 TAB 09/16/16 Discontinued Reported Medications Gabapentin* (Gabapentin*) 300 Mg Capsule, 300 MG PO BID, #60 CAP 09/16/16 Topiramate* (Topiramate*) 50 Mg Tablet, 50 MG PO QHS, TAB 09/16/16 Omeprazole* (Omeprazole*) 40 Mg Capsule.dr, 40 MG PO DAILY, #30 CAP 09/16/16 Ergocalciferol (Vitamin D2) (VITAMIN D2) 50,000 Unit Capsule, 53252 UNIT PO Q7D , CAP 09/16/16 Multivitamin with Minerals (Multivitamins with Minerals) 1 Each Tablet, 1 EACH PO DAILY, TAB 09/16/16 Ferrous Sulfate* (Ferrous Sulfate*) 325 Mg Tabec, 325 MG PO DAILY, TAB 09/16/16 Docusate Sodium* (Colace*) 250 Mg Capsule, 250 MG PO DAILY, #30 CAP 09/16/16 Clonidine Patch (CLONIDINE PATCH) 0.2 Mg/24 Hr Patch, 1 PATCH.WK TD Q7D, #4 PATCH.WK 09/16/16 Metolazone* (Metolazone*) 5 Mg Tablet, 2.5 MG PO [id number], TAB EVERY OTHER DAY 09/16/16 Nebivolol Hcl* (Bystolic*) 10 Mg Tablet, 10 MG PO DAILY, #30 TAB 09/16/16 Nitrofurantoin Macrocrystal* (Macrodantin*) 50 Mg Cap, 50 MG PO DAILY, CAP 09/16/16 Furosemide* (Furosemide*) 40 Mg Tablet, 40 MG PO DAILY, TAB 09/16/16 Lorazepam* (Lorazepam*) 1 Mg Tablet, 1 MG PO TID Y for ANXIETY, #90 TAB 09/16/16 Hydrochlorothiazide* (Hydrochlorothiazide*) 50 Mg Tab, 50 MG PO DAILY, #30 TAB 09/16/16 Diazepam* (Diazepam*) 5 Mg Tablet, 5 MG PO TID, TAB 09/16/16 Spironolactone* (Aldactone*) 25 Mg Tablet, 25 MG PO DAILY, #30 TAB 09/16/16 Pramipexole* (Mirapex*) 0.5 Mg Tablet, 0.5 MG PO DAILY, TAB 09/16/16 Potassium Chloride* (Potassium Chloride*) 20 Meq Tablet.er, 20 MEQ PO DAILY, TAB.SA 09/16/16 Clonidine Hcl* (Clonidine Hcl*) 0.1 Mg Tab, 0.1 MG PO TID Y for NEEDED, TAB FOR SBP<165 09/16/16 Olmesartan Medoxomil (Benicar) 40 Mg Tablet, 40 MG PO DAILY, #30 TAB 09/16/16 Escitalopram Oxalate* (Lexapro*) 20 Mg Tablet, 20 MG PO DAILY, #30 TAB 09/16/16 Primary Care Provider MD KARLY Reid,TAZ Koo MD Oct 01, 2016 14:59
[2016-10-01] MEDS ORDERED: NEBIVOLOL 5 MG TAB PO STA (15:26)
== END 2016-10-01 16:00 | DRG 917 ==
LOC: E/R 10:14 → TEL 14:03 → MS2 09-19 14:05
PROVIDERS: ADMIT Internal Medicine; ATTEND Internal Medicine
DX: T40.2X1A Poisoning by other opioids, accidental (unintentional), initial encounter (principal); G92 Toxic encephalopathy; A41.9 Sepsis, unspecified organism; N17.9 Acute kidney failure, unspecified; K81.0 Acute cholecystitis; N18.4 Chronic kidney disease, stage 4 (severe); E87.1 Hypo-osmolality and hyponatremia; N39.0 Urinary tract infection, site not specified; T76.11XA Adult physical abuse, suspected, initial encounter; E66.01 Morbid (severe) obesity due to excess calories; E87.5 Hyperkalemia; E83.42 Hypomagnesemia; G89.4 Chronic pain syndrome; D50.9 Iron deficiency anemia, unspecified; F41.9 Anxiety disorder, unspecified; I12.9 Hypertensive chronic kidney disease with stage 1 through stage 4 chronic kidney disease, or unspecified chronic kidney disease; R53.83 Other fatigue; Y92.099 Unspecified place in other non-institutional residence as the place of occurrence of the external cause; Z68.37 Body mass index [BMI] 37.0-37.9, adult
CPT/HCPCS: 36415; 70450; 71010; 74176; 76775; 80048; 80053; 80061; 80076; 80306; 80307; 81001; 81003; 82043; 82550; 82553; 82607; 82728; 83036; 83540; 83735; 83930; 83935; 84100; 84155; 84300; 84436; 84443; 84479; 84484; 84560; 85025; 85045; 85610; 85730; 86592; 86703; 86803; 87040; 87086; 93005; 93306; 94640; 94664; 96374; 96375; 97110; 97116; 97163; 97530; J1940; J0360; J0696; J2405; J2543; J2916; J3411; J3475; J7030; J7050

== ENCOUNTER 2017-01-13 17:04 | Inpatient (IN) | payer MEDICARE, OTHER ==
[~2017-01-13] VITALS: Ht 162.6 cm; Wt 100.3 kg
[~2017-01-13 17:04] MED LIST changes: -BENAZEPRIL; -BP MED; -GUAI600T PO; -HTN MED; +LEVO125T75 PO; -PAIN MED; -TRAM50TA2 PO
[2017-01-13] MEDS ORDERED: SOD CHLORIDE 0.9% 1,000 ML IV STA ×3 (17:08→22:42)
[2017-01-13] MEDS ORDERED: PANTOPRAZOLE 40 MG INJ IV STA (17:08)
[2017-01-13] MEDS ORDERED: CLON-379 PO (17:36)
[2017-01-13] MEDS ORDERED: FER325 PO (17:37)
[2017-01-13] MEDS ORDERED: ERGO500037 PO (17:37)
[2017-01-13] MEDS ORDERED: DOCU250C68 PO (17:38)
[2017-01-13] MEDS ORDERED: SPIR25TA PO (17:38)
[2017-01-13] MEDS ORDERED: HYDR50TA3 PO (17:39)
[2017-01-13] MEDS ORDERED: FURO40TA4 PO (17:39)
[2017-01-13] MEDS ORDERED: POTA20TA15 PO (17:40)
[2017-01-13] MEDS ORDERED: GABA-526 PO (17:40)
[2017-01-13] MEDS ORDERED: ZOLP5TAB7 PO (17:40)
[2017-01-13] MEDS ORDERED: TOPI50TA86 PO (17:41)
[2017-01-13] MEDS ORDERED: OMEP40CA6 PO (17:42)
[2017-01-13] MEDS ORDERED: PRAM0.5T PO (17:42)
[2017-01-13] MEDS ORDERED: ESCI20TA PO (17:43)
[2017-01-13] MEDS ORDERED: OLME40TA14 PO (17:43)
[2017-01-13] MEDS ORDERED: NEBI10TA2 PO (17:44)
--- NOTE | 2017-01-13 17:45 | RADRPT ---
PROCEDURE: XR Chest. CLINICAL INDICATION: Upper GI bleed TECHNIQUE: A single AP view of the chest was obtained. COMPARISON: CHEST 09/21/2016; CHEST 09/17/2016; CHEST 09/16/2016; JARRED CHEST 04/16/2016; JARRED CHEST 04/16/2016 FINDINGS: No focal airspace opacification, pleural effusion or pneumothorax is seen. The cardiomediastinal si lhouette is within normal limits for size. Calcifications are seen within the aortic arch. The osse ous structures are unremarkable. IMPRESSION: 1. No radiographic evidence of acute cardiopulmonary disease. 2. Aortic atherosclerosis. RPTAT: HH .Nayeli Cannon MD, MD Date Time Electronically viewed and signed by .Nayeli Cannno MD, on 01/13/2017 17:45 .G/
[2017-01-13 17:55] LABS: ABNORMAL IP MESSAGE 1; HEMATOCRIT 17.9 % (37.0-47.0); MEAN CORPUSCULAR HEMOGLOBIN 30.8 pg (29.0-33.0); MEAN CORPUSCULAR HGB CONC 36.9 g/dl (32.0-37.0); MEAN CORPUSCULAR VOLUME 83.6 fl (82.0-101.0); MEAN PLATELET VOLUME 9.3 fl (7.4-10.4); PLATELET COUNT 237 10^3/UL (140-415); RED BLOOD COUNT 2.14 10^6/ul (4.20-5.40); RED CELL DISTRIBUTION WIDTH 14.9 % (11.5-14.5)
[2017-01-13 17:56] LABS: POSITIVE DIFF @See below
[2017-01-13 17:58] LABS: HEMOGLOBIN 6.6 g/dl (12.0-16.0)
[2017-01-13 18:10] LABS: PROTIME 13.3 Sec (11.9-14.9)
[2017-01-13 18:11] LABS: PARTIAL THROMBOPLASTIN TIME 31.5 Sec (25.0-35.0)
[2017-01-13 18:16] LABS: ANISOCYTOSIS 2+ (0-0); MICROCYTOSIS 1+ (0-0); MONOCYTES % (M) 2 % (0-11); PLATELET ESTIMATE NORMAL; POLYCHROMASIA 1+ (0-0)
[2017-01-13 18:19] LABS: ALANINE AMINOTRANSFERASE 46 IU/L (13-69); ALBUMIN 3.2 g/dl (3.3-4.9); ALBUMIN/GLOBULIN RATIO 1.18; ALKALINE PHOSPHATASE 35 IU/L (42-121); AMYLASE 64 U/L (11-123); ANION GAP 17 (8-16); ASPARTATE AMINO TRANSFERASE 45 IU/L (15-46); BLOOD UREA NITROGEN 59 mg/dl (7-20); CALCIUM 8.5 mg/dl (8.4-10.2); CARBON DIOXIDE 22 mmol/L (21-31); CHLORIDE 78 mmol/L (97-110); CREATININE 2.03 mg/dl (0.44-1.00); GLUCOSE 117 mg/dl (70-220); POTASSIUM 4.9 mmol/L (3.5-5.1); TOTAL PROTEIN 5.9 g/dl (6.1-8.1)
[2017-01-13 18:44] LABS: ETHANOL < 10.0 mg/dl; TROPONIN-I < 0.012 ng/ml (0.00-0.12)
[2017-01-13 18:45] LABS: SODIUM 112 mmol/L (135-144)
[2017-01-13] MEDS ORDERED: MAGNESIUM SULFATE 2 GM, MULTIVITAMINS 10 ML, THIAMINE 100 MG, FOLIC ACID 1 MG in SOD CH... IV STA (19:13)
--- NOTE | 2017-01-13 19:22 | ERD ---
ER Documentation Chief Complaint Chief Complaint Patient JR with complaint of GI bleed NO iv Access HPI This is a 66-year-old female with a known history of alcohol abuse, depression, hypertension who presents to the emergency department from her assisted living facility for melanotic stools over the past 2 days. Patient states she has felt very weak but denies a headache or chest pain and no shortness of breath. She has had no fevers no shaking or chills. She denies any hemoptysis and no hematemesis. She states she has never had this happen in the past. She stated her last consumption of alcohol was 3 days ago when she denies any history of alcohol withdrawal seizures. She has no recent hospitalizations and has a history of chronic urinary tract infections but denies any frequency urgency or dysuria at this time. ROS All systems reviewed and are negative except as per history of present illness. Medications Home Meds Reported Medications Nebivolol Hcl* (Bystolic*) 10 Mg Tablet, 10 MG PO DAILY, #30 TAB 01/13/17 Escitalopram Oxalate* (Lexapro*) 20 Mg Tablet, 20 MG PO DAILY, #30 TAB 01/13/17 Olmesartan Medoxomil (Benicar) 40 Mg Tablet, 40 MG PO DAILY, #30 TAB 01/13/17 Omeprazole* (Omeprazole*) 40 Mg Capsule.dr, 40 MG PO DAILY, #30 CAP 01/13/17 Pramipexole* (Pramipexole*) 0.5 Mg Tablet, 0.5 MG PO HS, TAB 01/13/17 Topiramate* (Topiramate*) 50 Mg Tablet, 50 MG PO DAILY, TAB 01/13/17 Potassium Chloride* (K-Dur*) 20 Meq Tab.prt.sr, 20 MEQ PO DAILY, TAB.SA 01/13/17 Gabapentin* (Gabapentin*) 600 Mg Tablet, 600 MG PO BID, #60 TAB 01/13/17 Zolpidem Tartrate* (Zolpidem Tartrate*) 5 Mg Tablet, 5 MG PO QHS Y for INSOMNIA , #30 TAB 01/13/17 Furosemide* (Furosemide*) 40 Mg Tablet, 40 MG PO DAILY, TAB 01/13/17 Hydrochlorothiazide* (Hydrochlorothiazide*) 50 Mg Tab, 50 MG PO DAILY, #30 TAB 01/13/17 Spironolactone* (Aldactone*) 25 Mg Tablet, 25 MG PO DAILY, #30 TAB 01/13/17 Docusate Sodium* (Dok*) 250 Mg Capsule, 250 MG PO DAILY, #30 CAP 01/13/17 Ergocalciferol (Vitamin D2) (VITAMIN D2) 50,000 Unit Capsule, 00154 UNIT PO EVERY 7 DAYS, CAP 01/13/17 Ferrous Sulfate* (Ferrous Sulfate*) 325 Mg Tabec, 325 MG PO DAILY, TAB 01/13/17 Clonidine Hcl* (Clonidine Hcl*) 0.1 Mg Tab, 0.1 MG PO TID Y for ELEVATED BLOOD PRESSURE, TAB 01/13/17 Levothyroxine Sodium* (Levothyroxine Sodium*) 125 Mcg Tablet, 125 MCG PO BEFORE BREAKFAST, #30 TAB 09/16/16 Allergies Allergies: Coded Allergies: No Known Allergy (Unverified , 01/13/17) PMhx/Soc History of Surgery: No Anesthesia Reaction: No Hx Neurological Disorder: No Hx Respiratory Disorders: No Hx Cardiac Disorders: No Hx Psychiatric Problems: No Hx Miscellaneous Medical Probl: Yes (Anemia) Hx Alcohol Use: No Hx Substance Use: No Hx Tobacco Use: No Smoking Status: Never smoker Physical Exam Vitals Vital Signs Date Time Temp Pulse Resp B/P Pulse Ox O2 Delivery O2 Flow Rate FiO2 01/13/17 21:30 98.0 88 14 101/67 98 Room Air 01/13/17 21:19 84 14 100/60 98 Room Air 01/13/17 20:45 77 15 85/55 98 Room Air 01/13/17 19:45 75 14 92/62 98 Room Air 01/13/17 18:45 72 17 92/67 97 Room Air 01/13/17 18:05 98.3 88 20 91/57 100 Room Air 01/13/17 17:05 98.1 88 20 92/77 100 01/13/17 17:05 Nasal Cannula Physical Exam Constitutional:Well-developed. Well-nourished. HEENT:Normocephalic. Atraumatic.Pupils were equal round reactive to light. Moist mucous membranes.No tonsillar exudates. Conjunctival pallor. Neck: No nuchal rigidity. No lymphadenopathy. No posterior cervical spine tenderness or step-offs. Respiratory: Not using accessory muscles of respiration.Lungs were clear to auscultation bilaterally. No rhonchi. No rales. No wheezing. Cardiovascular: Regular rate regular rhythm.No murmurs. No rubs were appreciated.S1, S2 normal. Distal pulses are palpable 2+ bilaterally. GI: Abdomen was soft. Nontender. Non Distended. No pulsatile abdominal masses or bruits. No rebound. No guarding. Bowel sounds were present and normal. Fecal occult blood test was positive with no gross blood per rectum and no hemorrhoids. Muscle skeletal: Full range of motion of both the upper and lower extremities bilaterally.Normal muscle tone.No assymetrical calf tenderness or swelling. Skin: No petechia, no purpura. No lesions on the palms or the soles of the feet. No maculopapular rash. NEURO: Patient was alert, awake, orientated x3.No facial droop. Gait not observed as patient was too weak to ambulate.Speech had regular rate and rhythm. No focal neurological deficits. Result Diagram: 01/13/17 1745 01/13/17 1745 Results 24 hrs Laboratory Tests Test 01/13/17 17:45 01/13/17 21:20 White Blood Count 11.010^3/ul Red Blood Count 2.1410^6/ul Hemoglobin 6.6g/dl Hematocrit 17.9% Mean Corpuscular Volume 83.6fl Mean Corpuscular Hemoglobin 30.8pg Mean Corpuscular Hemoglobin Concent 36.9g/dl Red Cell Distribution Width 14.9% Platelet Count 33196^3/UL Mean Platelet Volume 9.3fl Neutrophils % % Segmented Neutrophils % (Manual) 80% Lymphocytes % % Lymphocytes % (Manual) 18% Monocytes % % Monocytes % (Manual) 2% Eosinophils % % Basophils % % Nucleated Red Blood Cells % 0.0/100WBC Neutrophils # 10^3/ul Absolute Lymphocytes (Manual) 1.910^3/ul Lymphocytes # 10^3/ul Monocytes # 10^3/ul Absolute Monocytes (Manual) 0.210^3/ul Eosinophils # 10^3/ul Basophils # 10^3/ul Nucleated Red Blood Cells # 10^3/ul Platelet Estimate NORMAL Polychromasia 1+ Anisocytosis 2+ Microcytosis 1+ Prothrombin Time 13.3Sec Prothrombin Time Ratio 1.0 INR International Normalized Ratio 1.00 Activated Partial Thromboplast Time 31.5Sec Sodium Level 112mmol/L Potassium Level 4.9mmol/L Chloride Level 78mmol/L Carbon Dioxide Level 22mmol/L Anion Gap 17 Blood Urea Nitrogen 59mg/dl Creatinine 2.03mg/dl Glucose Level 117mg/dl Calcium Level 8.5mg/dl Total Bilirubin 0.0mg/dl Direct Bilirubin 0.00mg/dl Indirect Bilirubin 0.0mg/dl Aspartate Amino Transf (AST/SGOT) 45IU/L Alanine Aminotransferase (ALT/SGPT) 46IU/L Alkaline Phosphatase 35IU/L Troponin I < 0.012ng/ml Total Protein 5.9g/dl Albumin 3.2g/dl Globulin 2.70g/dl Albumin/Globulin Ratio 1.18 Amylase Level 64U/L Lipase 504U/L Ethyl Alcohol Level < 10.0mg/dl Urine Color YELLOW Urine Clarity SLIGHTLY CLOUDY Urine pH 5.0 Urine Specific Brush 1.005 Urine Ketones NEGATIVEmg/dL Urine Nitrite POSITIVEmg/dL Urine Bilirubin NEGATIVEmg/dL Urine Urobilinogen NEGATIVEmg/dL Urine Leukocyte Esterase 3+Abhinav/ul Urine Microscopic RBC 3/HPF Urine Microscopic WBC 20/HPF Urine Bacteria MANY/HPF Urine Hemoglobin 2+mg/dL Urine Glucose NEGATIVEmg/dL Urine Total Protein NEGATIVEmg/dl Current Medications Medications (Trade) Dose Ordered Sig/Bettye Route PRN Reason Start Time Stop Time Status Last Admin Dose Admin Sodium Chloride (NS) 1,000 ml @ 1,000 mls/hr Q1H STAT IV 01/13/17 17:08 01/13/17 18:07 DC 01/13/17 18:20 Pantoprazole 40 mg 40 mg ONCE STAT IV 01/13/17 17:08 01/13/17 17:28 DC 01/13/17 18:56 Magnesium Sulfate/ Multivitamins/ Thiamine HCl/ Folic Acid/Sodium Chloride (Magnesium Sulfate/Mvi Adult/ Vitamin B1/Folic Acid/NS) 1,015.2 ml @ 500 mls/ hr Q2H2M STAT IV 01/13/17 19:13 01/13/17 21:14 DC 01/13/17 21:47 Ondansetron HCl (Zofran Inj) 4 mg ER BRIDGE PRN IV NAUSEA AND/OR VOMITING 01/13/17 20:00 01/14/17 19:59 Acetaminophen 650 mg 650 mg ER BRIDGE PRN PO MILD PAIN/FEVER 12/3/17 20:00 01/14/17 19:59 Sodium Chloride 1,000 ml @ 1,000 mls/hr Q1H STAT IV 01/13/17 21:03 01/13/17 22:02 DC 01/13/17 21:00 Sodium Chloride 1,000 ml @ 1,000 mls/hr Q1H STAT IV 01/13/17 22:42 01/13/17 23:41 Ceftriaxone Sodium (Rocephin) 50 ml @ 100 mls/hr ONCE STAT IVPB 01/13/17 23:37 01/14/17 00:06 UNV Procedures/MDM The patient presented to the emergency department with a presentation of gastrointestinal bleeding melanotic stools. My differential diagnosis included but was not limited to peptic ulcer disease, gastric or esophageal erosions, gastritis, esophageal varices, Lawanda-Paz tear, tumor or arteriovenous malformations. According to EMS the patient has a history of alcohol abuse. Her serum ethanol was normal and to prevent alcohol withdrawal she was given a banana bag in the emergency department. 12 Lead EKG tracing ordered and reviewed by myself showed: Normal sinus rhythm of 76 bpm and no arrhythmia. SC interval normal. QRS duration normal. No ST segment elevation No ST segment depression. No changes consistent with acute ischemia. I obtained a CT scan of the abdomen which was reviewed by myself and the radiologist and indicated the followin. Decompressed gallbladder with cholelithiasis and no definite evidence for acute cholecystitis on the current study. Consider HIDA Scan to further evaluate. 2. Small hiatal hernia 3. Mild sigmoid diverticulosis without evidence for acute diverticulitis or appendicitis. 4. Small bilateral kidneys and correlate with mild atrophy without evidence for hydroureteronephrosis . 5. Mild atherosclerotic vascular disease Patient had no tenderness in the right upper quadrant and therefore my clinical suspicion was low for cholecystitis. I obtained a CT scan without contrast due to the patient's acute renal failure with an elevated BUN of 59 and a creatinine of 2.03. The patient had a urinary tract infection blood cultures and urine cultures obtained and the patient was started on IV ceftriaxone. She had severe electrolyte normalities with hyponatremia. Serum sodium was 112 and corrected with IV fluids. She did not have any neurological symptoms at this time to suggest hypertonic saline. The patient was anemic with hemoglobin of 6.6. She was typed and crossed and consented to a blood transfusion. She was given 2 units of packed red blood cells. She was given IV Protonix. She did not experience any upper or lower gastrointestinal bleeding while in the emergency department. Will be admitted in serious condition to the ICU service under the care of the hospitalist. Critical Care: Time: 50 minutes Treatments/Evaluations: Close monitoring and treatment of unstable vital signs, cardiorespiratory, and neurologic status, while maintaining tight balance of fluid, respiratory, and cardiac interventions. Time does not include performing any of the above billable procedures. Departure Diagnosis: Primary Impression: Gastrointestinal bleeding GI bleed type/associated pathology: unspecified gastrointestinal hemorrhage type Qualified Code: K92.2 - Gastrointestinal hemorrhage, unspecified gastrointestinal hemorrhage type Additional Impressions: Anemia Anemia type: unspecified type Qualified Code: D64.9 - Anemia, unspecified type Acute hyponatremia UTI (urinary tract infection) Hematuria presence: without hematuria Condition: Serious FERNANDO GAITAN Jan 13, 2017 19:22
[2017-01-13] MEDS ORDERED: ONDANSETRON 4 MG INJ IV PRN (20:00)
[2017-01-13] MEDS ORDERED: ACETAMINOPHEN 325 MG TAB PO PRN (20:00)
--- NOTE | 2017-01-13 20:48 | RADRPT ---
PROCEDURE: CT abdomen and pelvis without contrast. CLINICAL INDICATION: Abdominal pain TECHNIQUE: CT scan of the abdomen and pelvis without contrast was performed on a [email or web address] CT scanner utilizing axial imaging from the lung bases through the pubis symphysis. The patient was sc anned without intravenous contrast. Sagittal and coronal reformatted images were made. The CTDIvol is 23.05 mGy and the DLP is 1334.21 mGycm. DICOM images are available. One of the following 3 dose reduction techniques were used during this CT examination: 1) Automated exposure control 2) Adjustment of the mA +/- kV according to patient size or 3) Use of iterative reconstruction technique COMPARISON: 09/19/[address] FINDINGS: The lung bases are clear. The heart size is normal. No pericardial or pleural effusion is present. Mild vascular calcifications are present of the aorta and the coronary arteries. A small hiatal hernia is noted. The visualized liver is normal in size and attenuation without focal lesions. The visualized spleen, pancreas, and stomach are normal. The gallbladder demonstrates chol elithiasis and is currently decompressed at this time. No evidence for intrahepatic or extra panic b iliary ductal dilatation is noted. The bilateral adrenal glands are normal. The bilateral kidneys are decreased in size and correlate w ith mild renal atrophy. without evidence for hydroureteronephrosis or nephroureterolithiasis. A small fat-containing umbilical hernia is again noted which measures approximately 1.9 cm. The visualized bowel is nonobstructive. Mild sigmoid diverticulosis is present without evidence for acute diverticulitis, or appendicitis. The visualized aorta demonstrates vascular calcifications without evidence for aneurysmal dilatation . No evidence for pathologic lymphadenopathy is present. No pelvic mass, lymphadenopathy, or free fluid is seen. A well distended urinary bladder is present . The uterus and bilateral adnexa are normal. The surrounding osseous structures are remarkable for generalized osteopenia with degenerative heredia es of the spine and the bilateral sacroiliac joints.. IMPRESSION: 1. Decompressed gallbladder with cholelithiasis and no definite evidence for acute cholecystitis on the current study. Consider HIDA Scan to further evaluate. 2. Small hiatal hernia 3. Mild sigmoid diverticulosis without evidence for acute diverticulitis or appendicitis. 4. Small bilateral kidneys and correlate with mild atrophy without evidence for hydroureteronephros is . 5. Mild atherosclerotic vascular disease RPTAT: HDC .Arti Garcia MD, MD Date Time Electronically viewed and signed by .Arti Garcia MD, MD on 01/13/2017 20:48 .C/
[2017-01-13 22:14] LABS: ADD UMIC YES; UR ASCORBIC ACID NEGATIVE (NEGATIVE); UR BACTERIA MANY /HPF (NONE SEEN); UR BILIRUBIN (Dip) NEGATIVE (NEGATIVE); UR BLOOD (Dip) 2+ mg/dL (NEGATIVE); UR CLARITY SLIGHTLY CLOUDY (CLEAR); UR COLOR YELLOW (YELLOW); UR GLUCOSE (Dip) NEGATIVE (NEGATIVE); UR KETONES (Dip) NEGATIVE (NEGATIVE); UR LEUKOCYTE ESTERASE (Dip) 3+ Leu/ul (NEGATIVE); UR NITRITE (Dip) POSITIVE (NEGATIVE); UR RBC 3 /HPF (0-5); UR SPECIFIC GRAVITY (Dip) 1.005 (1.003-1.030); UR TOTAL PROTEIN (Dip) NEGATIVE (NEGATIVE); UR UROBILINOGEN (Dip) NEGATIVE (NEGATIVE)
[2017-01-13] MEDS ORDERED: CEFTRIAXONE 1 GM/50 ML (PMX) 50 ML IVPB STA (23:37)
[2017-01-14] VITALS (45 sets, daily range): BP systolic 76–133; BP diastolic 45–69; PULSE 63–99; RESP 9–20; TEMP 98.2; Ht 162.6 cm; Wt 100.3 kg
[2017-01-14] MEDS ORDERED: FENTAnyl 50 MCG/ML VIAL IV ONE
[2017-01-14 00:25] LABS: ABNORMAL IP MESSAGE 1; HEMATOCRIT 20.4 % (37.0-47.0); HEMOGLOBIN 7.5 g/dl (12.0-16.0); MEAN CORPUSCULAR HEMOGLOBIN 31.1 pg (29.0-33.0); MEAN CORPUSCULAR HGB CONC 36.8 g/dl (32.0-37.0); MEAN CORPUSCULAR VOLUME 84.6 fl (82.0-101.0); MEAN PLATELET VOLUME 9.3 fl (7.4-10.4); PLATELET COUNT 169 10^3/UL (140-415); RED BLOOD COUNT 2.41 10^6/ul (4.20-5.40); RED CELL DISTRIBUTION WIDTH 14.6 % (11.5-14.5); WHITE BLOOD COUNT 8.2 10^3/ul (4.8-10.8)
[2017-01-14 00:30] LABS: POSITIVE DIFF @See below
[2017-01-14 00:45] LABS: ALBUMIN 2.8 g/dl (3.3-4.9); ALBUMIN/GLOBULIN RATIO 0.96; CALCIUM 8.1 mg/dl (8.4-10.2); CREATININE 1.77 mg/dl (0.44-1.00); POTASSIUM 4.7 mmol/L (3.5-5.1); TOTAL PROTEIN 5.7 g/dl (6.1-8.1)
[2017-01-14 01:39] LABS: ANISOCYTOSIS 2+ (0-0); BASOPHILS % (M) 1 % (0-2); EOSINOPHILS % (M) 2 % (0-7); METAMYELOCYTES %M 1 % (0-0); MICROCYTOSIS 2+ (0-0); MONOCYTES % (M) 8 % (0-11); MYELOCYTES % (M) 2 % (0-0); PLATELET ESTIMATE NORMAL; POIKILOCYTOSIS 1+ (0-0); POLYCHROMASIA 3+ (0-0); PROMYELOCYTES #M 0.1 10^3/ul (0-0); PROMYELOCYTES % (M) 2 % (0-0)
[2017-01-14] MEDS ORDERED: ZOLPIDEM 5 MG TAB PO PRN (02:00)
[2017-01-14] MEDS ORDERED: NORepinephrine 8MG/250 ML (PMX 250 ML IV SCH (03:59)
[2017-01-14 06:14] LABS: ABNORMAL IP MESSAGE 1; HEMATOCRIT 23.7 % (37.0-47.0); HEMOGLOBIN 8.5 g/dl (12.0-16.0); MEAN CORPUSCULAR HEMOGLOBIN 30.6 pg (29.0-33.0); MEAN CORPUSCULAR HGB CONC 35.9 g/dl (32.0-37.0); MEAN CORPUSCULAR VOLUME 85.3 fl (82.0-101.0); MEAN PLATELET VOLUME 9.3 fl (7.4-10.4); PLATELET COUNT 193 10^3/UL (140-415); RED BLOOD COUNT 2.78 10^6/ul (4.20-5.40); RED CELL DISTRIBUTION WIDTH 14.6 % (11.5-14.5); WHITE BLOOD COUNT 8.3 10^3/ul (4.8-10.8)
[2017-01-14] MEDS: PANTOPRAZOLE 40 MG INJ IV SCH ×2 (06:23→17:39)
[2017-01-14] MEDS: LEVOTHYROXINE 125 MCG TAB PO SCH (06:23)
[2017-01-14 06:25] LABS: POSITIVE DIFF @See below
[2017-01-14 06:45] LABS: ALBUMIN 2.7 g/dl (3.3-4.9); ALBUMIN/GLOBULIN RATIO 0.93; BILIRUBIN,INDIRECT 0.9 mg/dl (0-1.1); BILIRUBIN,TOTAL 0.9 mg/dl (0.2-1.3); CALCIUM 8.7 mg/dl (8.4-10.2); CREATININE 1.66 mg/dl (0.44-1.00); POTASSIUM 4.7 mmol/L (3.5-5.1); TOTAL PROTEIN 5.6 g/dl (6.1-8.1)
[2017-01-14 06:48] LABS: IRON 258 ug/dl (35-150)
[2017-01-14 06:57] LABS: TOTAL IRON BINDING CAPACITY 310 ug/dl (241-421)
--- NOTE | 2017-01-14 07:05 | HP ---
Date/Time of Note Date/Time of Note DATE: 01/14/17 TIME: 06:34 Assessment/Plan VTE Prophylaxis VTE Prophylaxis Intervention: SCD's Lines/Catheters IV Catheter Type (from [facility]): Peripheral IV Urinary Cath still in place: Yes Assessment/Plan Chief Complaint/Hosp Course This is a 58-year-old female who was originally admitted to the telemetry floor however she was subsequently transferred to the ICU for: #1 Suspected GI bleed: Patient initially presented with a hemoglobin of 6.6. She was given a blood transfusion in the ED and 2 units of PRBCs were ordered. we will check iron stores. Keep patient n.p.o. except meds will check hemoglobin H&H every 6 hours. Will put patient on Protonix IV twice daily. Will consult GI. #2 Shock, likely hypovolemic: Likely multifactorial with volume depletion and/ or possibly early sepsis and her p.o. poorly p.o. intake . Patient appears severely dry. She is showing signs of skin tenting. She was given aggressive fluid hydration in the ED. However patient's blood pressure was not improving therefore she was upgraded to the ICU where she was started on levophed. She is currently afebrile with normal white blood cell count. However she does have a UTI this possibly could be early sepsis. We will continue to monitor this in the ICU. She is already on IV antibiotics for the UTI. #3 severe hyponatremia: Likely multifactorial secondary to volume depletion as well as diuretics and she is on thiazide and Lasix. The current time will hold diuretics. She was given aggressive fluid hydration with normal saline in the ED. her initial serum sodium was 112 at approximately after 6 hours later roxane to 119. At the current time I will hold any further fluids at this time. Will continue a blood transfusion. Will repeat a CMP to assess her sodium. Also monitor her urine output. Will adjust fluids as indicated. This likely appears to be a chronic issue will need to correct it slowly. Will check urine studies and urine osmoles. #4 acute on chronic kidney injury: Patient's creatinine is 2.03 during her last admission in September it was 0.77 on discharge. Prerenal in nature and likely multifactorial. At the current time will check renal ultrasound. Will check urine studies such as urine osmole's and urine sodium. Will avoid nephrotoxic agents. Will consult nephrology. #5 hypothyroidism: Check TSH level continue patient's home medications #6 hypertension: At the current time will hold patient's blood pressure medications secondary to #1 and 2. We will likely also need to adjust her blood pressure medications secondary to her hyponatremia as she is on hydrochlorothiazide and Lasix. #7 depression: We will resume patient's home medications #8 history of alcohol abuse: Patient denies any recent alcohol use however ED physician did mention alcohol use. There is also mention of alcohol abuse in her chart. At the current time we will check a urine drug screen, will check ethanol level. As needed Ativan is as indicated. #9 urinary tract infection: At the current time will start the patient on ceftriaxone 1 g every 24 hours. Await urine culture. #10 DVT GI prophylaxis: SCDs, Protonix IV Further treatment strategy will be implemented as per the clinical course Greater than 60 minutes of critical care time was spent on the care and management of this patient Problems: HPI/ROS Admit Date/Time Admit Date/Time Jan 13, 2017 at 19:49 Hx of Present Illness Chief complaint: This is a 66-year-old female with a known history of alcohol abuse, depression, hypertension who presents to the emergency department from her assisted living facility for melanotic stools over the past 2 days. Patient states she has felt very weak but denies a headache or chest pain and no shortness of breath. She has had no fevers no shaking or chills. She denies any hemoptysis and no hematemesis. She states she has never had this happen in the past. She stated her last consumption of alcohol was 3 days ago when she denies any history of alcohol withdrawal seizures. She has no recent hospitalizations and has a history of chronic urinary tract infections but denies any frequency urgency or dysuria at this time. He does have some suprapubic pain on palpation Allergies: NKDA Medications: See SUZANNE PINTO Const: As per HPI Eyes : No pain discharge or redness or change in visual acuity ENT: No pain, sore throat, congestion, congestion, dysphagia or discharge Respiratory: No shortness of breath, cough, sputum, wheezing, or pleuritic pain Cardiovascular: No chest pain, palpitation, PND, or edema GI : As per HPI Genitourinary: No dysuria, hematuria, flank pain , discharge or CVA tenderness Musculoskeletal: No joint pain, back pain, neck pain, restricted range of motion in neck or joints Skin: No rash, bruising or hives Neuro: No headache, dizziness, syncope, seizure, focal weakness Endocrine: No polyuria, polydipsia, temperature intolerance Psych: No hallucination, depression, anxiety or suicidal ideation PMH/Family/Social Past Medical History chronic kidney disease, chronic pain on lower back, hypothyroidism, hypertension , possible depression, Past Surgical History thyroidectomy, right breast tumor removal, appendectomy, L knee sx Family History Significant Family History: cancer (Colon cancer) Social History Alcohol Use: heavy Smoking Status: Former smoker Exam/Review of Systems Vital Signs Vitals Vital Signs Date Time Temp Pulse Resp B/P Pulse Ox O2 Delivery O2 Flow Rate FiO2 01/14/17 06:00 84 11 124/69 97 Room Air 01/14/17 05:00 98.0 Intake and Output 01/13/17 01/13/17 01/14/17 15:00 23:00 07:00 Intake Total 5.75 ml Output Total 400 ml Balance -394.25 ml Exam Exam General: Patient is lying in bed feeling cold covered in blankets, she is very slow to speak which apparently is her baseline HEENT: Atraumatic, normocephalic. The pupils are equal, round and reactive. Extraocular motor are intact, dry mucous membranes Neck: Supple with full range of motion. No rigidity or meningismus Chest: Nontender Lungs: Clear to auscultation bilaterally no crackles rales or wheezing Heart: Normal S1-S2, Regular rhythm and rate. Abdomen: Soft, tender to palpation of the suprapubic area, bowel sounds, Extremities: Normal to inspection, no edema no cyanosis Neurologic: Patient is alert and oriented 3, she has normal speech though it is very slow, cranial nerves II through XII intact, unable to assess gait secondary to patient's hypotension Skin: Tenting, dry skin Additional Comments PROCEDURE: CT abdomen and pelvis without contrast. CLINICAL INDICATION: Abdominal pain TECHNIQUE: CT scan of the abdomen and pelvis without contrast was performed on a enGreet CT scanner utilizing axial imaging from the lung bases through the pubis symphysis. The patient was scanned without intravenous contrast. Sagittal and coronal reformatted images were made. The CTDIvol is 23.05 mGy and the DLP is 1334.21 mGycm. DICOM images are available. One of the following 3 dose reduction techniques were used during this CT examination: 1) Automated exposure control 2) Adjustment of the mA +/- kV according to patient size or 3) Use of iterative reconstruction technique COMPARISON: 09/19/[address] FINDINGS: The lung bases are clear. The heart size is normal. No pericardial or pleural effusion is present. Mild vascular calcifications are present of the aorta and the coronary arteries. A small hiatal hernia is noted. The visualized liver is normal in size and attenuation without focal lesions. The visualized spleen, pancreas, and stomach are normal. The gallbladder demonstrates cholelithiasis and is currently decompressed at this time. No evidence for intrahepatic or extra panic biliary ductal dilatation is noted. The bilateral adrenal glands are normal. The bilateral kidneys are decreased in size and correlate with mild renal atrophy. without evidence for hydroureteronephrosis or nephroureterolithiasis. A small fat-containing umbilical hernia is again noted which measures approximately 1.9 cm. The visualized bowel is nonobstructive. Mild sigmoid diverticulosis is present without evidence for acute diverticulitis, or appendicitis. The visualized aorta demonstrates vascular calcifications without evidence for aneurysmal dilatation. No evidence for pathologic lymphadenopathy is present. No pelvic mass, lymphadenopathy, or free fluid is seen. A well distended urinary bladder is present. The uterus and bilateral adnexa are normal. The surrounding osseous structures are remarkable for generalized osteopenia with degenerative changes of the spine and the bilateral sacroiliac joints.. IMPRESSION: 1. Decompressed gallbladder with cholelithiasis and no definite evidence for acute cholecystitis on the current study. Consider HIDA Scan to further evaluate. 2. Small hiatal hernia 3. Mild sigmoid diverticulosis without evidence for acute diverticulitis or appendicitis. 4. Small bilateral kidneys and correlate with mild atrophy without evidence for hydroureteronephrosis . 5. Mild atherosclerotic vascular disease RPTAT: HDC .Arti Garcia MD, Date Time Electronically viewed and signed by .Arti Garcia MD, MD on 01/13/2017 20: 48 .C/ CC: FERNANDO GAITAN PROCEDURE: XR Chest. CLINICAL INDICATION: Upper GI bleed TECHNIQUE: A single AP view of the chest was obtained. COMPARISON: CHEST 09/21/2016; CHEST 09/17/2016; CHEST 09/16/2016; JARRED CHEST 04/16/2016; CR CHEST 04/16/2016 FINDINGS: No focal airspace opacification, pleural effusion or pneumothorax is seen. The cardiomediastinal silhouette is within normal limits for size. Calcifications are seen within the aortic arch. The osseous structures are unremarkable. IMPRESSION: 1. No radiographic evidence of acute cardiopulmonary disease. 2. Aortic atherosclerosis. RPTAT: HH .Nayeli Cannon MD, MD Date Time Electronically viewed and signed by .Nayeli Cannon MD, MD on 01/13/2017 17 :45 .G/ CC: FERNANDO GAITAN Labs Result Diagram: 01/14/17 0539 01/14/17 0017 Medications Medications Current Medications Ondansetron HCl (Zofran Inj) 4 mg Q6H PRN IV NAUSEA AND/OR VOMITING; Start 01/14/17 at 00:00 Pantoprazole (Protonix Iv) 40 mg BID@06,18 IV Last administered on 01/14/17t 06 :23; Admin Dose 40 MG; Start 01/14/17 at 06:00 Clonidine (Catapres) 0.1 mg TID PRN PO ELEVATED BLOOD PRESSURE; Start 01/14/17 at 02:00 Escitalopram Oxalate (Lexapro) 20 mg DAILY PO ; Start 01/14/17 at 09:00 Pramipexole 0.5 mg 0.5 mg HS PO ; Start 01/14/17 at 21:00 Norepinephrine 16 mg/Dextrose 500 ml @ 1.87 mls/hr TITRATE IV ; Start 01/14/17 at 09:00 Ceftriaxone Sodium 50 ml @ 100 mls/hr Q24H IVPB ; Start 01/14/17 at 20:00 Norepinephrine (Levophed) 250 ml @ 1.875 mls/ hr TITRATE IV Last administered on 01/14/17t 04:25; Admin Dose 3.75 MLS/HR; Start 01/14/17 at 03:59; Stop at 08:00 MEKA SUE Jan 14, 2017 06:44
[2017-01-14] MEDS ORDERED: LORAZEPAM 2 MG INJ IV PRN (07:30)
[2017-01-14] MEDS ORDERED: LIDOCAINE 1% (MPF) 5 ML VIAL SC ONE (07:30)
[2017-01-14] MEDS ORDERED: DEXTROSE 5% 500 ML IV ONE (07:30)
[2017-01-14 08:29] LABS: CALCIUM 8.3 mg/dl (8.4-10.2); CREATININE 1.54 mg/dl (0.44-1.00); POTASSIUM 4.4 mmol/L (3.5-5.1)
[2017-01-14] MEDS: ESCITALOPRAM 10 MG TAB PO SCH (08:35)
[2017-01-14] MEDS: DEXTROSE 5% 1,000 ML IV SCH ×3 (08:40→19:58)
--- NOTE | 2017-01-14 09:22 | RADRPT ---
PROCEDURE: Retroperitoneal US. CLINICAL INDICATION: Hyponatremia TECHNIQUE: Multiple sonographic images of the kidneys and retroperitoneum were obtained. The imag es were reviewed on a PACS workstation. COMPARISON: CT 01/13/2017; US ABDOMEN 09/16/2016 FINDINGS: The kidneys are normal in size, contour, cortical thickness. There is slightly increased echogenicity of the kidneys. The right kidney measures 10.0 cm. The left kidney measures 10.3 cm. No kidney stones are visualized. There is no evidence for hydronephrosis. The urinary bladder is decompressed by a Rojas catheter. There is mild to moderate splenomegaly. The spleen measures 14.4 cm. RPTAT: AA IMPRESSION: Slightly increased echogenicity of the kidneys with no evidence of hydronephrosis. Mild to moderate splenomegaly. .Brayan Herzog MD, MD Date Time Electronically viewed and signed by .Brayan Herzog MD, MD on 01/14/2017 09:22 .S/
[2017-01-14 09:45] LABS: ANISOCYTOSIS 2+ (0-0); METAMYELOCYTES %M 2 % (0-0); MICROCYTOSIS 2+ (0-0); MONOCYTES % (M) 13 % (0-11); MYELOCYTES % (M) 1 % (0-0); PLATELET ESTIMATE NORMAL; POLYCHROMASIA 3+ (0-0)
--- NOTE | 2017-01-14 11:14 | CONS ---
DATE OF ADMISSION: 01/13/2017 DATE OF CONSULTATION: 01/14/2017 TYPE OF CONSULTATION: Nephrology. REASON FOR CONSULTATION: Acute kidney injury, severe hyponatremia. PHYSICIAN REQUESTING CONSULT: Dr. Sue. HISTORY OF PRESENT ILLNESS: This is a 66-year-old female with a past medical history of chronic kid siva disease with previous baseline creatinine around 1 to 1.2 mg/dL, history of alcohol abuse, possi ble cirrhosis, history of depression, hypertension, previous history of hyponatremia, who presents [facility] for GI bleeding. The patient states that she has had a melanotic sto ols over the past 2 days. She claims of having diarrhea for several days. The patient denied any h eadache, chest pain and shortness of breath. The patient states that she was also consuming alcohol approximately 1 month ago. The patient denies any recent alcohol use. The patient upon arrival to the emergency room had laboratory data which showed a white count 11.0, hemoglobin 6.6, platelet co unt 237, a sodium of 112. In the emergency room, the patient was typed and crossed and transfused b lood. She was admitted to intensive care unit. She was also given IV fluids. In terms of the patient's renal history, the patient previously was admitted in September with acute ki dney injury. At that time had a creatinine of 6.25 which resolved with IV hydration. Patient on admission had a sodium level 112, which improved rapidly in approximately 12 hours to 124 mEq per liter. The patient has put out over 2 liters of urinary output in a 12 hour period. There have be en no reports of seizures or change in mental status. PAST MEDICAL HISTORY: As stated above, history of chronic kidney disease, history of depression, hy pertension, ETOH abuse. PAST SURGICAL HISTORY: The patient is status post thyroidectomy, breast tumor removal, appendectomy . FAMILY HISTORY: Noncontributory. SOCIAL HISTORY: Positive alcohol use. MEDICATIONS: The patient's medications have been reviewed. REVIEW OF SYSTEMS: A 14-point review of systems was conducted. Pertinent positives in HPI, otherwi se negative. PHYSICAL EXAMINATION: VITAL SIGNS: Blood pressure is 124/69, respirations 11, pulse 74, temperature 98.0. HEENT: Head is normocephalic. NECK: Supple. HEART: Regular rate. LUNGS: Show diminished breath sounds at base. ABDOMEN: Soft, nontender to palpation. No rebound or guarding. EXTREMITIES: Negative for clubbing, cyanosis, no edema. DERMATOLOGIC: No rashes. MUSCULOSKELETAL: No joint effusions. NEUROLOGIC: No change in exam. MEDICATIONS: The patient's medications have been reviewed. LABORATORY DATA: Shows a sodium of 126, potassium 4.7, chloride 93, BUN 43, creatinine 1.66. White count 8.3, hemoglobin 8.5, hematocrit 23.7, platelet count of 193. Urinalysis shows urine sodium l ess than 1, urine osmolarity of 189. IMAGING STUDIES: CT abdomen and pelvis shows decompressed gallbladder with cholelithiasis, no evide nce of acute cholecystitis, diverticulosis and bilateral small kidneys. Chest x-ray shows no acute cardiopulmonary disease. ASSESSMENT AND PLAN: This is a 66-year-old female who presents with: 1. Severe hyponatremia, possibly acute versus subacute versus chronic. Etiology is multifactorial secondary to hydrochlorothiazide associated hyponatremia, volume depletion, low solute intake. The patient's urinary sodium level and FeNa are less than 1% consistent with prerenal state. The patien t's urinary osmolarity was sufficiently low, suggesting appropriate dilution of urine. However, in a possible setting of low solute state in conjunction with hydrochlorothiazide and volume depletion. Adequate free water urinary excretion would be inhibited. The patient's sodium level corrected ra pidly from 112 to 126 mEq in approximately 12 hours after receiving IV fluids. Plan at this point w ould be to stop normal saline. Will start the patient on D5 water. We will bolus the patient 1 lit er of D5 water and continue at a rate of 150 mL an hour. The goal would be to decreased serum sodiu m levels so correction in a 24-hour period is no more than 8 to 10 mEq. If sodium levels do not dec rease, we will also give desmopressin. Monitor sodium levels every 2 hours and monitor urinary outp ut closely. 2. Nonoliguric acute kidney injury on top of chronic kidney disease with previous baseline creatini ne 1.0 mg/dL. Etiology of acute kidney injury is secondary to volume depletion. The patient's santi l function has improved with IV hydration. Continue to monitor. 3. Severe anemia with GI bleed. The patient is status post blood transfusions. Continue to monito r hemoglobin and hematocrit levels. 4. Mineral bone disorder. Monitor calcium and phosphorus levels. 5. Shock, etiology is hypokalemic. The patient is currently off pressor support after receiving IV fluids. Will continue to monitor. Would recommend to ruling out infection. 6. Urinary tract infection. The patient is currently on IV antibiotics, continue to monitor. 7. Hypothyroidism. Continue Synthroid. 8. History of alcohol abuse. Monitor for any signs of withdrawal. 9. History of hypertension. Thank you, Dr. Sue, for this interesting consult. It will be a pleasure to follow patient with you throughout the hospital course. Please note I spent over 40 minutes of critical care time with this patient. Dictated By: ONEIL CANDELARIA DO NR/NTS Conf#: [id number] DID#: [id number] CC: MEKA SUE MD; ONEIL CANDELARIA DO;*EndCC*
[2017-01-14 11:35] LABS: CALCIUM 8.3 mg/dl (8.4-10.2); CREATININE 1.48 mg/dl (0.44-1.00); POTASSIUM 4.2 mmol/L (3.5-5.1)
--- NOTE | 2017-01-14 12:18 | CONS ---
Date/Time of Note Date/Time of Note DATE: 01/14/17 TIME: 11:52 Assessment/Plan Assessment/Plan Chief Complaint/Hosp Course Summary Assessment and Plan: Assessment: Severe Anemia UGI bleed r/o PUD vs gastritis vs duodenitis History of gastric ulcers History of alcohol abuse Severe hyponatremia/improved Acute on chronic kidney injury: Hypothyroidism HTN Depression Plan: Keep NPO EGD today Endoscopy - risks/benefits/alternatives/indications of procedure and sedation/ anesthesia discussed with patient who states understanding and gives informed consent to proceed. PARQ held and questions were answered. Problems: Consultation Date/Type/Reason Admit Date/Time Jan 13, 2017 at 19:49 Date of Consultation: Jan 14, 2017 Type of Consultation: GI Reason for Consultation Melena Severe anemia Hx of Present Illness This is is 66 year old female (who is a poor historian) with past medical history of alcohol abuse, HTN, CARLOS, depression, hypothyroidism, and gastric ulcers. Who was sent to the ER from her assisted living, for increased weakness. Shes recently had diarrhea with black stools about 2-3 weeks ago, but has since resolved. Initial lab work-up in the ER showed a HGB of 6.6, PLT 237, WBC 11, Na 116, and Cr 1.7. A ct abd/pelvis without contrast revealed cholelithiasis and no definite evidence for acute cholecystitis diverticulosis, hiatal hernia, mild atrophy bilateral kidneys, and mild atherosclerotic vascular disease. She denies NSAID use states her last alcoholic drink was 1 month ago. Currently denies hematemesis, hematochezia, nausea, vomiting, abdominal pain. With clinical presentation and past medical history we will plan to keep patient n.p.o. and plan for EGD today rule out PUD versus gastritis versus duodenitis. Constitutional: no complaints Eyes: no complaints ENT: no complaints Respiratory: no complaints Cardiovascular: no complaints Gastrointestinal: blood, pain, No nausea, No vomiting Genitourinary: no complaints Musculoskeletal: no complaints Skin: no complaints Neurologic: no complaints Past Medical History Medical History: hypertension, hypothyroid, peptic ulcer disease, renal disease , other (depression) Social History Alcohol Use: heavy Smoking Status: Former smoker Exam/Review of Systems Vital Signs Vitals Vital Signs Date Time Temp Pulse Resp B/P Pulse Ox O2 Delivery O2 Flow Rate FiO2 01/14/17 09:45 76 12 109/59 99 01/14/17 09:00 Room Air 01/14/17 08:00 98.4 Intake and Output 01/13/17 01/13/17 01/14/17 14:59 22:59 06:59 Intake Total 355.75 ml Output Total 1795 ml Balance -1439.25 ml Exam PHYSICAL EXAMINATION: GENERAL: Well developed, well nourished, alert & oriented x 3, in no acute distress SKIN: No lesions, no stigmata chronic liver disease, no evidence of bleeding diathesis LYMPHATIC: No palpable lymphadenopathy. HEAD: Normocephalic, atraumatic, no tenderness. EYES: Pupils equal reactive to light and accommodation, full extraocular movements, sclera clear, non-icteric, no discharge. EARS/NOSE AND THROAT: Ears normal, nose normal, oropharynx normal, oral membranes well hydrated without lesions. NECK: Supple, no masses, thyroid normal, JVP within normal limits, carotids normal without bruits. CHEST: Inspection within normal limits. CARDIOVASCULAR: Heart: Regular rate and rhythm, no murmurs, RESPIRATORY: Lungs clear to auscultation GASTROINTESTINAL AND LIVER: Abdomen: Soft, non tenderness, non-distended, no hernias, no masses, no organomegaly, no ascites, no guarding, no rebound tenderness, normoactive bowel sounds. Rectal: Deferred. GENITOURINARY: Female genitalia within normal limits. EXTREMITIES: +2 edema. Results Result Diagram: 01/14/17 0539 01/14/17 1041 Results 24 hrs Laboratory Tests Test 01/13/17 17:45 01/13/17 21:20 01/14/17 00:17 01/14/17 05:39 White Blood Count 11.0 #H 8.2 # 8.3 Red Blood Count 2.14 #L 2.41 L 2.78 L Hemoglobin 6.6 #*L 7.5 L 8.5 L Hematocrit 17.9 #L 20.4 L 23.7 L Mean Corpuscular Volume 83.6 84.6 85.3 Mean Corpuscular Hemoglobin 30.8 31.1 30.6 Mean Corpuscular Hemoglobin Concent 36.9 36.8 35.9 Red Cell Distribution Width 14.9 H 14.6 H 14.6 H Platelet Count 237 169 # 193 Mean Platelet Volume 9.3 9.3 9.3 Neutrophils % Segmented Neutrophils % (Manual) 80 H 58 63 Lymphocytes % Lymphocytes % (Manual) 18 24 15 Monocytes % Monocytes % (Manual) 2 8 13 H Eosinophils % Basophils % Nucleated Red Blood Cells % 0.0 0.0 0.0 Neutrophils # Absolute Lymphocytes (Manual) 1.9 1.9 1.2 Lymphocytes # Monocytes # Absolute Monocytes (Manual) 0.2 L 0.6 1.0 H Eosinophils # Basophils # Nucleated Red Blood Cells # Platelet Estimate NORMAL NORMAL NORMAL Polychromasia 1+ 3+ 3+ Anisocytosis 2+ 2+ 2+ Microcytosis 1+ 2+ 2+ Prothrombin Time 13.3 Prothrombin Time Ratio 1.0 INR International Normalized Ratio 1.00 Activated Partial Thromboplast Time 31.5 Sodium Level 112 *L 119 *L 126 L Potassium Level 4.9 4.7 4.7 Chloride Level 78 L 90 #L 93 L Carbon Dioxide Level 22 23 26 Anion Gap 17 H 11 12 Blood Urea Nitrogen 59 H 50 H 43 H Creatinine 2.03 H 1.77 H 1.66 H Glucose Level 117 104 110 Osmolality 251 L Calcium Level 8.5 8.1 L 8.7 Total Bilirubin 0.0 L 1.0 0.9 Direct Bilirubin 0.00 0.00 0.00 Indirect Bilirubin 0.0 1.0 0.9 Aspartate Amino Transf (AST/SGOT) 45 41 39 Alanine Aminotransferase (ALT/SGPT) 46 42 40 Alkaline Phosphatase 35 L 30 L 32 L Troponin I < 0.012 Total Protein 5.9 L 5.7 L 5.6 L Albumin 3.2 L 2.8 L 2.7 L Globulin 2.70 2.90 2.90 Albumin/Globulin Ratio 1.18 0.96 0.93 Amylase Level 64 Lipase 504 H Ethyl Alcohol Level < 10.0 Urine Color YELLOW Urine Clarity SLIGHTLY CLOUDY A Urine pH 5.0 Urine Specific [place] 1.005 Urine Ketones NEGATIVE Urine Nitrite POSITIVE A Urine Bilirubin NEGATIVE Urine Urobilinogen NEGATIVE Urine Leukocyte Esterase 3+ H Urine Microscopic RBC 3 Urine Microscopic WBC 20 H Urine Bacteria MANY A Urine Hemoglobin 2+ H Urine Osmolality 189 L Urine Random Sodium < 13 L Urine Glucose NEGATIVE Urine Total Protein NEGATIVE Band Neutrophils % (Manual) 2 6 H Eosinophils % (Manual) 2 Basophils % (Manual) 1 Metamyelocytes % (manual) 1 H 2 H Myelocytes % (Manual) 2 H 1 H Promyelocytes % (Manual) 2 H Neutrophils # (Manual) 4.8 5.3 Band Neutrophils # 0.1 0.4 Basophils # (Manual) 0.0 Metamyelocytes # 0.0 0.1 H Myelocytes # 0.1 H 0.0 Promyelocytes # 0.1 H Poikilocytosis 1+ Lactic Acid Level 1.1 Iron Level 258 H Total Iron Binding Capacity 310 Percent Iron Saturation 83 H Test 01/14/17 08:06 01/14/17 10:41 Sodium Level 125 L 123 L Potassium Level 4.4 4.2 Chloride Level 96 L 95 L Carbon Dioxide Level 22 22 Anion Gap 11 10 Blood Urea Nitrogen 41 H 37 H Creatinine 1.54 H 1.48 H Glucose Level 109 173 Calcium Level 8.3 L 8.3 L Medications Medications Current Medications Ondansetron HCl (Zofran Inj) 4 mg Q6H PRN IV NAUSEA AND/OR VOMITING; Start 01/14/17 at 00:00 Pantoprazole (Protonix Iv) 40 mg BID@06,18 IV Last administered on 01/14/17 06 :23; Admin Dose 40 MG; Start 01/14/17 at 06:00 Clonidine (Catapres) 0.1 mg TID PRN PO ELEVATED BLOOD PRESSURE; Start 01/14/17 at 02:00 Escitalopram Oxalate (Lexapro) 20 mg DAILY PO Last administered on 01/14/17 08 :35; Admin Dose 20 MG; Start 01/14/17 at 09:00 Pramipexole 0.5 mg 0.5 mg HS PO ; Start 01/14/17 at 21:00 Norepinephrine 16 mg/Dextrose 500 ml @ 1.87 mls/hr TITRATE IV ; Start 01/14/17 at 09:00 Ceftriaxone Sodium 50 ml @ 100 mls/hr Q24H IVPB ; Start 01/14/17 at 20:00 Dextrose (D5W) 1,000 ml @ 150 mls/hr Q6H40M IV Last administered on 01/14/17 08:40; Admin Dose 150 MLS/HR; Start 01/14/17 at 07:30 Lorazepam (Ativan) 1 mg Q6H PRN IV AGITATION/ANXIETY; Start 01/14/17 at 07:30 Copies To: CC: MARIANNE COREY MD, VICTORIA Jan 14, 2017 12:07
[2017-01-14 13:32] LABS: CALCIUM 8.1 mg/dl (8.4-10.2); CREATININE 1.45 mg/dl (0.44-1.00); POTASSIUM 4.2 mmol/L (3.5-5.1)
[2017-01-14] MEDS ORDERED: DESMOPRESSIN 4 MCG INJ IV ONE (14:30)
[2017-01-14 15:08] LABS: CALCIUM 8.2 mg/dl (8.4-10.2); CREATININE 1.44 mg/dl (0.44-1.00); POTASSIUM 4.1 mmol/L (3.5-5.1)
[2017-01-14] MEDS: ONDANSETRON 4 MG INJ IV PRN (16:05)
[2017-01-14 16:40] LABS: CALCIUM 8.2 mg/dl (8.4-10.2); CREATININE 1.45 mg/dl (0.44-1.00); POTASSIUM 4.2 mmol/L (3.5-5.1)
[2017-01-14 18:15] LABS: HEMATOCRIT 21.9 % (37.0-47.0); HEMOGLOBIN 7.9 g/dl (12.0-16.0)
[2017-01-14 18:34] LABS: CALCIUM 8.3 mg/dl (8.4-10.2); CREATININE 1.35 mg/dl (0.44-1.00); POTASSIUM 4.3 mmol/L (3.5-5.1)
--- NOTE | 2017-01-14 19:11 | OPPN ---
Date/Time of Note Date/Time of Note DATE: 01/14/17 TIME: 19:05 Proc Note GI Procedure Date 01/14/17 Indication: other (Anemia) Pre-procedure Diagnosis Anemia/GI bleeding Post-procedure Diagnosis Impression: Mild distal esophagitis. Post gastrojejunostomy Billroth II Preserved pylorus and proximal duodenum Ulceration in both the afferent and efferent jejunal loops. No stigmata recent bleeding. Moderate gastritis. Rule out H. pylori infection. Biopsies obtained. Plan: Continue Protonix 40 mg twice daily. Add Carafate 1 g 4 times daily. Monitor H&H and transfuse as necessary. Review pathology as soon as available. Once cleared by nephrology may start liquid diet and advance as tolerated Eventually an upper GI series should be considered to further define the postoperative anatomy . Procedure Performed: Endoscopy (With biopsies) Surgeon MARIANNE COREY MD See signature line [employer] Instructor none Anesthesia Type: MAC Anesthesiologist: RAFAT ALCALA Tourniquet Time none EBL none Transfusion required none Biopsy 1: Gastric antrum Grafts/Implants none Tubes/Drains none Complication(s) none Disposition: other (ICU) Procedure Description After informed consent, with the patient/relatives understanding the procedure, its indications, potential risks and complications, including but not limited to : allergic reaction, bleeding, perforation or infection, and after all pertinent questions were answered to the patients satisfaction, the patient/ relatives signed witnessed informed consent. Following this, premedication was administered slowly IV push under careful cardiovascular and respiratory monitoring with pulse oximetry, automatic blood pressure, and licensed mass real estate appraiser. Once the sedative effect was achieved the patient was place in the left lateral decubitus, the panendoscope was introduced and advanced under visual control. Careful examination of the upper gastrointestinal tract, both on insertion as well as withdrawal of the instrument disclosing the following findings: ESOPHAGUS: the mucosa of the entire esophagus was carefully examined and showed the following findings: There is moderate erythema and edema the mucosa of the distal esophagus. Otherwise the mucosa appears within normal limits. There is no evidence of varices, neoplasm, or stricture. No Hiatal Hernia identified. STOMACH: Upon entrance to the stomach air was insufflated, the gastric walters distended normally. The mucosa of the fundus, body and antrum of the stomach was carefully examined both head-on and on retroflexion, and showed the following findings: There is evidence of gastrojejunostomy Billroth II anastomosis. There is also preserved pylorus and proximal duodenum. The anastomosis was carefully examined in both the afferent and efferent loops of jejunum showed extensive areas of ulceration. No stigmata of recent bleeding is present. The gastric mucosa shows erythema and edema of a moderate degree. Biopsies were obtained of the antrum the stomach in a limited fashion to rule out H. pylori infection. PYLORUS: The pylorus was carefully examined and showed the following findings: the pylorus appears patent and within normal limits, with no evidence of gastric outlet obstruction. DUODENUM: The duodenal mucosa was carefully examined in the duodenal bulb as well as the second portion of the duodenum and showed the following findings: The proximal duodenal bulb appears unremarkable Copies To: CC: MARIANNE COREY MD, MORDO MD Jan 14, 2017 19:11
--- NOTE | 2017-01-14 19:12 | HPN ---
Date/Time of Note Date/Time of Note DATE: 01/14/17 TIME: 18:42 Interval H&P Admission Note Pt. seen H&P reviewed: No system changes MARIANNE COREY MD Jan 14, 2017 19:12
[2017-01-14] MEDS ORDERED: CEFTRIAXONE 1 GM/50 ML (PMX) 50 ML IVPB SCH (20:00)
[2017-01-14 20:23] LABS: CALCIUM 8.7 mg/dl (8.4-10.2); CREATININE 1.36 mg/dl (0.44-1.00); POTASSIUM 4.3 mmol/L (3.5-5.1)
[2017-01-14] MEDS: SUCRALFATE 1 GM TAB PO SCH (20:25)
[2017-01-14] MEDS: PRAMIPEXOLE 0.25 MG TAB PO SCH (21:30)
[2017-01-14 22:37] LABS: CALCIUM 8.6 mg/dl (8.4-10.2); CREATININE 1.31 mg/dl (0.44-1.00)
[2017-01-15] VITALS (23 sets, daily range): BP systolic 97–163; BP diastolic 51–88; PULSE 69–89; RESP 9–16
[2017-01-15] MEDS: morphine 2 MG INJ IV PRN ×6 (00:35→23:52)
[2017-01-15 00:57] LABS: HEMATOCRIT 20.9 % (37.0-47.0); HEMOGLOBIN 7.5 g/dl (12.0-16.0)
[2017-01-15 01:26] LABS: ADD UMIC YES; UR ASCORBIC ACID NEGATIVE (NEGATIVE); UR BACTERIA FEW /HPF (NONE SEEN); UR BILIRUBIN (Dip) NEGATIVE (NEGATIVE); UR BLOOD (Dip) 1+ mg/dL (NEGATIVE); UR CLARITY CLEAR (CLEAR); UR COLOR YELLOW (YELLOW); UR GLUCOSE (Dip) NEGATIVE (NEGATIVE); UR KETONES (Dip) NEGATIVE (NEGATIVE); UR LEUKOCYTE ESTERASE (Dip) 1+ Leu/ul (NEGATIVE); UR MUCUS FEW /HPF (NONE SEEN); UR NITRITE (Dip) NEGATIVE (NEGATIVE); UR RBC 2 /HPF (0-5); UR SPECIFIC GRAVITY (Dip) 1.014 (1.003-1.030); UR TOTAL PROTEIN (Dip) NEGATIVE (NEGATIVE); UR UROBILINOGEN (Dip) NEGATIVE (NEGATIVE)
[2017-01-15 01:59] LABS: OPIATES Negative (NEGATIVE)
[2017-01-15 02:02] LABS: BARBITURATES Negative (NEGATIVE); BENZODIAZEPINES Positive (NEGATIVE); CANNABINOIDS Negative (NEGATIVE); COCAINE Negative (NEGATIVE)
[2017-01-15 04:01] LABS: CALCIUM 8.3 mg/dl (8.4-10.2); CREATININE 1.26 mg/dl (0.44-1.00); MAGNESIUM 1.8 mg/dl (1.7-2.5); PHOSPHORUS 3.4 mg/dl (2.5-4.9); POTASSIUM 3.9 mmol/L (3.5-5.1)
[2017-01-15 04:08] LABS: ABNORMAL IP MESSAGE 1; BASOPHILS % 0.3 % (0.0-2.0); EOSINOPHILS # 0.1 10^3/ul (0.0-0.5); EOSINOPHILS % 1.5 % (0.0-7.0); HEMATOCRIT 20.1 % (37.0-47.0); HEMOGLOBIN 7.3 g/dl (12.0-16.0); LYMPHOCYTES # 1.2 10^3/ul (0.8-2.9); LYMPHOCYTES % 17.4 % (15.0-51.0); MEAN CORPUSCULAR HEMOGLOBIN 31.2 pg (29.0-33.0); MEAN CORPUSCULAR HGB CONC 36.3 g/dl (32.0-37.0); MEAN CORPUSCULAR VOLUME 85.9 fl (82.0-101.0); MEAN PLATELET VOLUME 8.9 fl (7.4-10.4); MONOCYTE # 0.8 10^3/ul (0.3-0.9); MONOCYTES % 12.3 % (0.0-11.0); NEUTROPHIL # 4.2 10^3/ul (1.6-7.5); NEUTROPHILS % 62.4 % (39.0-77.0); PLATELET COUNT 173 10^3/UL (140-415); RED BLOOD COUNT 2.34 10^6/ul (4.20-5.40); WHITE BLOOD COUNT 6.7 10^3/ul (4.8-10.8)
[2017-01-15 04:15] LABS: POSITIVE DIFF @See below
[2017-01-15] MEDS: SOD CHLORIDE 0.9% 1,000 ML IV SCH ×2 (05:16→19:34)
[2017-01-15] MEDS: PANTOPRAZOLE 40 MG INJ IV SCH ×2 (06:09→17:47)
[2017-01-15 07:14] LABS: CALCIUM 8.6 mg/dl (8.4-10.2); CREATININE 1.21 mg/dl (0.44-1.00); POTASSIUM 3.9 mmol/L (3.5-5.1)
[2017-01-15] MEDS: ESCITALOPRAM 10 MG TAB PO SCH (08:35)
[2017-01-15] MEDS: LEVOTHYROXINE 125 MCG TAB PO SCH (08:35)
[2017-01-15] MEDS: SUCRALFATE 1 GM TAB PO SCH ×2 (08:37→13:27)
--- NOTE | 2017-01-15 09:13 | PN ---
DATE: 01/15/2017 SUBJECTIVE: The patient remains in serious but stable condition. The patient for last 24 hours has had q. 2 sodium level checks in order to ensure appropriate correction of her severe hyponatremia. The patient has had no episodes of seizures, no shortness of breath. The patient is alert and orie nted. OBJECTIVE: VITAL SIGNS: Blood pressure is 130/62, respirations 13, pulse 76, temperature 98.8. INTAKE AND OUTPUTS: The patient had 2.9 liters in, 1.8 liters out. HEENT: Head is normocephalic. NECK: Supple. HEART: Regular rate. LUNGS: Show diminished breath sounds at the base. ABDOMEN: Soft, nontender to palpation. No rebound or guarding. EXTREMITIES: Negative for clubbing, cyanosis, no edema. DERMATOLOGIC: No rashes. MUSCULOSKELETAL: No joint effusions. NEUROLOGIC: No change in exam. MEDICATIONS: The patient's medications have been reviewed. LABORATORY DATA: Repeat urinalysis shows a urinary sodium of 64, protein creatinine ratio of 500 mg /g of creatinine. BMP showed a sodium 120, potassium 3.9, chloride 90, BUN 25, creatinine 1.21. Wh ite count 6.7, hemoglobin 7.3, hematocrit 20.1, platelet count 173. ASSESSMENT AND PLAN: 1. Severe hyponatremia, unclear if this is acute versus chronic. Etiology was multifactorial secon kimber to volume depletion due to hydrochlorothiazide effect, low solute intake and sepsis. The patie nt's sodium levels initially over corrected from 112 to 126 mEq. The patient was given desmopressin as well as D5 water with sodium levels being lower to 120 mEq per liter ensuring correction of no m ore than 8 mEq in a 24-hour period. The plan at this point is to continue to monitor serial sodium levels, we will start the patient on normal saline, will monitor to ensure correction of no more henna n 16 to 18 mEq in a 48-hour period. 2. Nonoliguric acute kidney injury on top of chronic kidney disease with previous baseline creatini ne 1.0 mg/dL. Etiology of acute kidney injury is secondary to volume depletion. Renal function slo wly improving. Continue current treatment plan. 3. Severe anemia with gastrointestinal bleed. The patient is status post esophagogastroduodenoscop y. Continue Protonix. Continue blood transfusions as needed. 4. Mineral bone disorder. Continue to monitor calcium and phosphorus levels. 5. Status post shock, etiology is felt to be hypovolemic, questionable sepsis. Continue current an tibiotic regimen. Continue IV fluids. 6. Hypothyroidism. Continue Synthroid. 7. History of alcohol abuse. 8. Hypertension. Please note I spent over 35 minutes of critical care time with this patient. Dictated By: ONEIL CANDELARIA DO NR/NTS Conf#: [id number] DID#: [id number] CC: MEKA SUE MD;*EndCC*
[2017-01-15] MEDS: MEROPENEM 500MG/50 ML (PMX) 50 ML IVPB SCH ×2 (09:37→14:09)
--- NOTE | 2017-01-15 11:58 | PN ---
Date/Time of Note Date/Time of Note DATE: 01/15/17 TIME: 11:51 Assessment/Plan VTE Prophylaxis VTE Prophylaxis Intervention: SCD's Assessment/Plan Chief Complaint/Hosp Course This is a 58-year-old female who was originally admitted to the telemetry floor however she was subsequently transferred to the ICU for: #1 GI bleed status post EGD EGD shows mild distal esophagitis, Post gastrojejunostomy Billroth II, moderate gastritis, ulceration in both the afferent and efferent jejunal loops. No stigmata recent bleeding. Continue PPI and Carafate Patient is status post 3 units of packed blood cells Follow-up on biopsies #2 Hypotension secondary to severe dehydration-resolved IV fluids Continue IV fluids #3 Severe hyponatremia: Likely multifactorial secondary to volume depletion as well as diuretics-improving Continue IV fluids with normal saline Nephrology consultation appreciated Hold diuretics #4 Acute on chronic kidney disease secondary to dehydration-improved with fluids Continue IV fluids Nephrology consultation appreciated #5 hypothyroidism Continue home Synthroid #6 hypertension Hold home meds secondary to above #7 depression: Continue home meds #8 history of alcohol abuse-currently denies any alcohol abuse Toxicology is negative #9 urinary tract infection Continue Rocephin Follow-up on culture #10 Debility with bedsores Wound care consult appreciated Patient resides in assisted living PT eval when stable and out of the ICU DVT GI prophylaxis: SCDs, Protonix IV Problems: Subjective 24 Hr Interval Summary Constitutional: no complaints Exam/Review of Systems Vital Signs Vitals Vital Signs Date Time Temp Pulse Resp B/P Pulse Ox O2 Delivery O2 Flow Rate FiO2 01/15/17 11:00 73 9 139/82 97 Room Air 01/15/17 10:00 98.4 Intake and Output 01/14/17 01/14/17 01/15/17 15:00 23:00 07:00 Intake Total 1550 ml 800 ml 625 ml Output Total 875 ml 605 ml 340 ml Balance 675 ml 195 ml 285 ml Exam Constitutional: alert Respiratory: clear to auscultation Cardiovascular: regular rate and rhythm Gastrointestinal: soft, No distended Musculoskeletal: nl extremities to inspection Results Result Diagram: 01/15/17 0330 01/15/17 0917 Results 24 hrs Laboratory Tests Test 01/14/17 12:59 01/14/17 14:00 01/14/17 16:05 01/14/17 17:55 Sodium Level 123 L 122 L 121 L 120 L Potassium Level 4.2 4.1 4.2 4.3 Chloride Level 94 L 94 L 93 L 91 L Carbon Dioxide Level 22 22 23 24 Anion Gap 11 10 9 9 Blood Urea Nitrogen 36 H 37 H 35 H 35 H Creatinine 1.45 H 1.44 H 1.45 H 1.35 H Glucose Level 141 146 147 145 Calcium Level 8.1 L 8.2 L 8.2 L 8.3 L Hemoglobin 7.9 L Hematocrit 21.9 L Test 01/14/17 19:56 01/14/17 22:11 01/15/17 00:01 01/15/17 00:30 Sodium Level 121 L 122 L Potassium Level 4.3 4.0 Chloride Level 93 L 91 L Carbon Dioxide Level 25 24 Anion Gap 7 L 11 Blood Urea Nitrogen 34 H 31 H Creatinine 1.36 H 1.31 H Glucose Level 128 135 Calcium Level 8.7 8.6 Urine Color YELLOW Urine Clarity CLEAR Urine pH 5.0 Urine Specific [place] 1.014 Urine Ketones NEGATIVE Urine Nitrite NEGATIVE Urine Bilirubin NEGATIVE Urine Urobilinogen NEGATIVE Urine Leukocyte Esterase 1+ H Urine Microscopic RBC 2 Urine Microscopic WBC 9 H Urine Bacteria FEW A Urine Mucus FEW A Urine Hemoglobin 1+ H Urine Random Creatinine 75.38 Urine Random Sodium 64 Urine Glucose NEGATIVE Urine Total Protein 18.0 H Urine Opiates Screen Negative Urine Barbiturates Negative Urine Amphetamines Screen Negative Urine Benzodiazepines Screen Positive Urine Cocaine Screen Negative Urine Cannabinoids Negative Hemoglobin 7.5 L Hematocrit 20.9 L Test 01/15/17 03:30 01/15/17 04:46 01/15/17 06:20 01/15/17 09:17 White Blood Count 6.7 Red Blood Count 2.34 L Hemoglobin 7.3 L Hematocrit 20.1 L Mean Corpuscular Volume 85.9 Mean Corpuscular Hemoglobin 31.2 Mean Corpuscular Hemoglobin Concent 36.3 Red Cell Distribution Width 15.0 H Platelet Count 173 Mean Platelet Volume 8.9 Neutrophils % 62.4 Lymphocytes % 17.4 Monocytes % 12.3 H Eosinophils % 1.5 Basophils % 0.3 Nucleated Red Blood Cells % 0.0 Neutrophils # 4.2 Lymphocytes # 1.2 Monocytes # 0.8 Eosinophils # 0.1 Basophils # 0.0 Nucleated Red Blood Cells # 0.0 Sodium Level 119 *L 120 L 122 L Potassium Level 3.9 3.9 Chloride Level 90 L 90 L Carbon Dioxide Level 24 25 Anion Gap 9 9 Blood Urea Nitrogen 28 H 25 H Creatinine 1.26 H 1.21 H Glucose Level 128 117 Calcium Level 8.3 L 8.6 Phosphorus Level 3.4 Magnesium Level 1.8 Lab Scanned Report BLOOD TRANSFUSION Medications Medications Current Medications Ondansetron HCl (Zofran Inj) 4 mg Q6H PRN IV NAUSEA AND/OR VOMITING Last administered on 01/14/17 16:05; Admin Dose 4 MG; Start 01/14/17 at 00:00 Pantoprazole (Protonix Iv) 40 mg BID@06,18 IV Last administered on 01/15/17 06 :09; Admin Dose 40 MG; Start 01/14/17 at 06:00 Clonidine (Catapres) 0.1 mg TID PRN PO ELEVATED BLOOD PRESSURE; Start 01/14/17 at 02:00 Escitalopram Oxalate (Lexapro) 20 mg DAILY PO Last administered on 01/15/17 08 :35; Admin Dose 20 MG; Start 01/14/17 at 09:00 Pramipexole 0.5 mg 0.5 mg HS PO Last administered on 01/14/17 21:30; Admin Dose 0.5 MG; Start 01/14/17 at 21:00 Norepinephrine/ Dextrose (Levophed/D5W) 500 ml @ 1.87 mls/hr TITRATE IV ; Start 01/14/17 at 09:00 Lorazepam (Ativan) 1 mg Q6H PRN IV AGITATION/ANXIETY; Start 01/14/17 at 07:30 Sucralfate (Carafate) 1 gm QID PO Last administered on 01/15/17 08:37; Admin Dose 1 GM; Start 01/14/17 at 21:00 Morphine Sulfate 2 mg 2 mg Q4H PRN IV PAIN Last administered on 01/15/17 09:12 ; Admin Dose 2 MG; Start 01/15/17 at 00:00 Sodium Chloride 1,000 ml @ 75 mls/hr [id number] IV Last administered on 05:16; Admin Dose 75 MLS/HR; Start 01/15/17 at 05:00 Meropenem/Sodium Chloride 50 ml @ 100 mls/hr Q8 IVPB Last administered on 01/15 09:37; Admin Dose 100 MLS/HR; Start 01/15/17 at 08:30; Stop 01/15/17 at 16 :00 Meropenem/Sodium Chloride (Merrem 1 Gm/50 ml (Pmx)) 50 ml @ 100 mls/hr Q12 IVPB ; Start 01/15/17 at 23:00 AKIN BENITEZ Jan 15, 2017 11:58
[2017-01-15 12:19] LABS: HEMATOCRIT 24.2 % (37.0-47.0); HEMOGLOBIN 8.6 g/dl (12.0-16.0)
[2017-01-15 16:58] LABS: HEMATOCRIT 23.7 % (37.0-47.0); HEMOGLOBIN 8.4 g/dl (12.0-16.0)
[2017-01-15 17:35] LABS: PATH REVIEW CH
[2017-01-15] MEDS: SUCRALFATE (100 MG/ML) 10ML CUP PO SCH ×2 (17:46→21:03)
--- NOTE | 2017-01-15 17:46 | PN ---
Date/Time of Note Date/Time of Note DATE: 01/15/17 TIME: 17:25 Assessment/Plan VTE Prophylaxis VTE Prophylaxis Intervention: SCD's Assessment/Plan Chief Complaint/Hosp Course Severe Anemia S/P EGD Mild distal esophagitis. Post gastrojejunostomy Billroth II Preserved pylorus and proximal duodenum Ulceration in both the afferent and efferent jejunal loops. Moderate gastritis. Rule out H. pylori infection. History of gastric ulcers History of alcohol abuse ESBL positive - in isolation Severe hyponatremia/improved Acute on chronic kidney injury: Hypothyroidism HTN Depression Plan: Continue Protonix 40 mg and Carafate Monitor H&H and transfuse for hemoglobin less than 7.5. Monitor for hyponatremia Review pathology as soon as available. Start renal diet advance as tolerated Eventually an upper GI series should be considered to further define the postoperative anatomy Subjective: Patient is feeling better today , states that she is hungry. Complains of right upper abdominal pain. Dr. Long cleared the patient for renal diet and it has been ordered. Patient is now in isolation for ESBL . Will continue close monitoring of H&H and electrolytes. Plan discussed with the patient and nursing staff. All laboratory values reviewed. Patient seen in collaboration with PHYSICAL EXAMINATION: GENERAL: Well developed, obese, well nourished, alert & oriented x 3, in no acute distress SKIN: No lesions, no stigmata chronic liver disease, no evidence of bleeding diathesis LYMPHATIC: No palpable lymphadenopathy. HEAD: Normocephalic, atraumatic, no tenderness. EYES: Pupils equal reactive to light and accommodation, full extraocular movements, sclera clear, non-icteric, no discharge. EARS/NOSE AND THROAT: Ears normal, nose normal, oropharynx normal, oral membranes well hydrated without lesions. NECK: Supple, no masses, thyroid normal, JVP within normal limits, carotids normal without bruits. CHEST: Inspection within normal limits. CARDIOVASCULAR: Heart: Regular rate and rhythm, no murmurs, gallops or rubs. Peripheral pulses present within normal limits, no cyanosis, clubbing or edemas. No pulsatile abdominal mass RESPIRATORY: Lungs clear to auscultation and percussion, no wheezing, no rubs GASTROINTESTINAL AND LIVER: Abdomen: Soft, obese, non tenderness, non-distended , no hernias, no masses, no organomegaly, no ascites, no guarding, no rebound tenderness, normoactive bowel sounds. Rectal: Deferred. GENITOURINARY: Female genitalia within normal limits. EXTREMITIES: No cyanosis, clubbing or edema. Problems: Exam/Review of Systems Vital Signs Vitals Vital Signs Date Time Temp Pulse Resp B/P Pulse Ox O2 Delivery O2 Flow Rate FiO2 01/15/17 16:00 82 01/15/17 11:00 9 139/82 97 Room Air 01/15/17 10:00 98.4 Intake and Output 01/14/17 01/14/17 01/15/17 15:00 23:00 07:00 Intake Total 1550 ml 800 ml 625 ml Output Total 875 ml 605 ml 340 ml Balance 675 ml 195 ml 285 ml Results Result Diagram: 01/15/17 1649 01/15/17 1205 Results 24 hrs Laboratory Tests Test 01/14/17 17:55 01/14/17 19:56 01/14/17 22:11 01/15/17 00:01 Hemoglobin 7.9 L Hematocrit 21.9 L Sodium Level 120 L 121 L 122 L Potassium Level 4.3 4.3 4.0 Chloride Level 91 L 93 L 91 L Carbon Dioxide Level 24 25 24 Anion Gap 9 7 L 11 Blood Urea Nitrogen 35 H 34 H 31 H Creatinine 1.35 H 1.36 H 1.31 H Glucose Level 145 128 135 Calcium Level 8.3 L 8.7 8.6 Urine Color YELLOW Urine Clarity CLEAR Urine pH 5.0 Urine Specific [place] 1.014 Urine Ketones NEGATIVE Urine Nitrite NEGATIVE Urine Bilirubin NEGATIVE Urine Urobilinogen NEGATIVE Urine Leukocyte Esterase 1+ H Urine Microscopic RBC 2 Urine Microscopic WBC 9 H Urine Bacteria FEW A Urine Mucus FEW A Urine Hemoglobin 1+ H Urine Random Creatinine 75.38 Urine Random Sodium 64 Urine Glucose NEGATIVE Urine Total Protein 18.0 H Urine Opiates Screen Negative Urine Barbiturates Negative Urine Amphetamines Screen Negative Urine Benzodiazepines Screen Positive Urine Cocaine Screen Negative Urine Cannabinoids Negative Test 01/15/17 00:30 01/15/17 03:30 01/15/17 04:46 01/15/17 06:20 Hemoglobin 7.5 L 7.3 L Hematocrit 20.9 L 20.1 L White Blood Count 6.7 Red Blood Count 2.34 L Mean Corpuscular Volume 85.9 Mean Corpuscular Hemoglobin 31.2 Mean Corpuscular Hemoglobin Concent 36.3 Red Cell Distribution Width 15.0 H Platelet Count 173 Mean Platelet Volume 8.9 Neutrophils % 62.4 Lymphocytes % 17.4 Monocytes % 12.3 H Eosinophils % 1.5 Basophils % 0.3 Nucleated Red Blood Cells % 0.0 Neutrophils # 4.2 Lymphocytes # 1.2 Monocytes # 0.8 Eosinophils # 0.1 Basophils # 0.0 Nucleated Red Blood Cells # 0.0 Sodium Level 119 *L 120 L Potassium Level 3.9 3.9 Chloride Level 90 L 90 L Carbon Dioxide Level 24 25 Anion Gap 9 9 Blood Urea Nitrogen 28 H 25 H Creatinine 1.26 H 1.21 H Glucose Level 128 117 Calcium Level 8.3 L 8.6 Phosphorus Level 3.4 Magnesium Level 1.8 Lab Scanned Report BLOOD TRANSFUSION Test 01/15/17 08:30 01/15/17 09:17 01/15/17 12:03 01/15/17 12:05 Urine Osmolality 493 # Urine Random Sodium 64 Sodium Level 122 L 121 L Hemoglobin 8.6 L Hematocrit 24.2 #L Test 01/15/17 16:49 Hemoglobin 8.4 L Hematocrit 23.7 L Medications Medications Current Medications Ondansetron HCl (Zofran Inj) 4 mg Q6H PRN IV NAUSEA AND/OR VOMITING Last administered on 01/14/17 16:05; Admin Dose 4 MG; Start 01/14/17 at 00:00 Pantoprazole (Protonix Iv) 40 mg BID@06,18 IV Last administered on 01/15/17 06 :09; Admin Dose 40 MG; Start 01/14/17 at 06:00 Clonidine (Catapres) 0.1 mg TID PRN PO ELEVATED BLOOD PRESSURE; Start 01/14/17 at 02:00 Escitalopram Oxalate (Lexapro) 20 mg DAILY PO Last administered on 01/15/17 08 :35; Admin Dose 20 MG; Start 01/14/17 at 09:00 Pramipexole 0.5 mg 0.5 mg HS PO Last administered on 01/14/17 21:30; Admin Dose 0.5 MG; Start 01/14/17 at 21:00 Norepinephrine/ Dextrose (Levophed/D5W) 500 ml @ 1.87 mls/hr TITRATE IV ; Start 01/14/17 at 09:00 Lorazepam (Ativan) 1 mg Q6H PRN IV AGITATION/ANXIETY; Start 01/14/17 at 07:30 Morphine Sulfate 2 mg 2 mg Q4H PRN IV PAIN Last administered on 01/15/17 14:00 ; Admin Dose 2 MG; Start 01/15/17 at 00:00 Sodium Chloride 1,000 ml @ 75 mls/hr [id number] IV Last administered on 05:16; Admin Dose 75 MLS/HR; Start 01/15/17 at 05:00 Meropenem/Sodium Chloride (Merrem 1 Gm/50 ml (Pmx)) 50 ml @ 100 mls/hr Q12 IVPB ; Start 01/15/17 at 23:00 Sucralfate (Carafate Susp) 1 gm QID PO ; Start 01/15/17 at 17:00 Copies To: CC: MARIANNE COREY MD, ANASTASIA NP Jan 15, 2017 17:46
[2017-01-15] MEDS: PRAMIPEXOLE 0.25 MG TAB PO SCH (21:03)
[2017-01-15] MEDS: MEROPENEM 1 GM/50ML(PMX) 50 ML IVPB SCH (23:52)
[2017-01-16] VITALS (20 sets, daily range): BP systolic 100–160; BP diastolic 49–94; PULSE 68–111; RESP 8–20
[2017-01-16 05:51] LABS: BASOPHILS % 0.4 % (0.0-2.0); EOSINOPHILS # 0.1 10^3/ul (0.0-0.5); EOSINOPHILS % 2.7 % (0.0-7.0); HEMATOCRIT 22.6 % (37.0-47.0); LYMPHOCYTES # 1.1 10^3/ul (0.8-2.9); LYMPHOCYTES % 22.6 % (15.0-51.0); MEAN CORPUSCULAR HEMOGLOBIN 30.8 pg (29.0-33.0); MEAN CORPUSCULAR HGB CONC 35.4 g/dl (32.0-37.0); MEAN CORPUSCULAR VOLUME 86.9 fl (82.0-101.0); MEAN PLATELET VOLUME 8.9 fl (7.4-10.4); MONOCYTE # 0.7 10^3/ul (0.3-0.9); MONOCYTES % 14.4 % (0.0-11.0); NEUTROPHIL # 2.7 10^3/ul (1.6-7.5); NEUTROPHILS % 55.4 % (39.0-77.0); PLATELET COUNT 166 10^3/UL (140-415); RED CELL DISTRIBUTION WIDTH 14.4 % (11.5-14.5); WHITE BLOOD COUNT 4.9 10^3/ul (4.8-10.8)
[2017-01-16 06:35] LABS: CALCIUM 8.4 mg/dl (8.4-10.2); CREATININE 1.01 mg/dl (0.44-1.00); MAGNESIUM 1.5 mg/dl (1.7-2.5); PHOSPHORUS 3.7 mg/dl (2.5-4.9); POTASSIUM 3.8 mmol/L (3.5-5.1)
[2017-01-16] MEDS: PANTOPRAZOLE 40 MG INJ IV SCH ×2 (06:45→18:00)
[2017-01-16] MEDS: morphine 2 MG INJ IV PRN ×4 (06:45→19:53)
[2017-01-16] MEDS: LEVOTHYROXINE 125 MCG TAB PO SCH (06:45)
[2017-01-16] MEDS ORDERED: MAGNESIUM SULFATE 2 GM/50 ML 50 ML IVPB ONE (08:30)
[2017-01-16] MEDS: ESCITALOPRAM 10 MG TAB PO SCH (09:00)
[2017-01-16] MEDS: SUCRALFATE (100 MG/ML) 10ML CUP PO SCH ×4 (09:00→21:51)
[2017-01-16] MEDS: MEROPENEM 1 GM/50ML(PMX) 50 ML IVPB SCH ×2 (09:09→22:28)
--- NOTE | 2017-01-16 10:40 | PN ---
DATE: 01/16/2017 NEPHROLOGY FOLLOWUP NOTE SUBJECTIVE: The patient is currently stable. No acute events overnight. No hemoptysis, hematemesi s or hematochezia. The patient has had no seizure episodes. The patient's sodium levels have been monitored throughout the day yesterday and currently is at 124 mEq per liter. OBJECTIVE: VITAL SIGNS: Blood pressure is 147/57, respirations 10, pulse 69, temperature 98.5. I's AND O'S: The patient had 2 liters in, with 2.2 liters out. HEENT: Head is normocephalic. NECK: Supple. HEART: Regular rate. LUNGS: Show diminished breath sounds at the base. ABDOMEN: Soft, nontender to palpation. No rebound or guarding. EXTREMITIES: Negative for clubbing, cyanosis. Trace edema. DERMATOLOGIC: No rashes. MUSCULOSKELETAL: No joint effusions. NEUROLOGIC: No change in exam. MEDICATIONS: The patient's medications have been reviewed. LABORATORY DATA: Shows sodium 124, potassium 3.8, chloride 93, BUN 14, creatinine 1.1, magnesium 1. 5. White count is 4.9, hemoglobin 8.0, hematocrit 22.6, platelet count is 166. Repeat urinalysis f rom 01/15/2017, showed urine osmolarity of 423, urine sodium was 64. ASSESSMENT AND PLAN: 1. Severe hyponatremia. Etiology is likely acute on chronic. The patient's initial presentation w as consistent with volume depletion as patient had a FENa of less than 1%. The patient, however, no w is euvolemic and currently urine studies are more suggestive of a possible SIADH state. At this p oint, would recommend to discontinue IV fluids. We will place the patient on free water restriction of no more than 800 mL daily. We will monitor closely. Encourage high osmolar diet. If the patie nt's sodium levels do not improved, may consider adding salt tablets, diuretics and/or demeclocyclin e. 2. Nonoliguric acute kidney injury on top of chronic kidney disease with previous baseline creatini ne 1.0 mg/dL. The etiology of the acute kidney injury is secondary to volume depletion. Renal func tion has returned back to baseline. Continue current treatment plan, supportive care, renally dose all meds. 3. Severe anemia with acute gastrointestinal bleed. The patient is status post EGD with findings o f esophagitis. Continue Protonix. 4. Mineral bone disorder. Monitor calcium and phosphorus levels. 5. Status post shock, felt to be hypovolemic, questionable septic. The patient is currently on ant ibiotic therapy, continue. 6. Hypothyroidism. Continue Synthroid. 7. History of alcohol abuse. 8. Hypertension. Please note I spent over 40 minutes of critical care time with this patient. Dictated By: ONEIL EDMONDSON/DINAH Conf#: [id number] DID#: [id number]
--- NOTE | 2017-01-16 10:51 | PN ---
Date/Time of Note Date/Time of Note DATE: 01/16/17 TIME: 10:45 Assessment/Plan VTE Prophylaxis VTE Prophylaxis Intervention: SCD's Lines/Catheters IV Catheter Type (from Nrs): Mid Line Urinary Cath still in place: Yes Reason Cath still needed: other (indicate) (monitor output) Assessment/Plan Chief Complaint/Hosp Course Chief Complaint/Hosp Course Severe Anemia S/P EGD Mild distal esophagitis. Post gastrojejunostomy Billroth II Preserved pylorus and proximal duodenum Ulceration in both the afferent and efferent jejunal loops. Moderate gastritis. Rule out H. pylori infection. History of gastric ulcers History of alcohol abuse ESBL positive - in isolation Severe hyponatremia/improved Acute on chronic kidney injury: Hypothyroidism HTN Depression Plan: Continue Protonix 40 mg and Carafate Monitor H&H and transfuse for hemoglobin less than 7.5. Monitor for hyponatremia Pathology reviewed and copied below Stomach, biopsy: -- Antral mucosa showing reactive gastropathy and focal minimal acute inflammation. -- No Helicobacter pylori is identified in Giemsa stain (positive control concurrently reviewed). -- No evidence of intestinal metaplasia, dysplasia or malignancy. Start renal diet advance as tolerated Plan for upper GI series tomorrow to further define the postoperative anatomy Subjective: Patient is feeling better today, eating well, no c/o nausea or vomiting. will continue to monitor H/H, if remains stable will order upper GI series tomorrow PHYSICAL EXAMINATION: GENERAL: Well developed, obese, well nourished, alert & oriented x 3, in no acute distress SKIN: No lesions, no stigmata chronic liver disease, no evidence of bleeding diathesis LYMPHATIC: No palpable lymphadenopathy. HEAD: Normocephalic, atraumatic, no tenderness. EYES: Pupils equal reactive to light and accommodation, full extraocular movements, sclera clear, non-icteric, no discharge. EARS/NOSE AND THROAT: Ears normal, nose normal, oropharynx normal, oral membranes well hydrated without lesions. NECK: Supple, no masses, thyroid normal, JVP within normal limits, carotids normal without bruits. CHEST: Inspection within normal limits. CARDIOVASCULAR: Heart: Regular rate and rhythm, n RESPIRATORY: Lungs clear to auscultation GASTROINTESTINAL AND LIVER: Abdomen: Soft, obese, non tenderness, non-distended , no hernias, no masses, no organomegaly, no ascites, no guarding, no rebound tenderness, normoactive bowel sounds. Rectal: Deferred. GENITOURINARY: Female genitalia within normal limits. . Problems: Exam/Review of Systems Vital Signs Vitals Vital Signs Date Time Temp Pulse Resp B/P Pulse Ox O2 Delivery O2 Flow Rate FiO2 01/16/17 10:00 70 10 113/73 99 Room Air 01/16/17 08:00 98.4 Intake and Output 01/15/17 01/15/17 01/16/17 15:00 23:00 07:00 Intake Total 50 ml 1187 ml 770 ml Output Total 1000 ml 1200 ml Balance 50 ml 187 ml -430 ml Results Result Diagram: 01/16/17 0500 01/16/17 0500 Results 24 hrs Laboratory Tests Test 01/15/17 12:03 01/15/17 12:05 01/15/17 16:49 01/15/17 21:24 Hemoglobin 8.6 L 8.4 L Hematocrit 24.2 #L 23.7 L Sodium Level 121 L 121 L 121 L Test 01/16/17 04:47 01/16/17 05:00 01/16/17 09:35 Lab Scanned Report BLOOD TRANSFUSION White Blood Count 4.9 # Red Blood Count 2.60 L Hemoglobin 8.0 L Hematocrit 22.6 L Mean Corpuscular Volume 86.9 Mean Corpuscular Hemoglobin 30.8 Mean Corpuscular Hemoglobin Concent 35.4 Red Cell Distribution Width 14.4 Platelet Count 166 Mean Platelet Volume 8.9 Neutrophils % 55.4 Lymphocytes % 22.6 Monocytes % 14.4 H Eosinophils % 2.7 Basophils % 0.4 Nucleated Red Blood Cells % 0.0 Neutrophils # 2.7 Lymphocytes # 1.1 Monocytes # 0.7 Eosinophils # 0.1 Basophils # 0.0 Nucleated Red Blood Cells # 0.0 Sodium Level 124 L Potassium Level 3.8 Chloride Level 93 L Carbon Dioxide Level 28 Anion Gap 7 L Blood Urea Nitrogen 14 # Creatinine 1.01 H Glucose Level 96 Calcium Level 8.4 Phosphorus Level 3.7 Magnesium Level 1.5 L Urine Random Sodium 26 L Medications Medications Current Medications Ondansetron HCl (Zofran Inj) 4 mg Q6H PRN IV NAUSEA AND/OR VOMITING Last administered on 01/14/17t 16:05; Admin Dose 4 MG; Start 01/14/17 at 00:00 Pantoprazole (Protonix Iv) 40 mg BID@06,18 IV Last administered on 01/16/17 06 :45; Admin Dose 40 MG; Start 01/14/17 at 06:00 Clonidine (Catapres) 0.1 mg TID PRN PO ELEVATED BLOOD PRESSURE; Start 01/14/17 at 02:00 Escitalopram Oxalate (Lexapro) 20 mg DAILY PO Last administered on 01/16/17 09 :00; Admin Dose 20 MG; Start 01/14/17 at 09:00 Pramipexole 0.5 mg 0.5 mg HS PO Last administered on 01/15/17 21:03; Admin Dose 0.5 MG; Start 01/14/17 at 21:00 Norepinephrine/ Dextrose (Levophed/D5W) 500 ml @ 1.87 mls/hr TITRATE IV ; Start 01/14/17 at 09:00 Lorazepam (Ativan) 1 mg Q6H PRN IV AGITATION/ANXIETY; Start 01/14/17 at 07:30 Morphine Sulfate 2 mg 2 mg Q4H PRN IV PAIN Last administered on 01/16/17 06:45 ; Admin Dose 2 MG; Start 01/15/17 at 00:00 Meropenem/Sodium Chloride (Merrem 1 Gm/50 ml (Pmx)) 50 ml @ 100 mls/hr Q12 IVPB Last administered on 01/16/17 09:09; Admin Dose 100 MLS/HR; Start at 23:00 Sucralfate (Carafate Susp) 1 gm QID PO Last administered on 01/16/17 09:00; Admin Dose 1 GM; Start 01/15/17 at 17:00 YVES REAL Jan 16, 2017 10:51
[2017-01-16 14:26] LABS: CALCIUM 8.4 mg/dl (8.4-10.2); CREATININE 0.93 mg/dl (0.44-1.00); POTASSIUM 3.9 mmol/L (3.5-5.1)
[2017-01-16 14:57] LABS: MICROALBUMIN 4.1 mg/dL
--- NOTE | 2017-01-16 16:29 | PN ---
Date/Time of Note Date/Time of Note DATE: 01/16/17 TIME: 16:27 Assessment/Plan VTE Prophylaxis VTE Prophylaxis Intervention: SCD's Assessment/Plan Chief Complaint/Hosp Course This is a 58-year-old female who was originally admitted to the telemetry floor however she was subsequently transferred to the ICU for: #1 GI bleed status post EGD EGD shows mild distal esophagitis, Post gastrojejunostomy Billroth II, moderate gastritis, ulceration in both the afferent and efferent jejunal loops. No stigmata recent bleeding. Continue PPI and Carafate Patient is status post 3 units of packed blood cells Follow-up on biopsies #2 Hypotension secondary to severe dehydration-resolved IV fluids Continue IV fluids #3 Severe hyponatremia: Likely multifactorial secondary to volume depletion as well as diuretics-improving Continue IV fluids with normal saline Nephrology consultation appreciated Hold diuretics #4 Acute on chronic kidney disease secondary to dehydration-improved with fluids Continue IV fluids Nephrology consultation appreciated #5 hypothyroidism Continue home Synthroid #6 hypertension Hold home meds secondary to above #7 depression: Continue home meds #8 history of alcohol abuse-currently denies any alcohol abuse Toxicology is negative #9 urinary tract infection Continue Rocephin Follow-up on culture #10 Debility with bedsores Wound care consult appreciated Patient resides in assisted living PT eval DVT GI prophylaxis: SCDs, Protonix IV Problems: Subjective 24 Hr Interval Summary Constitutional: no complaints Exam/Review of Systems Vital Signs Vitals Vital Signs Date Time Temp Pulse Resp B/P Pulse Ox O2 Delivery O2 Flow Rate FiO2 01/16/17 16:00 98.2 95 11 135/87 100 Room Air Intake and Output 01/15/17 01/15/17 01/16/17 14:59 22:59 06:59 Intake Total 75 ml 1237 ml 770 ml Output Total 1000 ml 1200 ml Balance 75 ml 237 ml -430 ml Exam Constitutional: alert Respiratory: clear to auscultation Cardiovascular: regular rate and rhythm Gastrointestinal: soft, No distended Musculoskeletal: nl extremities to inspection Results Result Diagram: 01/16/17 0500 01/16/17 1349 Results 24 hrs Laboratory Tests Test 01/15/17 16:49 01/15/17 21:24 01/16/17 04:47 01/16/17 05:00 Hemoglobin 8.4 L 8.0 L Hematocrit 23.7 L 22.6 L Sodium Level 121 L 121 L 124 L Lab Scanned Report BLOOD TRANSFUSION White Blood Count 4.9 # Red Blood Count 2.60 L Mean Corpuscular Volume 86.9 Mean Corpuscular Hemoglobin 30.8 Mean Corpuscular Hemoglobin Concent 35.4 Red Cell Distribution Width 14.4 Platelet Count 166 Mean Platelet Volume 8.9 Neutrophils % 55.4 Lymphocytes % 22.6 Monocytes % 14.4 H Eosinophils % 2.7 Basophils % 0.4 Nucleated Red Blood Cells % 0.0 Neutrophils # 2.7 Lymphocytes # 1.1 Monocytes # 0.7 Eosinophils # 0.1 Basophils # 0.0 Nucleated Red Blood Cells # 0.0 Potassium Level 3.8 Chloride Level 93 L Carbon Dioxide Level 28 Anion Gap 7 L Blood Urea Nitrogen 14 # Creatinine 1.01 H Glucose Level 96 Calcium Level 8.4 Phosphorus Level 3.7 Magnesium Level 1.5 L Test 01/16/17 09:35 01/16/17 13:49 Urine Osmolality 156 #L Urine Random Sodium 26 L Sodium Level 126 L Potassium Level 3.9 Chloride Level 95 L Carbon Dioxide Level 28 Anion Gap 7 L Blood Urea Nitrogen 13 Creatinine 0.93 Glucose Level 116 Calcium Level 8.4 Medications Medications Current Medications Ondansetron HCl (Zofran Inj) 4 mg Q6H PRN IV NAUSEA AND/OR VOMITING Last administered on 01/14/17 16:05; Admin Dose 4 MG; Start 01/14/17 at 00:00 Pantoprazole (Protonix Iv) 40 mg BID@06,18 IV Last administered on 01/16/17 06 :45; Admin Dose 40 MG; Start 01/14/17 at 06:00 Clonidine (Catapres) 0.1 mg TID PRN PO ELEVATED BLOOD PRESSURE; Start 01/14/17 at 02:00 Escitalopram Oxalate (Lexapro) 20 mg DAILY PO Last administered on 01/16/17 09 :00; Admin Dose 20 MG; Start 01/14/17 at 09:00 Pramipexole 0.5 mg 0.5 mg HS PO Last administered on 01/15/17 21:03; Admin Dose 0.5 MG; Start 01/14/17 at 21:00 Norepinephrine/ Dextrose (Levophed/D5W) 500 ml @ 1.87 mls/hr TITRATE IV ; Start 01/14/17 at 09:00 Lorazepam (Ativan) 1 mg Q6H PRN IV AGITATION/ANXIETY; Start 01/14/17 at 07:30 Morphine Sulfate 2 mg 2 mg Q4H PRN IV PAIN Last administered on 01/16/17 16:06 ; Admin Dose 2 MG; Start 01/15/17 at 00:00 Meropenem/Sodium Chloride (Merrem 1 Gm/50 ml (Pmx)) 50 ml @ 100 mls/hr Q12 IVPB Last administered on 01/16/17 09:09; Admin Dose 100 MLS/HR; Start at 23:00 Sucralfate (Carafate Susp) 1 gm QID PO Last administered on 01/16/17 13:00; Admin Dose 1 GM; Start 01/15/17 at 17:00 AKIN BENITEZ Jan 16, 2017 16:29
[2017-01-16] MEDS: PRAMIPEXOLE 0.25 MG TAB PO SCH (21:50)
[2017-01-17] MEDS: morphine 2 MG INJ IV PRN ×4 (00:34→19:59)
[2017-01-17 02:00] VITALS: BP 119/62; RESP 19
[2017-01-17] MEDS: LEVOTHYROXINE 125 MCG TAB PO SCH (05:44)
[2017-01-17] MEDS: PANTOPRAZOLE 40 MG INJ IV SCH ×2 (05:44→17:33)
[2017-01-17 07:35] VITALS: BP 140/76; RESP 18
[2017-01-17] MEDS: ESCITALOPRAM 10 MG TAB PO SCH (09:26)
[2017-01-17] MEDS: SUCRALFATE (100 MG/ML) 10ML CUP PO SCH ×4 (09:26→22:28)
[2017-01-17] MEDS: MEROPENEM 1 GM/50ML(PMX) 50 ML IVPB SCH ×2 (09:33→22:27)
--- NOTE | 2017-01-17 09:51 | PN ---
Date/Time of Note Date/Time of Note DATE: 01/17/17 TIME: 09:45 Assessment/Plan VTE Prophylaxis VTE Prophylaxis Intervention: SCD's Lines/Catheters [facility] [place] Assessment/Plan Chief Complaint/Hosp Course Chief Complaint/Hosp Course Severe Anemia S/P EGD Mild distal esophagitis. Post gastrojejunostomy Billroth II Preserved pylorus and proximal duodenum Ulceration in both the afferent and efferent jejunal loops. Moderate gastritis. Rule out H. pylori infection. History of gastric ulcers History of alcohol abuse ESBL positive - in isolation Severe hyponatremia/improved Acute on chronic kidney injury: Hypothyroidism HTN Depression Plan: Continue Protonix 40 mg and Carafate Monitor H&H and transfuse for hemoglobin less than 7.5. Continue renal diet Plan for upper GI series tomorrow to further define the postoperative anatomy Patient seen in collaboration with Dr. Campos Subjective: Course reviewed with nursing staff Patient interviewed and examined All labs, imaging and other results reviewed The patient feel well resting in bed, P.T. at bedside to work with patient. Hgb for today has been drawn and currently processing, no results as of yet. No overt signs of GI bleed noted, will order upper GI series for today. PHYSICAL EXAMINATION: GENERAL: Well developed, obese, well nourished, alert & oriented x 3, in no acute distress SKIN: No lesions, no stigmata chronic liver disease, no evidence of bleeding diathesis LYMPHATIC: No palpable lymphadenopathy. HEAD: Normocephalic, atraumatic, no tenderness. EYES: Pupils equal reactive to light and accommodation, full extraocular movements, sclera clear, non-icteric, no discharge. EARS/NOSE AND THROAT: Ears normal, nose normal, oropharynx normal, oral membranes well hydrated without lesions. NECK: Supple, no masses, thyroid normal, JVP within normal limits, carotids normal without bruits. CHEST: Inspection within normal limits. CARDIOVASCULAR: Heart: Regular rate and rhythm, n RESPIRATORY: Lungs clear to auscultation GASTROINTESTINAL AND LIVER: Abdomen: Soft, obese, non tenderness, non-distended , no hernias, no masses, no organomegaly, no ascites, no guarding, no rebound tenderness, normoactive bowel sounds. Rectal: Deferred. GENITOURINARY: Female genitalia within normal limits. . Problems: Exam/Review of Systems Vital Signs Vitals Vital Signs Date Time Temp Pulse Resp B/P Pulse Ox O2 Delivery O2 Flow Rate FiO2 01/17/17 07:35 98.8 83 18 140/76 95 01/16/17 18:00 Room Air Intake and Output 01/16/17 01/16/17 01/17/17 14:59 22:59 06:59 Intake Total 480 ml 650 ml Output Total 900 ml 220 ml 1000 ml Balance -420 ml -220 ml -350 ml Results Result Diagram: 01/16/17 0500 01/16/17 1349 Results 24 hrs Laboratory Tests Test 01/16/17 13:49 Sodium Level 126 L Potassium Level 3.9 Chloride Level 95 L Carbon Dioxide Level 28 Anion Gap 7 L Blood Urea Nitrogen 13 Creatinine 0.93 Glucose Level 116 Calcium Level 8.4 Medications Medications Current Medications Ondansetron HCl (Zofran Inj) 4 mg Q6H PRN IV NAUSEA AND/OR VOMITING Last administered on 01/14/17 16:05; Admin Dose 4 MG; Start 01/14/17 at 00:00 Pantoprazole (Protonix Iv) 40 mg BID@06,18 IV Last administered on 01/17/17 05 :44; Admin Dose 40 MG; Start 01/14/17 at 06:00 Clonidine (Catapres) 0.1 mg TID PRN PO ELEVATED BLOOD PRESSURE; Start 01/14/17 at 02:00 Escitalopram Oxalate (Lexapro) 20 mg DAILY PO Last administered on 01/17/17 09 :26; Admin Dose 20 MG; Start 01/14/17 at 09:00 Pramipexole 0.5 mg 0.5 mg HS PO Last administered on 01/16/17 21:50; Admin Dose 0.5 MG; Start 01/14/17 at 21:00 Norepinephrine/ Dextrose (Levophed/D5W) 500 ml @ 1.87 mls/hr TITRATE IV ; Start 01/14/17 at 09:00 Lorazepam (Ativan) 1 mg Q6H PRN IV AGITATION/ANXIETY; Start 01/14/17 at 07:30 Morphine Sulfate 2 mg 2 mg Q4H PRN IV PAIN Last administered on 01/17/17 00:34 ; Admin Dose 2 MG; Start 01/15/17 at 00:00 Meropenem/Sodium Chloride (Merrem 1 Gm/50 ml (Pmx)) 50 ml @ 100 mls/hr Q12 IVPB Last administered on 01/17/17 09:33; Admin Dose 100 MLS/HR; Start at 23:00 Sucralfate (Carafate Susp) 1 gm QID PO Last administered on 01/17/17 09:26; Admin Dose 1 GM; Start 01/15/17 at 17:00 YVES REAL Jan 17, 2017 09:51
[2017-01-17 10:11] LABS: CALCIUM 8.6 mg/dl (8.4-10.2); CREATININE 0.88 mg/dl (0.44-1.00); MAGNESIUM 1.6 mg/dl (1.7-2.5); PHOSPHORUS 3.1 mg/dl (2.5-4.9); POTASSIUM 3.7 mmol/L (3.5-5.1)
--- NOTE | 2017-01-17 10:49 | PN ---
DATE: 01/17/2017 SUBJECTIVE: The patient was transferred from the intensive care unit to med/surg. No other events noted overnight. OBJECTIVE: VITAL SIGNS: Blood pressure is 140/76, respiration 18, pulse 83, temperature 98.8. HEENT: Head is normocephalic. NECK: Supple. HEART: Regular rate. LUNGS: Show diminished breath sounds at the base. ABDOMEN: Soft, nontender to palpation. No rebound or guarding. EXTREMITIES: Negative for clubbing, cyanosis. No edema. DERMATOLOGIC: No rashes. MUSCULOSKELETAL: No joint effusions. NEUROLOGIC: No change in exam. MEDICATIONS: The patient's medications have been reviewed. LABORATORY DATA: Shows sodium 126, potassium 3.9, chloride 95, BUN 13, creatinine 0.93. White coun t 12.9, hemoglobin 8.0, hematocrit 22.7, platelet count is 166. ASSESSMENT AND PLAN: 1. Severe hyponatremia, etiology initially was felt to be secondary to volume depletion; however, the possibility of a low solute state in conjunction with primary polydipsia is a strong considerati on. The patient's urinary sodium levels and urinary osmolarity continues to show the capacity of st ving a dilute urine. These findings are more suggestive of polydipsia and low solute intake. Would therefore recommend for the patient to limit free water intake to no more than 800 mL daily. We wi ll continue normal saline, continue to encourage high osmolar diet and monitor sodium levels closely . 2. Nonoliguric acute kidney injury. Etiology was secondary to hemodynamics. Renal function is imp roved. Continue current treatment plan, supportive care, renally dose all medications. 3. Severe anemia with acute gastrointestinal bleed. The patient is status post esophagogastroduode noscopy. Continue Protonix. Hemoglobin levels have been stable. 4. Mineral bone disorder. Monitor calcium and phosphorus levels. 5. Status post shock, etiology is felt to be hypovolemia, questionable sepsis. Continue to monitor . 6. Hypothyroidism. Continue Synthroid. 7. History of alcohol abuse. Dictated By: ONEIL EDMONDSON/NTS Conf#: [id number] DID#: [id number] CC: MEKA SUE MD;*EndCC*
[2017-01-17] MEDS ORDERED: MAGNESIUM SULFATE 2 GM/50 ML 50 ML IVPB ONE (12:30)
[2017-01-17 15:34] VITALS: BP 125/83; RESP 18
--- NOTE | 2017-01-17 17:50 | PN ---
Date/Time of Note Date/Time of Note DATE: 01/17/17 TIME: 17:47 Assessment/Plan VTE Prophylaxis VTE Prophylaxis Intervention: SCD's Lines/Catheters IV [facility]from [facility] Peripheral IV Assessment/Plan Chief Complaint/Hosp Course #1 GI bleed status post EGD EGD shows mild distal esophagitis, Post gastrojejunostomy Billroth II, moderate gastritis, ulceration in both the afferent and efferent jejunal loops. No stigmata recent bleeding. Continue PPI and Carafate Patient is status post 3 units of packed blood cells Follow-up on biopsies #2 Hypotension secondary to severe dehydration-resolved with IV fluids #3 Severe hyponatremia: Likely multifactorial secondary to volume depletion as well as diuretics-improving Nephrology consultation appreciated Hold diuretics #4 Acute on chronic kidney disease secondary to dehydration-improved with fluids Nephrology consultation appreciated #5 hypothyroidism Continue home Synthroid #6 hypertension Hold home meds secondary to above #7 depression: Continue home meds #8 history of alcohol abuse-currently denies any alcohol abuse 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 #9 urinary tract infection Continue Rocephin Follow-up on culture #10 Debility with bedsores Wound care consult appreciated Patient resides in assisted living PT eval DVT GI prophylaxis: SCDs, Protonix IV Problems: Subjective 24 Hr Interval Summary Constitutional: no complaints Exam/Review of Systems Vital Signs Vitals Vital Signs Date Time Temp Pulse Resp B/P Pulse Ox O2 Delivery O2 Flow Rate FiO2 01/17/17 15:34 98.4 101 18 125/83 94 01/16/17 18:00 Room Air Intake and Output 01/16/17 01/16/17 01/17/17 15:00 23:00 07:00 Intake Total 480 ml 50 ml 600 ml Output Total 920 ml 100 ml 1000 ml Balance -440 ml -50 ml -400 ml Exam Constitutional: alert Respiratory: clear to auscultation Cardiovascular: regular rate and rhythm Gastrointestinal: soft, No distended Musculoskeletal: nl extremities to inspection Results Result Diagram: 01/16/17 0500 01/17/17 0935 Results 24 hrs Laboratory Tests Test 01/17/17 09:35 Sodium Level 129 L Potassium Level 3.7 Chloride Level 95 L Carbon Dioxide Level 28 Anion Gap 10 Blood Urea Nitrogen 10 Creatinine 0.88 Glucose Level 134 Calcium Level 8.6 Phosphorus Level 3.1 Magnesium Level 1.6 L Medications Medications Current Medications Ondansetron HCl (Zofran Inj) 4 mg Q6H PRN IV NAUSEA AND/OR VOMITING Last administered on 01/14/17 16:05; Admin Dose 4 MG; Start 01/14/17 at 00:00 Pantoprazole (Protonix Iv) 40 mg BID@06,18 IV Last administered on 01/17/17 17 :33; Admin Dose 40 MG; Start 01/14/17 at 06:00 Clonidine (Catapres) 0.1 mg TID PRN PO ELEVATED BLOOD PRESSURE Last administered on 01/17/17 14:22; Admin Dose 0.1 MG; Start 01/14/17 at 02:00 Escitalopram Oxalate (Lexapro) 20 mg DAILY PO Last administered on 01/17/17 09 :26; Admin Dose 20 MG; Start 01/14/17 at 09:00 Pramipexole 0.5 mg 0.5 mg HS PO Last administered on 01/16/17 21:50; Admin Dose 0.5 MG; Start 01/14/17 at 21:00 Norepinephrine/ Dextrose (Levophed/D5W) 500 ml @ 1.87 mls/hr TITRATE IV ; Start 01/14/17 at 09:00 Lorazepam (Ativan) 1 mg Q6H PRN IV AGITATION/ANXIETY; Start 01/14/17 at 07:30 Morphine Sulfate 2 mg 2 mg Q4H PRN IV PAIN Last administered on 01/17/17 14:22 ; Admin Dose 2 MG; Start 01/15/17 at 00:00 Meropenem/Sodium Chloride (Merrem 1 Gm/50 ml (Pmx)) 50 ml @ 100 mls/hr Q12 IVPB Last administered on 01/17/17 09:33; Admin Dose 100 MLS/HR; Start at 23:00 Sucralfate (Carafate Susp) 1 gm QID PO Last administered on 01/17/17 17:33; Admin Dose 1 GM; Start 01/15/17 at 17:00 AKIN BENITEZ Jan 17, 2017 17:50
[2017-01-17 20:00] VITALS: BP 131/58; RESP 20
[2017-01-17] MEDS: PRAMIPEXOLE 0.25 MG TAB PO SCH (22:28)
[2017-01-18] MEDS: morphine 2 MG INJ IV PRN ×6 (01:03→23:28)
[2017-01-18 02:00] VITALS: BP 130/56; RESP 18
[2017-01-18] MEDS: PANTOPRAZOLE 40 MG INJ IV SCH ×2 (05:34→17:43)
[2017-01-18] MEDS: LEVOTHYROXINE 125 MCG TAB PO SCH (05:34)
[2017-01-18 07:08] LABS: CALCIUM 8.5 mg/dl (8.4-10.2); CREATININE 0.73 mg/dl (0.44-1.00); MAGNESIUM 1.9 mg/dl (1.7-2.5); POTASSIUM 3.8 mmol/L (3.5-5.1)
[2017-01-18 07:35] VITALS: BP 131/94; RESP 16
[2017-01-18] MEDS: SUCRALFATE (100 MG/ML) 10ML CUP PO SCH ×4 (09:23→20:12)
[2017-01-18] MEDS: ESCITALOPRAM 10 MG TAB PO SCH (09:23)
[2017-01-18] MEDS: MEROPENEM 1 GM/50ML(PMX) 50 ML IVPB SCH ×2 (09:23→20:12)
--- NOTE | 2017-01-18 09:47 | PN ---
DATE: 01/18/2017 SUBJECTIVE: The patient is stable. No events overnight. No fevers, chills, nausea, vomiting. OBJECTIVE: VITAL SIGNS: Blood pressure is 131/94, pulse 84, respirations 16, temperature 97.5. HEENT: Head is normocephalic. NECK: Supple. HEART: Regular rate. LUNGS: Show diminished breath sounds at base. ABDOMEN: Soft, nontender to palpation. No rebound or guarding. EXTREMITIES: Negative for clubbing, cyanosis, no edema. DERMATOLOGIC: No rashes. MUSCULOSKELETAL: No joint effusions. NEUROLOGIC: No change in exam. MEDICATIONS: The patient's medications have been reviewed. LABORATORY DATA: Showed sodium 130, BUN 9, creatinine 0.73. White count 4.9, hemoglobin 8.0, plate let count is 166. ASSESSMENT AND PLAN: 1. Severe hyponatremia. Etiology initially was multifactorial secondary to volume depletion. 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 At this point , would recommend to limit free water intake to no more than 800 mL daily. Continue to encourage hi gh osmolar diet and monitor sodium levels closely. 2. Nonoliguric acute kidney injury, resolved. Etiology is secondary to hemodynamics. Continue to monitor. Continue supportive care, renally dose all meds, avoid nephrotoxins. 3. Severe anemia with a GI bleed. The patient is status post blood transfusion. Continue Protonix . 4. Mineral bone disorder. Monitor calcium and phosphorus levels. 5. Status post shock. 6. Hypothyroidism. 7. History of alcohol abuse. Dictated By: ONEIL EDMONDSON/DINAH Conf#: [id number] DID#: [id number]
[2017-01-18] MEDS ORDERED: CARAS PO (10:56)
[2017-01-18] MEDS ORDERED: PANT40TA3 PO (10:56)
[2017-01-18 14:12] VITALS: BP 142/93; RESP 18
[2017-01-18 14:32] LABS: ADD UMIC NO; UR ASCORBIC ACID NEGATIVE (NEGATIVE); UR BILIRUBIN (Dip) NEGATIVE (NEGATIVE); UR BLOOD (Dip) NEGATIVE (NEGATIVE); UR CLARITY CLEAR (CLEAR); UR COLOR YELLOW (YELLOW); UR GLUCOSE (Dip) NEGATIVE (NEGATIVE); UR KETONES (Dip) NEGATIVE (NEGATIVE); UR LEUKOCYTE ESTERASE (Dip) NEGATIVE Leu/ul (NEGATIVE); UR NITRITE (Dip) NEGATIVE (NEGATIVE); UR TOTAL PROTEIN (Dip) NEGATIVE (NEGATIVE); UR UROBILINOGEN (Dip) 1+ mg/dL (NEGATIVE)
--- NOTE | 2017-01-18 14:34 | PN ---
Date/Time of Note Date/Time of Note DATE: 01/18/17 TIME: 14:32 Assessment/Plan VTE Prophylaxis VTE Prophylaxis Intervention: SCD's Lines/Catheters IV [facility] Saline Lock Assessment/Plan Chief Complaint/Hosp Course #1 GI bleed status post EGD EGD shows mild distal esophagitis, Post gastrojejunostomy Billroth II, moderate gastritis, ulceration in both the afferent and efferent jejunal loops. No stigmata recent bleeding. Continue PPI and Carafate Patient is status post 3 units of packed blood cells Follow-up on biopsies #2 Hypotension secondary to severe dehydration-resolved with IV fluids #3 Severe hyponatremia: Likely multifactorial secondary to volume depletion as well as diuretics-improving Nephrology consultation appreciated Hold diuretics Fluid restriction #4 Acute on chronic kidney disease secondary to dehydration-improved with fluids Nephrology consultation appreciated #5 hypothyroidism Continue home Synthroid #6 hypertension Hold home meds secondary to above #7 depression: Continue home meds #8 history of alcohol abuse-currently denies any alcohol abuse 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 coli ID consultation #10 Debility with bedsores Wound care consult appreciated Patient resides in assisted living PT eval DVT GI prophylaxis: SCDs, Protonix IV Discharge planning: Patient refusing to go to a fpc, anticipate back to correction home in the next 1-2 days Problems: Subjective 24 Hr Interval Summary Constitutional: no complaints Exam/Review of Systems Vital Signs Vitals Vital Signs Date Time Temp Pulse Resp B/P Pulse Ox O2 Delivery O2 Flow Rate FiO2 01/18/17 14:12 98.0 95 18 142/93 95 01/16/17 18:00 Room Air Intake and Output 01/17/17 01/17/17 01/18/17 15:00 23:00 07:00 Intake Total 100 ml 720 ml 130 ml Output Total 500 ml 600 ml Balance 100 ml 220 ml -470 ml Exam Constitutional: alert Respiratory: clear to auscultation Cardiovascular: regular rate and rhythm Gastrointestinal: soft, No distended Musculoskeletal: nl extremities to inspection Results Result Diagram: 01/16/17 0500 01/18/17 0552 Results 24 hrs Laboratory Tests Test 01/18/17 05:52 Sodium Level 130 L Potassium Level 3.8 Chloride Level 95 L Carbon Dioxide Level 31 Anion Gap 8 Blood Urea Nitrogen 9 Creatinine 0.73 Glucose Level 110 Calcium Level 8.5 Phosphorus Level 3.0 Magnesium Level 1.9 Medications Medications Current Medications Ondansetron HCl (Zofran Inj) 4 mg Q6H PRN IV NAUSEA AND/OR VOMITING Last administered on 01/14/17 16:05; Admin Dose 4 MG; Start 01/14/17 at 00:00 Pantoprazole (Protonix Iv) 40 mg BID@06,18 IV Last administered on 01/18/17 05 :34; Admin Dose 40 MG; Start 01/14/17 at 06:00 Clonidine (Catapres) 0.1 mg TID PRN PO ELEVATED BLOOD PRESSURE Last administered on 01/17/17 14:22; Admin Dose 0.1 MG; Start 01/14/17 at 02:00 Escitalopram Oxalate (Lexapro) 20 mg DAILY PO Last administered on 01/18/17 09 :23; Admin Dose 20 MG; Start 01/14/17 at 09:00 Pramipexole 0.5 mg 0.5 mg HS PO Last administered on 01/17/17 22:28; Admin Dose 0.5 MG; Start 01/14/17 at 21:00 Norepinephrine/ Dextrose (Levophed/D5W) 500 ml @ 1.87 mls/hr TITRATE IV ; Start 01/14/17 at 09:00 Lorazepam (Ativan) 1 mg Q6H PRN IV AGITATION/ANXIETY; Start 01/14/17 at 07:30 Morphine Sulfate 2 mg 2 mg Q4H PRN IV PAIN Last administered on 01/18/17 13:49 ; Admin Dose 2 MG; Start 01/15/17 at 00:00 Meropenem/Sodium Chloride (Merrem 1 Gm/50 ml (Pmx)) 50 ml @ 100 mls/hr Q12 IVPB Last administered on 01/18/17 09:23; Admin Dose 100 MLS/HR; Start at 23:00 Sucralfate (Carafate Susp) 1 gm QID PO Last administered on 01/18/17 12:13; Admin Dose 1 GM; Start 01/15/17 at 17:00 AKIN BENITEZ Jan 18, 2017 14:34
[2017-01-18] MEDS: ONDANSETRON 4 MG INJ IV PRN (16:37)
[2017-01-18 16:40] VITALS: BP 136/94; PULSE 107
--- NOTE | 2017-01-18 18:34 | CONS ---
DATE OF ADMISSION: 01/13/2017 DATE OF CONSULTATION: 01/18/2017 TYPE OF CONSULTATION: Infectious Disease. REASON FOR CONSULTATION: Antibiotic management. HISTORY OF PRESENT ILLNESS: Laura Reynoso is a 66-year-old female who was admitted on the [facility] and then to the ICU with suspected GI bleed. Her problems include: 1. Alcohol abuse. 2. Depression. 3. Hypertension. She presented to the emergency room with melenic stools for 2 days prior to admission and felt very weak. She denied any hemoptysis or hematemesis. She stated that her last consumption of alcohol wa s 3 days prior to admission and she denied any alcoholic withdrawal seizures. She has a history of chronic urinary tract infections, but has had no urgency or frequency or dysuria at the time, but sh e had some suprapubic pain on palpation. On admission, her white count was 11.0, H and H of 6.6 and 17.9, platelet count of 237,000. Her white count as of the was 4.9. BUN and creatinine 9/0.73 . Urine on admission was positive for nitrite, 3+ leukocyte esterase, 20 white cells per high power ed field, consistent with urinary tract infection. MICROBIOLOGY: She had E. coli ESBL and enterococcus in the urine, enterococcus 40,000 to 50,000, se nsitive to ampicillin and she had ESBL sensitive to Zosyn. The patient is currently on meropenem 1 gram q. 12. Chest x-ray on admission showed no cardiopulmonary disease. CT scan of the abdomen and pelvis showe d decompressed gallbladder with cholelithiasis, no definite evidence for acute cholecystitis. Consi isrrael HIDA scan. Small hiatal hernia, mild sigmoid diverticulosis without evidence for acute divertic ulitis or appendicitis, small bilateral kidneys, mild atherosclerotic vascular disease and renal ult rasound, slightly increased echogenicity of the kidneys with no evidence of hydronephrosis, mild to moderate splenomegaly. HOSPITAL COURSE: 1. Anemia. The patient was seen by Dr. Campos for anemia. He did an EGD which showed mild distal esophagitis, post-gastrojejunostomy Billroth II, preserved pylorus and proximal duodenum, ulceration of both the afferent and efferent jejunal loops, no stigmata of recent bleeding, moderate gastritis . Currently, patient was seen by Dr. Long. The patient has severe hyponatremia, possibly second tawana to volume depletion. 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 2. Nonoligoanuric acute kidney injury, resolved. The patient is status post 3 units of packed red blood cells. 3. Severe hyponatremia, acute on chronic renal disease, hypothyroidism, hypertension, depression, a lcohol abuse, urinary tract infection with Escherichia coli extended-spectrum beta-lactamase and ent erococcus, currently on meropenem. PAST MEDICAL HISTORY: Operations as outlined. FAMILY HISTORY: Noncontributory. SOCIAL HISTORY: She does not smoke, drink or abuse drugs. ALLERGIES: NONE TO PENICILLIN, SULFA OR FOODS. MEDICATIONS: Per chart. REVIEW OF SYSTEMS: As per HPI. PHYSICAL EXAMINATION: GENERAL: The patient is a 66-year-old female who is awake, responsive, in no acute distress. VITAL SIGNS: Stable. She is afebrile. SKIN: Without generalized rash. HEENT: Within normal limits. NECK: Supple. LYMPH NODES: None palpable. CHEST: Decreased breath sounds at the bases. HEART: Without murmur or gallop. ABDOMEN: Soft, nontender, without organosplenomegaly or masses. EXTREMITIES: Without cyanosis, clubbing, or edema. RECTAL AND GENITAL: Deferred. NEUROLOGIC: No focal neurological abnormalities. Of note, the patient has some bed sores and wound medicare compliance auditor has been available to help with th e wounds. The patient is currently on meropenem, which should be adequate to cover enterococcus and the ESBL. I will dictate my findings to the hospitalist and to multiple consultants. Dictated By: FRANKLIN SANTIAGO MD, JD/DINAH Conf#: [id number] DID#: [id number] CC: MEKA SUE MD;*EndCC*
[2017-01-18 20:00] VITALS: BP 141/86; RESP 18
[2017-01-18] MEDS: PRAMIPEXOLE 0.25 MG TAB PO SCH (20:12)
[2017-01-19 02:33] VITALS: BP 126/77; RESP 18
[2017-01-19] MEDS: morphine 2 MG INJ IV PRN ×4 (03:42→16:13)
[2017-01-19] MEDS: PANTOPRAZOLE 40 MG INJ IV SCH (06:18)
[2017-01-19] MEDS: LEVOTHYROXINE 125 MCG TAB PO SCH (06:18)
[2017-01-19 07:02] LABS: CALCIUM 8.6 mg/dl (8.4-10.2); CREATININE 0.76 mg/dl (0.44-1.00); MAGNESIUM 1.6 mg/dl (1.7-2.5); PHOSPHORUS 3.4 mg/dl (2.5-4.9); POTASSIUM 4.7 mmol/L (3.5-5.1)
[2017-01-19 08:00] VITALS: BP 154/84; RESP 18
[2017-01-19] MEDS: SUCRALFATE (100 MG/ML) 10ML CUP PO SCH ×2 (09:51→12:02)
[2017-01-19] MEDS: ESCITALOPRAM 10 MG TAB PO SCH (09:51)
[2017-01-19] MEDS: MEROPENEM 1 GM/50ML(PMX) 50 ML IVPB SCH (09:51)
--- NOTE | 2017-01-19 10:24 | CONS ---
Date/Time of Note Date/Time of Note DATE: 01/19/17 TIME: 10:24 Consult Date/Type/Reason Admit Date/Time Jan 13, 2017 at 19:49 Initial Consult Date 01/14/17 Type of Consultation: GI Subjective all noted planned snf dc to [facility] Objective Vital Signs Date Time Temp Pulse Resp B/P Pulse Ox O2 Delivery O2 Flow Rate FiO2 01/19/17 08:00 98.2 77 18 154/84 94 01/18/17 16:40 Room Air Intake and Output 01/18/17 01/18/17 01/19/17 15:00 23:00 07:00 Intake Total 50 ml 590 ml 260 ml Output Total 800 ml 800 ml Balance 50 ml -210 ml -540 ml Results/Medications Result Diagram: 01/16/17 0500 01/19/17 0554 Results 24 hrs Laboratory Tests Test 01/18/17 12:00 01/19/17 05:54 Urine Color YELLOW Urine Clarity CLEAR Urine pH 6.0 Urine Specific [place] 1.010 Urine Ketones NEGATIVE Urine Nitrite NEGATIVE Urine Bilirubin NEGATIVE Urine Urobilinogen 1+ H Urine Leukocyte Esterase NEGATIVE Urine Hemoglobin NEGATIVE Urine Glucose NEGATIVE Urine Total Protein NEGATIVE Sodium Level 131 L Potassium Level 4.7 Chloride Level 95 L Carbon Dioxide Level 33 H Anion Gap 8 Blood Urea Nitrogen 11 Creatinine 0.76 Glucose Level 99 Calcium Level 8.6 Phosphorus Level 3.4 Magnesium Level 1.6 L Medications Current Medications Ondansetron HCl (Zofran Inj) 4 mg Q6H PRN IV NAUSEA AND/OR VOMITING Last administered on 01/18/17 16:37; Admin Dose 4 MG; Start 01/14/17 at 00:00 Pantoprazole (Protonix Iv) 40 mg BID@,18 IV Last administered on 01/19/17 06 :18; Admin Dose 40 MG; Start 01/14/17 at 06:00 Clonidine (Catapres) 0.1 mg TID PRN PO ELEVATED BLOOD PRESSURE Last administered on 01/18/17 20:21; Admin Dose 0.1 MG; Start 01/14/17 at 02:00 Escitalopram Oxalate (Lexapro) 20 mg DAILY PO Last administered on 01/19/17 09 :51; Admin Dose 20 MG; Start 01/14/17 at 09:00 Pramipexole (Mirapex) 0.5 mg HS PO Last administered on 01/18/17 20:12; Admin Dose 0.5 MG; Start 01/14/17 at 21:00 Lorazepam (Ativan) 1 mg Q6H PRN IV AGITATION/ANXIETY; Start 01/14/17 at 07:30 Morphine Sulfate 2 mg 2 mg Q4H PRN IV PAIN Last administered on 01/19/17 07:57 ; Admin Dose 2 MG; Start 01/15/17 at 00:00 Meropenem/Sodium Chloride (Merrem 1 Gm/50 ml (Pmx)) 50 ml @ 100 mls/hr Q12 IVPB Last administered on 01/19/17 09:51; Admin Dose 100 MLS/HR; Start at 23:00 Sucralfate (Carafate Susp) 1 gm QID PO Last administered on 01/19/17 09:51; Admin Dose 1 GM; Start 01/15/17 at 17:00 Assessment/Plan Chief Complaint/Hosp Course 1. Severe hyponatremia. Etiology initially was multifactorial secondary to volume depletion. 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 At this point, would recommend to limit free water intake to no more than 800 mL daily. Continue to encourage high osmolar diet and monitor sodium levels closely. 2. Nonoliguric acute kidney injury, resolved. Etiology is secondary to hemodynamics. Continue to monitor. Continue supportive care, renally dose all meds, avoid nephrotoxins. 3. Severe anemia with a GI bleed. The patient is status post blood transfusion. Continue Protonix. 4. Mineral bone disorder. Monitor calcium and phosphorus levels. 5. Status post shock. 6. Hypothyroidism. 7. History of alcohol abuse. Problems: BOONE LAW MD Jan 19, 2017 10:24
[2017-01-19] MEDS ORDERED: SULF1TAB31 PO (10:40)
--- NOTE | 2017-01-19 10:41 | PDOCDIS ---
Discharge Instructions CONDITION Patient Condition: Good HOME CARE INSTRUCTIONS: Diet Instructions: Regular ACTIVITY: Activity Restrictions: No Restrictions FOLLOW UP/APPOINTMENTS Follow-up Plan F/U WITH YOUR PCP IN 1-2 WEEKS AKIN BENITEZ Jan 19, 2017 10:41
[2017-01-19] MEDS ORDERED: BISACODYL (EC) 5 MG TAB PO ONE (11:00)
[2017-01-19] MEDS ORDERED: MAGNESIUM OXIDE 400 MG TAB PO ONE (11:00)
[2017-01-19] MEDS ORDERED: MAGNESIUM HYDROXIDE 30ML CUP PO ONE (11:00)
[2017-01-19 14:00] VITALS: BP 158/83; RESP 16
--- NOTE | 2017-01-19 14:08 | DS ---
Date/Time of Note Date/Time of Note DATE: 01/19/17 TIME: 14:00 Discharge Summary Admission/Discharge Info Admit Date/Time Jan 13, 2017 at 19:49 Discharge Date/Time January 19, 2017 Discharge Diagnosis #1 GI bleed status post EGD EGD shows mild distal esophagitis, Post gastrojejunostomy Billroth II, moderate gastritis, ulceration in both the afferent and efferent jejunal loops. No stigmata recent bleeding. DC with PPI and Carafate Patient is status post 3 units of packed blood cells Follow-up on biopsies #2 Hypotension secondary to severe dehydration-resolved with IV fluids #3 Severe hyponatremia: Likely multifactorial secondary to volume depletion as well as diuretics-improving Nephrology consultation appreciated DC home diuretics Fluid restriction #4 Acute on chronic kidney disease secondary to dehydration-improved with fluids Nephrology consultation appreciated #5 hypothyroidism Continue home Synthroid #6 hypertension Hold home meds secondary to above #7 depression: Continue home meds #8 history of alcohol abuse-currently denies any alcohol abuse 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 coli ID consultation DC with Bactrim #10 Debility with bedsores Wound care consult appreciated Patient resides in assisted living, patient refusing to go to prison and wants to go back to assisted living, patient reports already having home health nurse PT eval Patient Condition: Fair Hospital Course Patient is a 66-year-old female with a known history of alcohol abuse, depression, hypertension who presents to the emergency department from her assisted living facility for melanotic stools over the past 2 days. Patient was noted to be severely hyponatremic, patient was seen by nephrology she was given IV fluids her diuretics were held and sodium did improve. Patient also had acute kidney injury which resolved IV fluids. Patient was seen by GI and had an EGD that showed mild distal esophagitis, Post gastrojejunostomy Billroth II, moderate gastritis, ulceration in both the afferent and efferent jejunal loops. No stigmata recent bleeding, started on PPI and Carafate. Patient was noted to have a UTI secondary to ESBL E. Coli and enterococcus. Patient was started on meropenem and was seen by ID. Repeat UA showed resolution of the UTI. Patient was recommended to go to a senior care facility due to her debility, patient was adamant that she did not want to go want to return to her assisted living. She stated that she already had a home health nurse at the assisted living and does not need home health. Patient was stable for DC, on the day of discharge patient vitals labs physical exam were stable she had no acute complaints questions are answered. Home Meds Active Scripts Sulfamethoxazole/Trimethoprim* (Bactrim Ds* Tablet) 1 Each Tablet, 1 TAB PO BID for 3 Days, #6 TAB Prov:AKIN BENITEZ 01/19/17 Pantoprazole* (Protonix*) 40 Mg Tablet.dr, 40 MG PO DAILY for 60 Days, TAB Prov:AKIN BENITEZ 01/18/17 Sucralfate* (Carafate*) 1 Gm/10 Ml Susp, 1 GM PO QID for 30 Days Prov:AKIN BENITEZ 01/18/17 Reported Medications Nebivolol Hcl* (Bystolic*) 10 Mg Tablet, 10 MG PO DAILY, #30 TAB 01/13/17 Escitalopram Oxalate* (Lexapro*) 20 Mg Tablet, 20 MG PO DAILY, #30 TAB 01/13/17 Olmesartan Medoxomil (Benicar) 40 Mg Tablet, 40 MG PO DAILY, #30 TAB 01/13/17 Omeprazole* (Omeprazole*) 40 Mg Capsule.dr, 40 MG PO DAILY, #30 CAP 01/13/17 Pramipexole* (Pramipexole*) 0.5 Mg Tablet, 0.5 MG PO HS, TAB 01/13/17 Topiramate* (Topiramate*) 50 Mg Tablet, 50 MG PO DAILY, TAB 01/13/17 Potassium Chloride* (K-Dur*) 20 Meq Tab.prt.sr, 20 MEQ PO DAILY, TAB.SA 01/13/17 Gabapentin* (Gabapentin*) 600 Mg Tablet, 600 MG PO BID, #60 TAB 01/13/17 Zolpidem Tartrate* (Zolpidem Tartrate*) 5 Mg Tablet, 5 MG PO QHS Y for INSOMNIA , #30 TAB 01/13/17 Spironolactone* (Aldactone*) 25 Mg Tablet, 25 MG PO DAILY, #30 TAB 01/13/17 Docusate Sodium* (Dok*) 250 Mg Capsule, 250 MG PO DAILY, #30 CAP 01/13/17 Ergocalciferol (Vitamin D2) (VITAMIN D2) 50,000 Unit Capsule, 94819 UNIT PO EVERY 7 DAYS, CAP 01/13/17 Ferrous Sulfate* (Ferrous Sulfate*) 325 Mg Tabec, 325 MG PO DAILY, TAB 01/13/17 Clonidine Hcl* (Clonidine Hcl*) 0.1 Mg Tab, 0.1 MG PO TID Y for ELEVATED BLOOD PRESSURE, TAB 01/13/17 Levothyroxine Sodium* (Levothyroxine Sodium*) 125 Mcg Tablet, 125 MCG PO BEFORE BREAKFAST, #30 TAB 09/16/16 Discontinued Reported Medications Furosemide* (Furosemide*) 40 Mg Tablet, 40 MG PO DAILY, TAB 01/13/17 Hydrochlorothiazide* (Hydrochlorothiazide*) 50 Mg Tab, 50 MG PO DAILY, #30 TAB 01/13/17 Follow-up Plan F/U WITH YOUR PCP IN 1-2 WEEKS Primary Care Provider Ron Mcdermott Time spent on discharge: > 30 minutes AKIN BENITEZ Jan 19, 2017 14:08
--- NOTE | 2017-01-19 16:15 | CONS ---
Date/Time of Note Date/Time of Note DATE: 01/19/17 TIME: 16:14 Assessment/Plan Assessment/Plan Chief Complaint/Hosp Course ID PROGRESS NOTE TOTAL ABX DAY CURRENT ABX=> Merrem 01/15 - 01/19 = 5 days 24H INTERVAL SUMMARY * A/A/O, dressed and ready to DC home, feels well, ambulatory in the room EXAM GENERAL: VSS, NAD HEENT: Unremarkable NECK: Supple, full ROM CHEST: Rise symmetrical, without dyspnea on observation ABDOMEN: Soft, NT EXTREMITIES: Warm SKIN: No diaphoresis, no rash ID ASSESSMENT: 66-year-old female who was admitted on the to telemetry and then to the ICU with suspected GI bleed. 1. RESOLVING UTI / chronic UTIs * She had E. coli ESBL and enterococcus in the urine, enterococcus 40,000 to 50 ,000, sensitive to ampicillin and she had ESBL sensitive to Zosyn. The patient is currently on meropenem 1 gram q. 12. 2. Anemia -> s/p PRBCs 3. s/p EGD => Gastritis -> ETOH gastritis 4. s/p Acute/CKD 5. Depression. 6. Hypertension. INVASIVES: PIV ABX ALLERGY: KNDA CURRENT ABX=>Merrem 01/15 - 01/19 = 5 days ID PLAN 1. OK to DC home on PO Bactrim for hx of chronic recurrent UTI's 2. Low colonyEnterococcus and ESBL UTI => now asymptomatic without symptoms = OK to DC Merrem IV & DC home . . Problems: Consultation Date/Type/Reason Admit Date/Time Jan 13, 2017 at 19:49 Initial Consult Date 01/14/17 Type of Consultation: ID Exam/Review of Systems Vital Signs Vitals Vital Signs Date Time Temp Pulse Resp B/P Pulse Ox O2 Delivery O2 Flow Rate FiO2 01/19/17 14:00 99.0 108 16 158/83 96 01/18/17 16:40 Room Air Intake and Output 01/18/17 01/18/17 01/19/17 15:00 23:00 07:00 Intake Total 50 ml 590 ml 260 ml Output Total 800 ml 800 ml Balance 50 ml -210 ml -540 ml Results Result Diagram: 01/16/17 0500 01/19/17 0554 Results 24 hrs Laboratory Tests Test 01/19/17 05:54 Sodium Level 131 L Potassium Level 4.7 Chloride Level 95 L Carbon Dioxide Level 33 H Anion Gap 8 Blood Urea Nitrogen 11 Creatinine 0.76 Glucose Level 99 Calcium Level 8.6 Phosphorus Level 3.4 Magnesium Level 1.6 L Medications Medications Current Medications Ondansetron HCl (Zofran Inj) 4 mg Q6H PRN IV NAUSEA AND/OR VOMITING Last administered on 01/18/17 16:37; Admin Dose 4 MG; Start 01/14/17 at 00:00 Pantoprazole (Protonix Iv) 40 mg BID@,18 IV Last administered on 01/19/17 06 :18; Admin Dose 40 MG; Start 01/14/17 at 06:00 Clonidine (Catapres) 0.1 mg TID PRN PO ELEVATED BLOOD PRESSURE Last administered on 01/18/17 20:21; Admin Dose 0.1 MG; Start 01/14/17 at 02:00 Escitalopram Oxalate (Lexapro) 20 mg DAILY PO Last administered on 01/19/17 09 :51; Admin Dose 20 MG; Start 01/14/17 at 09:00 Pramipexole (Mirapex) 0.5 mg HS PO Last administered on 01/18/17 20:12; Admin Dose 0.5 MG; Start 01/14/17 at 21:00 Lorazepam (Ativan) 1 mg Q6H PRN IV AGITATION/ANXIETY; Start 01/14/17 at 07:30 Morphine Sulfate 2 mg 2 mg Q4H PRN IV PAIN Last administered on 01/19/17 16:13 ; Admin Dose 2 MG; Start 01/15/17 at 00:00 Meropenem/Sodium Chloride (Merrem 1 Gm/50 ml (Pmx)) 50 ml @ 100 mls/hr Q12 IVPB Last administered on 01/19/17 09:51; Admin Dose 100 MLS/HR; Start at 23:00 Sucralfate (Carafate Susp) 1 gm QID PO Last administered on 01/19/17 12:02; Admin Dose 1 GM; Start 01/15/17 at 17:00 LUÍS SILVA NP Jan 19, 2017 16:15
== END 2017-01-19 18:27 | disposition home or self-care (01) | DRG 377 ==
LOC: E/R 17:04 → ICU 19:49 → PP2 01-16 18:23
PROVIDERS: ADMIT Family Medicine; ATTEND Family Medicine
PROC: 30233N1 Transfusion of Nonautologous Red Blood Cells into Peripheral Vein, Percutaneous Approach (ICD-10-PCS; 2017-01-13)
PROC: 0DB78ZX Excision of Stomach, Pylorus, Via Natural or Artificial Opening Endoscopic, Diagnostic (ICD-10-PCS; principal; 2017-01-14 21:10)
DX: K92.2 Gastrointestinal hemorrhage, unspecified (principal); R57.1 Hypovolemic shock; N17.9 Acute kidney failure, unspecified; I95.9 Hypotension, unspecified; L89.90 Pressure ulcer of unspecified site, unspecified stage; E87.1 Hypo-osmolality and hyponatremia; N39.0 Urinary tract infection, site not specified; D62 Acute posthemorrhagic anemia; I12.9 Hypertensive chronic kidney disease with stage 1 through stage 4 chronic kidney disease, or unspecified chronic kidney disease; N18.9 Chronic kidney disease, unspecified; F10.10 Alcohol abuse, uncomplicated; K29.20 Alcoholic gastritis without bleeding; B95.2 Enterococcus as the cause of diseases classified elsewhere; B96.20 Unspecified Escherichia coli [E. coli] as the cause of diseases classified elsewhere; Z16.12 Extended spectrum beta lactamase (ESBL) resistance; E03.9 Hypothyroidism, unspecified; K20.9 Esophagitis, unspecified; R63.1 Polydipsia
CPT/HCPCS: 36430; 71010; 74176; 76775; 80048; 80053; 80306; 80307; 81001; 81003; 82043; 82150; 83540; 83605; 83690; 83735; 83930; 83935; 84100; 84155; 84295; 84300; 84484; 85014; 85018; 85025; 85610; 85730; 86850; 86900; 86901; 86920; 87040; 87081; 87086; 88305; 88312; 93005; 96374; 96375; 97110; 97163; 97530; C9113; J0696; J2060; J2185; J2270; J2405; J3010; J3411; J3475; J7030; J7060; J7070; P9016

== ENCOUNTER 2017-01-29 16:58 | Inpatient (IN) | END 2017-02-15 11:56 | disposition home or self-care (01) | DRG 392 ==

== ENCOUNTER 2017-09-04 18:31 | Emergency (ER) | END 2017-09-05 00:40 | disposition left against medical advice (07) ==

== ENCOUNTER 2017-09-15 01:04 | Emergency (ER) | END 2017-09-15 15:30 | disposition home or self-care (01) ==

== ENCOUNTER 2018-02-15 09:12 | Emergency (ER) | payer MEDICARE, OTHER ==
[~2018-02-15] VITALS: Ht 167.6 cm; Wt 70.0 kg
[~2018-02-15 09:12] MED LIST changes: +CARAS PO; +CEPH-443 PO; +CLON-379 PO; +DOCU250C68 PO; +ERGO500013 PO; +ESCI20TA PO; +FER325 PO; +HYDR25SU23 PR; +HYDR25TA6 PO; -LEVO125T75 PO; +LEVO137T3 PO; +METO2.5T PO; +MULTI PO; +NEBI5TAB9 PO; +OLME40TA13 PO; +PANT40TA4 PO; +POLY17PO6 PO; +POTA20TA15 PO; +PRAM0.5T5 PO; +PREMVAG VAG; +SENN1TAB19 PO; +SIME80TA60 PO; +SPIR25TA PO; +TEMA15CA PO; +TOPI25CA PO; +TRAZ-111 PO
[2018-02-15 09:20] VITALS: Ht 167.6 cm; Wt 70.0 kg
[2018-02-15] MEDS ORDERED: DIPHTH/TET/ACEL PERTUSS (ADULT) 0.5 ML VIAL IM* ONE (09:30)
[2018-02-15] MEDS ORDERED: ACETAMINOPHEN 500 MG TAB PO STA (11:06)
--- NOTE | 2018-02-15 11:08 | ERD ---
ER Documentation Chief Complaint Chief Complaint BIB [facility] FOR EVAL OF GROUND LEVEL FALL. LAC TO BACK OF HEAD. NO KO. HPI This 67-year-old female who presents for evaluation of a ground-level mechanical fall with a laceration to the back of her head. She denies loss conscious, no vomiting, she is not currently on any blood thinners, she denies any other injuries. Currently she only complains of head pain. Does not recall last tetanus ROS All systems reviewed and are negative except as per history of present illness. Medications Home Meds Active Scripts Cephalexin* (Keflex*) 500 Mg Capsule, 500 MG PO BID for 7 Days, CAP Prov:CATHI LAROSE MD 09/04/17 Hydrocortisone Acetate (Anusol-Hc) 25 Mg Supp.rect, 25 MG MN BID, #60 SUPP.RECT 3 Refills Prov:AKIN BENITEZ 02/14/17 Simethicone* (Mylicon*) 80 Mg Tab, 80 MG PO Q6H PRN for DISTENSION/GAS/BLOATING, #60 TAB 2 Refills Prov:AKIN BENITEZ 02/14/17 Sennosides/Docusate Sodium (Dok Plus Tablet) 1 Each Tablet, 1 TAB PO BID, #60 TAB 3 Refills Prov:AKIN BENITEZ 02/14/17 Polyethylene Glycol* (Miralax*) 17 Gm Powd.pack, 17 GM PO BID PRN for constipation, #60 PACKET 1 Refill Prov:AKIN BENITEZ 02/14/17 Pantoprazole* (Pantoprazole*) 40 Mg Tablet.dr, 40 MG PO BID@,18, #60 TAB 3 Refills Prov:AKIN BENITEZ 02/14/17 Sucralfate* (Carafate*) 1 Gm/10 Ml Susp, 1 GM PO QID for 30 Days Prov:AKIN BENITEZ 01/18/17 Reported Medications Trazodone Hcl* (Trazodone Hcl*) 50 Mg Tablet, 50 MG PO QHS, #30 TAB 01/29/17 Temazepam* (Temazepam*) 15 Mg Capsule, 15 MG PO HS MAY REPEAT X 1 PRN for INSOMNIA, CAP 01/29/17 Hydrochlorothiazide* (Hydrochlorothiazide*) 25 Mg Tab, 25 MG PO DAILY, #30 TAB 01/29/17 Metolazone* (Metolazone*) 2.5 Mg Tablet, 2.5 MG PO DAILY, TAB 01/29/17 Spironolactone* (Aldactone*) 25 Mg Tablet, 25 MG PO DAILY, #30 TAB 01/29/17 Pramipexole* (Mirapex*) 0.5 Mg Tablet, 0.5 MG PO DAILY, TAB 01/29/17 Ergocalciferol (Vitamin D2) (VITAMIN D2) 50,000 Unit Capsule, 79465 UNIT PO WEEKLY, CAP 01/29/17 Nebivolol* (Bystolic*) 5 Mg Tab, 5 MG PO DAILY, #30 TAB 01/29/17 Topiramate* (Topamax*) 25 Mg Cap.sprink, 100 MG PO DAILY, CAP 01/29/17 Levothyroxine Sodium* (Levothyroxine Sodium*) 137 Mcg Tablet, 137 MCG PO BEFORE BREAKFAST, #30 TAB 01/29/17 Estrogens Conjugated* (Premarin* Vaginal Cream) 1 Applic Cr, 1 APPLIC VAG EVERY 2 DAYS, TUB 01/29/17 Multivitamins* (Theragran*) 1 Tab Tab, 1 TAB PO DAILY, TAB 01/29/17 Escitalopram Oxalate* (Lexapro*) 20 Mg Tablet, 20 MG PO DAILY, #30 TAB 01/13/17 Olmesartan Medoxomil (Benicar) 40 Mg Tablet, 40 MG PO DAILY, #30 TAB 01/13/17 Potassium Chloride* (K-Dur*) 20 Meq Tab.prt.sr, 20 MEQ PO DAILY, TAB.SA 01/13/17 Docusate Sodium* (Dok*) 250 Mg Capsule, 250 MG PO DAILY, #30 CAP 01/13/17 Ferrous Sulfate* (Ferrous Sulfate*) 325 Mg Tabec, 325 MG PO DAILY, TAB 01/13/17 Clonidine Hcl* (Clonidine Hcl*) 0.1 Mg Tab, 0.1 MG PO TID PRN for ELEVATED BLOOD PRESSURE, TAB 01/13/17 Allergies Allergies: Coded Allergies: No Known Allergy (Unverified , 01/29/17) PMhx/Soc History of Surgery: Yes (OVARIES REMOVED. LEFT KNEE REPLACEMENT) Anesthesia Reaction: No Hx Neurological Disorder: Yes (NEUROPATHY) Hx Respiratory Disorders: No Hx Cardiac Disorders: Yes Hx Psychiatric Problems: No Hx Miscellaneous Medical Probl: Yes (ALCOHOLIC) Hx Alcohol Use: Yes (ETOH ABUSE) Hx Substance Use: No Hx Tobacco Use: Yes Smoking Status: Never smoker Physical Exam Vitals Vital Signs Date Temp Pulse Resp B/P (MAP) Pulse Ox O2 O2 Flow FiO2 Time Delivery Rate 02/15/18 98.1 78 16 141/88 98 Room Air 11:40 (105) 02/15/18 96.3 84 18 157/96 99 09:20 (116) Physical Exam Const: No acute distress Head: 2 cm laceration noted over the occiput, there are no frontal hematomas, no raccoon eyes, midface stable, no loose dentition. Eyes: Normal Conjunctiva ENT: Normal External Ears, Nose and Mouth. Neck: Full range of motion. No meningismus. Resp: Clear to auscultation bilaterally Cardio: Regular rate and rhythm, no murmurs Abd: Soft, non tender, non distended. Normal bowel sounds Skin: No petechiae or rashes Back: No midline or flank tenderness Ext: No cyanosis, or edema Neur: Awake and alert Psych: Normal Mood and Affect Results 24 hrs Current Medications Medications Dose Sig/Bettye Start Time Status Last (Trade) Ordered Route PRN Stop Time Admin Dose Reason Admin Diphtheria/ 0.5 ml ONCE ONCE 02/15/18 DC 02/15/18 Tetanus/Acell IM* 09:30 02/15/18 09:46 Pertussis 09:31 (Adacel) 1,000 mg ONCE STAT 02/15/18 DC Acetaminophen PO 11:06 02/15/18 (Tylenol 11:07 Tab) Procedures/MDM This is a 67-year-old female presents for dilation of mechanical fall with laceration to back of her head. Laceration was repaired without complication, tetanus was also updated. Provided return precautions the patient, her CT brain and CT C-spine were all negative. Secondary survey reviewed no other injuries. At discharge patient with no acute distress Laceration Repair by me: Anesthesia: None Location: Occiput Tendon/Joint/Nerves: No injury Foreign body: None detected after copious irrigation and exploration Technique: Simple Interrupted Sutures Complexity: No subcutaneous sutures/mucosal repair/edge excision Post Closure Length: 2 cm Patient's bleeding was easily controlled in the department and there is no indication of anemia. No evidence of compartment syndrome, neurologic injury, vascular injury, open joint, tendon laceration, or foreign body. Patient is appropriate for outpatient follow up. 48 hour wound check. Scar minimization instructions given. Departure Diagnosis: Primary Impression: Head trauma Encounter type: initial encounter Qualified Codes: S09.90XA - Unspecified injury of head, initial encounter Additional Impression: Laceration Condition: Stable Patient Instructions: HEAD INJURY, No Wake-Up (Adult) Additional Instructions: Call your primary care doctor TOMORROW for an appointment during the next 2-3 days.See the doctor sooner or return here if your condition worsens before your appointment time. DEVIKA HAMILTON MD Feb 15, 2018 11:08
[2018-02-15 11:40] VITALS: BP 141/88; PULSE 78; RESP 16
== END 2018-02-15 11:50 | disposition home or self-care (01) ==
LOC: E/R 09:12
DX: S01.81XA Laceration without foreign body of other part of head, initial encounter (principal); S09.90XA Unspecified injury of head, initial encounter; W18.30XA Fall on same level, unspecified, initial encounter; Y92.9 Unspecified place or not applicable; Z23 Encounter for immunization; Z87.891 Personal history of nicotine dependence; Z96.652 Presence of left artificial knee joint
CPT/HCPCS: 70450; 72125; 90471; 90715